=== PATIENT | male | born 1950 | race Caucasian/White ===

== ENCOUNTER 2019-02-28 15:12 | Emergency (ER) | payer MEDICARE ==
[2019-02-28 15:24] VITALS: BP 130/68; PULSE 62; RESP 16; TEMP 97.7
--- NOTE | 2019-02-28 15:36 | ED ---
Upper Extremity HPI - General Chief Complaint: Extremity Injury, Upper Stated Complaint: Fall-Wrist Injury Time Seen by Provider: 02/28/19 15:31 Source: patient Mode of arrival: ambulatory Limitations: no limitations - History of Present Illness Initial Comments: 68-year-old male presenting for evaluation of right wrist pain x 1 day s/p fall. Patient states he fell yesterday catching himself with the right wrist after he tripped trying to put on his pants. Patient states he has not hit his head of injury to any other extremity. Patient states he has had pain in his right wrist with ROM, he states the wrist was bent inward. Patient denies loss of sensation or muscle weakness. Denies pain at elbow or shoulder. Remaining ROS (- ). Upon arrival patient appears well, no acute distress. - Related Data Allergies Allergy/AdvReac Type Severity Reaction Status Date / Time cephalexin [From Keflex] Allergy Rash/Hives Verified 02/28/19 15:22 Review of Systems ROS Statement: Those systems with pertinent positive or pertinent negative responses have been documented in the HPI. ROS Other: All systems not noted in ROS Statement are negative. Past Medical History Past Medical History: CVA/TIA, Hyperlipidemia, Hypertension, Myocardial Infarction ([place]) History of Any Multi-Drug Resistant Organisms: None Reported Past Surgical History: Appendectomy, Back Surgery, Heart Catheterization With Stent, Orthopedic Surgery, Tonsillectomy Additional Past Surgical History / Comment(s): left knee Past Psychological History: No Psychological Hx Reported Smoking Status: Never smoker Past Alcohol Use History: None Reported Past Drug Use History: None Reported General Exam - General Exam Comments Initial Comments: General: The patient is awake and alert, in no distress, and does not appear acutely ill. Eye: Pupils are equal, round and reactive to light, extra-ocular movements are intact. No nystagmus. There is normal conjunctiva bilaterally. No signs of icterus. . No raccoon or Cobb sign. Cardiovascular: There is a regular rate and rhythm. No murmur, rub or gallop is appreciated. Respiratory: Lungs are clear to auscultation, respirations are non-labored, breath sounds are equal. No wheezes, stridor, rales, or rhonchi. Musculoskeletal: No gross deformity of his nose after she saw ecchymosis lacerations or abrasion noted of the wrist or upper extremities bilaterally. Patient is able to fully range at the wrist bilaterally complaint discomfort range of motion at the right wrist. Patient is no anatomical snuffbox tenderness. Strength preserved at the SHOULDERS wrist bilaterally. Patient is able to the okay fingers crossed thumbs up and oppose the small digit and thumb. Patient is +2 equal radial pulses bilaterally. Capillary refill less than 3 seconds. Patient is point localized tenderness over the ulnar aspect of the right wrist. Neurological: A&O x 3. CN II-XII intact, There are no obvious motor or sensory deficits. Coordination appears grossly intact. Speech is normal. Skin: Skin is warm and dry and no rashes or lesions are noted. Psychiatric: Cooperative, appropriate mood & affect, normal judgment. Limitations: no limitations Course Vital Signs 02/28/19 15:19 Temperature 97.7 F Pulse Rate 62 Respiratory 16 Rate Blood Pressure 130/68 O2 Sat by Pulse 98 Oximetry Medical Decision Making - Medical Decision Making 68-year-old male presenting for right wrist pain after fall. Imaging states negative for acute process. Patient neurovascularly intact. Patient placed in Shay bandage. No snuffbox tenderness. Patient advised to follow-up with his primary care provider for the extensive arthritis noted on the imaging studies. As well as to obtain repeat imaging studies if symptoms are persisting greater than 7 days. Rest instruction use of NSAIDs discussed patient discharge appear normal group health care plan given Toradol prior to discharge case discussed mentally provider Dr. Wesley Disposition Clinical Impression: Right wrist pain, Fall Disposition: HOME SELF-CARE Condition: Good Instructions (If sedation given, give patient instructions): R.I.C.E. Treatment (ED), Wrist Sprain (ED) Additional Instructions: Please use medication as discussed. Please follow-up with family doctor in the next 2 days, if pain persists please repeat XR in 1 week. Please return to emergency room if the symptoms increase or worsen or for any other concerns. Is patient prescribed a controlled substance at d/c from ED?: No Referrals: Nonstaff,Physician [Primary Care Provider] - 1-2 days Time of Disposition: 16:23
--- NOTE | 2019-02-28 15:58 | XR ---
EXAMINATION TYPE: XR hand complete RT DATE OF EXAM: 02/28/2019 COMPARISON: NONE HISTORY: Pain TECHNIQUE: Three views are submitted. FINDINGS: There is cystic change involving the scaphoid which appears chronic and there is narrowing of the rad iocarpal joint. Chondrocalcinosis noted. Well-corticated density adjacent to the medial margin of the scaphoid appears chronic. Tiny cyst in the proximal phalanx second digit has a benign appearance. IMPRESSION: 1. No definite acute fracture or dislocation if symptoms persist, follow-up study in 7 to 10 days wo uld be suggested
--- NOTE | 2019-02-28 16:00 | XR ---
EXAMINATION TYPE: XR wrist complete RT DATE OF EXAM: 02/28/2019 CLINICAL HISTORY: Pain from fall on the right wrist TECHNIQUE: Frontal, lateral and oblique images of the right wrist are obtained. Scaphoid view was al so obtained. COMPARISON: None FINDINGS: There is no acute fracture/dislocation evident in the right wrist. Subchondral and subcort ical cysts are present of the radius and multiple carpal bones. Narrowing of the first carpometacarpa l joint and osseous proliferation are seen. The joint spaces in the left wrist appear narrowed. No wi dening. Calcification of the triangular fibrocartilage is seen. The overlying soft tissue appears un remarkable. IMPRESSION: There is no acute fracture or dislocation in the right wrist. Moderate to advanced arthr opathy of the right hand with numerous subcortical cysts, joint space narrowing, and calcification of the triangle fibrocartilage.
[2019-02-28] MEDS ORDERED: KETOROLAC 30 MG/ML 1 ML VIAL IM STA (16:29)
== END 2019-02-28 16:38 | disposition home or self-care (01) ==
LOC: EC 15:12
DX: M25.531 Pain in right wrist (principal); M19.041 Primary osteoarthritis, right hand; Z88.1 Allergy status to other antibiotic agents; W01.0XXA Fall on same level from slipping, tripping and stumbling without subsequent striking against object, initial encounter; Y93.89 Activity, other specified
CPT/HCPCS: 73110; 73130; 99283; 96372; J1885

== ENCOUNTER 2019-05-18 07:03 | Emergency (ER) | payer MEDICARE ==
[2019-05-18 07:14] VITALS: BP 157/68; PULSE 78; RESP 18; TEMP 98.2
--- NOTE | 2019-05-18 07:31 | ED ---
ENT HPI - General Chief complaint: ENT Stated complaint: sore throat Time Seen by Provider: 05/18/19 07:20 Source: patient Mode of arrival: ambulatory Limitations: no limitations - History of Present Illness Initial comments: Patient is a 68-year-old male presenting to emergency Department with complaints of a sore throat. Patient states he's had upper respiratory type symptoms including runny nose, congestion for a few days now. Patient states he put Vicks under his nose and is not shows last night and stated he took in a deep breath and feels like he inhaled or swollowed some Vicks. Patient states he came today because he feels like his throat is irritated or even clothing at times. Patient denies chest pain, difficulty breathing, fever, chills, nausea, vomiting. Patient has no other complaints at this time. Upon arrival to the ER, his vital signs are stable. - Related Data Allergies Allergy/AdvReac Type Severity Reaction Status Date / Time cephalexin [From Keflex] Allergy Rash/Hives Verified 05/18/19 07:14 Review of Systems ROS Statement: Those systems with pertinent positive or pertinent negative responses have been documented in the HPI. ROS Other: All systems not noted in ROS Statement are negative. Past Medical History Past Medical History: CVA/TIA, Hyperlipidemia, Hypertension, Myocardial Infarction ([place]) History of Any Multi-Drug Resistant Organisms: None Reported Past Surgical History: Appendectomy, Back Surgery, Heart Catheterization With Stent, Orthopedic Surgery, Tonsillectomy Additional Past Surgical History / Comment(s): left knee Past Psychological History: No Psychological Hx Reported Smoking Status: Never smoker Past Alcohol Use History: None Reported Past Drug Use History: None Reported General Exam - General Exam Comments Initial Comments: GENERAL: Well-appearing, well-nourished and in no acute distress. HEAD: Atraumatic, normocephalic. EYES: Pupils equal round and reactive to light, extraocular movements intact, sclera anicteric, conjunctiva are normal. ENT: TMs normal, nares patent, oropharynx clear without exudates. Moist mucous membranes. NECK: Normal range of motion, supple without lymphadenopathy or JVD. LUNGS: Breath sounds clear to auscultation bilaterally and equal. No wheezes rales or rhonchi. HEART: Regular rate and rhythm without murmurs, rubs or gallops. ABDOMEN: Soft, nontender, normoactive bowel sounds. No guarding, no rebound. No masses appreciated. : Deferred EXTREMITIES: Normal range of motion, no pitting or edema. No clubbing or cyanosis. NEUROLOGICAL: Cranial nerves II through XII grossly intact. Normal speech, normal gait. PSYCH: Normal mood, normal affect. SKIN: Warm, Dry, normal turgor, no rashes or lesions noted. Limitations: no limitations Course Vital Signs 05/18/19 07:11 Temperature 98.2 F Pulse Rate 78 Respiratory 18 Rate Blood Pressure 157/68 O2 Sat by Pulse 98 Oximetry Medical Decision Making - Medical Decision Making Patient is a 8-year-old male presenting with a sore throat and congestion for 2 days. Patient was concerned he swallowed Vicks. Chest x-ray and soft tissue neck x-ray are both normal, no acute abnormalities. Patient vitals remained sta ble. I discussed these findings with the patient. He'll continue to use [id number] remedies for his cough and clear nasal drainage. Patient is stable for discharge at this time. He is in agreement with this plan of care. Case discussed with Dr. Alexander. Disposition Clinical Impression: Sore throat (viral) Disposition: HOME SELF-CARE Condition: Stable Instructions (If sedation given, give patient instructions): Cold Symptoms (ED) Additional Instructions: Please return to the Emergency Department if symptoms worsen or any other concerns. Follow-up with PCP as symptoms persist. Is patient prescribed a controlled substance at d/c from ED?: No Referrals: Nonstaff,Physician [Primary Care Provider] - 1-2 days
--- NOTE | 2019-05-18 07:58 | XR ---
EXAMINATION TYPE: XR soft tissue neck DATE OF EXAM: 05/18/2019 COMPARISON: None HISTORY: Cough feels like something is stuck in his throat TECHNIQUE: 2 view soft tissue neck FINDINGS: Epiglottis appears normal. Prevertebral space is normal. Multiple anterior vertebral body s purs are noted. No radiopaque foreign bodies are evident. Subglottic airway appears unremarkable. IMPRESSION: 1. Soft tissue neck appears within normal limits. 2. Note is made of degenerative changes within the cervical spine including some anterior vertebral b tk spurring.
--- NOTE | 2019-05-18 07:59 | XR ---
EXAMINATION TYPE: XR chest 2V DATE OF EXAM: 05/18/2019 COMPARISON: None INDICATION: Cough, productive TECHNIQUE: Frontal and lateral views of the chest are obtained. FINDINGS: The heart size is normal. The pulmonary vasculature is normal. The lungs are clear. IMPRESSION: 1. No acute pulmonary process.
== END 2019-05-18 08:15 | disposition home or self-care (01) ==
LOC: EC 07:03
DX: J02.8 Acute pharyngitis due to other specified organisms (principal); I25.2 Old myocardial infarction; I10 Essential (primary) hypertension; Z88.1 Allergy status to other antibiotic agents; Z86.73 Personal history of transient ischemic attack (TIA), and cerebral infarction without residual deficits; Z95.5 Presence of coronary angioplasty implant and graft
CPT/HCPCS: 70360; 71046; 99283

== ENCOUNTER 2020-01-14 12:30 | Emergency (ER) | payer MEDICARE, OTHER ==
[2020-01-14 12:37] VITALS: BP 135/75; PULSE 84; RESP 18; TEMP 98.6
--- NOTE | 2020-01-14 12:37 | ED ---
General Adult HPI - General Stated complaint: Fall Time Seen by Provider: 01/14/20 12:32 Source: patient, EMS, RN notes reviewed - History of Present Illness Initial comments: 61-year-old male presents status post fall with head injury, right shoulder injury, right knee injury. Patient states he was at a restaurant, had went to open a locked door, turned around and fell down one step and then rolled down an additional 3 steps. He did hit his right shoulder, right knee, and the left side of his head. There was no loss of consciousness. Patient is on aspirin and Plavix. He was ambulatory on scene. No chest or abdominal pain. He states that he had tripped and this was a mechanical fall. - Related Data Home Medications Medication Instructions Recorded Confirmed Aspirin [Adult Low Dose Aspirin EC] 81 mg PO HS 01/14/20 01/14/20 Atorvastatin [Lipitor] 80 mg PO HS 01/14/20 01/14/20 Cetirizine HCl [Zyrtec] 10 mg PO DAILY 01/14/20 01/14/20 Clopidogrel [Plavix] 75 mg PO HS 01/14/20 01/14/20 Dulaglutide [Trulicity] 1.5 mg SQ WE 01/14/20 01/14/20 Empagliflozin [Jardiance] 10 mg PO DAILY 01/14/20 01/14/20 Finasteride [Proscar] 5 mg PO DAILY 01/14/20 01/14/20 Fluticasone Nasal Mcleod [Flonase 1 spr EA NOSTRIL DAILY PRN 01/14/20 01/14/20 Nasal Mcleod] Gabapentin 1,600 mg PO DAILY 01/14/20 01/14/20 Gabapentin 800 mg PO HS 01/14/20 01/14/20 Insulin Glargine,Hum.rec.anlog 14 unit SQ HS 01/14/20 01/14/20 [Lantus Solostar] Lidocaine 5% Patch [Lidoderm] 1 patch TOPICAL DAILY PRN 01/14/20 01/14/20 Metoprolol Succinate [Toprol XL] 50 mg PO DAILY 01/14/20 01/14/20 Multivitamins, Thera [Multivitamin 1 tab PO DAILY 01/14/20 01/14/20 (formulary)] Tamsulosin [Flomax] 0.4 mg PO DAILY 01/14/20 01/14/20 glipiZIDE [Glucotrol XL] 10 mg PO DAILY 01/14/20 01/14/20 lisinopriL [Zestril] 2.5 mg PO DAILY 01/14/20 01/14/20 metFORMIN HCL 1,000 mg PO BID 01/14/20 01/14/20 oxyCODONE-APAP 10-325MG [Percocet 1 tab PO TID PRN 01/14/20 01/14/20 10-325 mg] Allergies Allergy/AdvReac Type Severity Reaction Status Date / Time cephalexin [From Keflex] Allergy Rash/Hives Verified 01/14/20 14:11 Review of Systems ROS Statement: Those systems with pertinent positive or pertinent negative responses have been documented in the HPI. ROS Other: All systems not noted in ROS Statement are negative. Past Medical History Past Medical History: CVA/TIA, Hyperlipidemia, Hypertension, Myocardial Infarction ([place]) History of Any Multi-Drug Resistant Organisms: None Reported Past Surgical History: Appendectomy, Back Surgery, Heart Catheterization With Stent, Orthopedic Surgery, Tonsillectomy Additional Past Surgical History / Comment(s): left knee Past Psychological History: No Psychological Hx Reported Past Alcohol Use History: None Reported Past Drug Use History: None Reported General Exam General appearance: alert, in no apparent distress Head exam: Present: normocephalic, other (Small left parietal occipital hematoma, no laceration, no bleeding, no palpable skull deformity) Eye exam: Present: normal appearance, PERRL, EOMI ENT exam: Present: normal exam Neck exam: Present: normal inspection, other (C-collar placed by EMS). Absent: tenderness, meningismus Respiratory exam: Present: normal lung sounds bilaterally. Absent: respiratory distress, wheezes Cardiovascular Exam: Present: regular rate, normal rhythm GI/Abdominal exam: Present: soft. Absent: distended, tenderness, guarding, rebound Extremities exam: Present: other (Pain with range of motion right shoulder, no gross deformity, there is a small abrasion to the right knee, no laceration.) Neurological exam: Present: alert, oriented X3, CN II-XII intact. Absent: motor sensory deficit Psychiatric exam: Present: normal affect, normal mood Skin exam: Present: warm, dry Course Vital Signs 01/14/20 12:30 Temperature 98.6 F Pulse Rate 84 Respiratory 18 Rate Blood Pressure 135/75 O2 Sat by Pulse 96 Oximetry - Reevaluation(s) Reevaluation #1: 01/14/20 12:36 Patient states his tetanus is up-to-date. Medical Decision Making - Medical Decision Making 69-year-old male with fall, minor head injury, no loss consciousness. Patient has minimal external signs of trauma. He has stable vitals. Head CT is performed which is negative for intracranial hemorrhage mass effect. Cervical spine showing arthritis, spondylitic changes, no acute fracture or subluxation. Chest x-ray negative for acute cardiopulmonary disease, x-ray of the right shoulder is negative for fracture dislocation. X-ray of the right knee show some calcium deposition as well as an effusion, no acute fracture. On reevaluation patient is feeling better. Disposition Clinical Impression: Fall, Closed head injury, Knee contusion Disposition: HOME SELF-CARE Condition: Good Instructions (If sedation given, give patient instructions): Fall Prevention for Older Adults (ED), Concussion (ED), Knee Pain (ED), Contusion in Adults (ED) Additional Instructions: Please follow up with her primary care physician, please return with worsening or changing symptoms. Is patient prescribed a controlled substance at d/c from ED?: No Referrals: Nonstaff,Physician [REFERRING] - 1-2 days Time of Disposition: 14:42
--- NOTE | 2020-01-14 13:13 | CT ---
EXAMINATION TYPE: CT brain bridgette soni con DATE OF EXAM: 01/14/2020 COMPARISON: None HISTORY: 69-year-old male with pain after trauma, fall CT DLP: 1771.5 mGycm Automated exposure control for dose reduction was used. Technique: Examination of the head was done in axial plane without intravenous contrast. Coronal and sagittal reconstructions performed. CT of the cervical spine was obtained in axial plane without intravenous injection of contrast mater ial. Coronal and sagittal reformatted images were obtained from the axial views for evaluation of f ractures, spinal alignment and canal. FINDINGS: Head: There is no evidence of acute intracranial hemorrhage, acute ischemic changes, mass, mass-effect, or extra-axial fluid collection. There is no effacement of cerebral sulci or basal subarachnoid cister ns. There is no hydrocephalus. There is no midline shift. Mai-white matter distinction is preserv ed. Paranasal sinuses and mastoid air cells are pneumatized. Orbits and globes are intact. Cervical spine: No craniocervical junction abnormality, predental space widening, or prevertebral soft tissue swellin g. Degenerative changes at the C1 dens articulation. 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 Mild to moderate degenerative disc disease mid to lower cervical spine. No acute fracture of the cervical spine. Scattered facet and uncovertebral joint arthropathy. Alignment is maintained. Moderate left-sided neural foraminal narrowing at C3-C4 and mild on the right. Additional variable mi ld neuroforaminal narrowing throughout. Sagittal and coronal reformatted images confirm above findings. COMBINED IMPRESSION: 1. No acute intracranial abnormality seen. 2. No acute fracture or malalignment of the cervical spine. 3. Mild to moderate multilevel spondylotic change. 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 Moderate left-sided neural foraminal stenosis at C3-C4.
[2020-01-14] MEDS ORDERED: HYDROmorphone 0.5 MG/0.5 ML SYRINGE IM STA (13:27)
--- NOTE | 2020-01-14 13:51 | XR ---
EXAMINATION TYPE: XR chest 1V portable DATE OF EXAM: 01/14/2020 COMPARISON: 05/18/2019 INDICATION: Fall right shoulder pain TECHNIQUE: Frontal and lateral views of the chest are obtained. FINDINGS: The heart size is normal. The pulmonary vasculature is normal. The lungs are clear. No displaced fractures are evident. No pneumothorax is evident. IMPRESSION: 1. No acute pulmonary process.
--- NOTE | 2020-01-14 13:52 | XR ---
EXAMINATION TYPE: XR shoulder complete RT DATE OF EXAM: 01/14/2020 COMPARISON: NONE HISTORY: Pain TECHNIQUE: Shoulder examined in 3 views FINDINGS: The humeral head articulates with the glenoid. Acromioclavicular junction has some hypertrophy. No acute fractures or dislocations are evident. A follow up study can be performed 7-10 days from acute trauma for continued pain. IMPRESSION: 1. No acute osseous abnormality right shoulder
--- NOTE | 2020-01-14 13:53 | XR ---
EXAMINATION TYPE: XR knee complete RT DATE OF EXAM: 01/14/2020 COMPARISON: None HISTORY: Fall down for cement steps TECHNIQUE: Three-view right knee FINDINGS: Meniscal calcification is present in the lateral meniscus. Minimal calcification may be wit hin the medial aspect medial meniscus. Small joint effusion may be present. Anterior superior patella r spurring is present. Anterior tibial spurring is present. No acute fractures are evident. Follow-up exams can be performed 7-10 days from acute trauma for continued pain. IMPRESSION: 1. Correlate for calcium pyrophosphate deposition disease. 2. Mild joint effusion may be present.
== END 2020-01-14 15:07 | disposition home or self-care (01) ==
LOC: EC 12:30
DX: S80.01XA Contusion of right knee, initial encounter (principal); M47.812 Spondylosis without myelopathy or radiculopathy, cervical region; S09.90XA Unspecified injury of head, initial encounter; M25.861 Other specified joint disorders, right knee; M25.461 Effusion, right knee; E78.5 Hyperlipidemia, unspecified; I10 Essential (primary) hypertension; I25.2 Old myocardial infarction; Z86.73 Personal history of transient ischemic attack (TIA), and cerebral infarction without residual deficits; Z95.5 Presence of coronary angioplasty implant and graft; Z79.82 Long term (current) use of aspirin; Z79.899 Other long term (current) drug therapy; Z88.1 Allergy status to other antibiotic agents; W10.9XXA Fall (on) (from) unspecified stairs and steps, initial encounter; Y93.89 Activity, other specified; Y92.009 Unspecified place in unspecified non-institutional (private) residence as the place of occurrence of the external cause
CPT/HCPCS: 96372; 99284; 73030; 73562; 71045; 72125; 70450; J1170

== ENCOUNTER 2020-04-14 23:06 | Emergency (ER) | payer MEDICARE, OTHER ==
[2020-04-14 23:13] VITALS: PULSE 75; RESP 18; TEMP 98
[2020-04-14 23:51] LABS: Glucose,Whole Blood 283 mg/dL (75-99)
[2020-04-15 00:21] LABS: Appearance,Urine Clear (Clear); Bilirubin,Urine Negative (Negative); Blood,Urine Negative (Negative); Color,Urine Light Yellow; Glucose,Urine (UA) 4+ (Negative); Ketones,Urine Negative (Negative); Leukocyte Esterase,Urine Negative (Negative); Nitrite,Urine Negative (Negative); PH, Urine 5.5 (5.0-8.0); Protein,Urine Negative (Negative); Urobilinogen,Urine <2.0 mg/dL (<2.0)
[2020-04-15] MEDS ORDERED: diphenhydrAMINE 50 MG CAP PO STA (00:23)
[2020-04-15] MEDS ORDERED: SULFAMETHOX-TMP 800-160MG 1 EACH TAB PO STA (00:23)
--- NOTE | 2020-04-15 00:23 | ED ---
ENT HPI - General Chief complaint: Dental/Oral Stated complaint: Facial swelling Time Seen by Provider: 04/14/20 23:22 Source: patient Mode of arrival: ambulatory Limitations: no limitations - History of Present Illness Initial comments: This patient is 69-year-old man who presents to be evaluated for number of complaints. He states that his largest concern is that he is having some right facial swelling in the lip and cheek. He also noticed that he had hives on the extremities and then he noticed some swelling to his foreskin tonight. The patient does note that he has had previous episodes of hives, but cannot relate this to any one known exposure. In relation to the facial swelling he states that he does have a cracked tooth though he is not having much in the way of dental pain. No difficulty with speech, swallowing, or breathing. No eye pain or headache. No neck swelling or pain. No fever or chills MD complaint: other -: hour(s) - Related Data Home Medications Medication Instructions Recorded Confirmed Aspirin [Adult Low Dose Aspirin EC] 81 mg PO HS 01/14/20 01/14/20 Atorvastatin [Lipitor] 80 mg PO HS 01/14/20 01/14/20 Cetirizine HCl [Zyrtec] 10 mg PO DAILY 01/14/20 01/14/20 Clopidogrel [Plavix] 75 mg PO HS 01/14/20 01/14/20 Dulaglutide [Trulicity] 1.5 mg SQ WE 01/14/20 01/14/20 Empagliflozin [Jardiance] 10 mg PO DAILY 01/14/20 01/14/20 Finasteride [Proscar] 5 mg PO DAILY 01/14/20 01/14/20 Fluticasone Nasal [place] [Flonase 1 spr EA NOSTRIL DAILY PRN 01/14/20 01/14/20 Nasal [place]] Gabapentin 1,600 mg PO DAILY 01/14/20 01/14/20 Gabapentin 800 mg PO HS 01/14/20 01/14/20 Insulin Glargine,Hum.rec.anlog 14 unit SQ HS 01/14/20 01/14/20 [Lantus Solostar] Lidocaine 5% Patch [Lidoderm] 1 patch TOPICAL DAILY PRN 01/14/20 01/14/20 Metoprolol Succinate [Toprol XL] 50 mg PO DAILY 01/14/20 01/14/20 Multivitamins, Thera [Multivitamin 1 tab PO DAILY 01/14/20 01/14/20 (formulary)] Tamsulosin [Flomax] 0.4 mg PO DAILY 01/14/20 01/14/20 glipiZIDE [Glucotrol XL] 10 mg PO DAILY 01/14/20 01/14/20 lisinopriL [Zestril] 2.5 mg PO DAILY 01/14/20 01/14/20 metFORMIN HCL 1,000 mg PO BID 01/14/20 01/14/20 oxyCODONE-APAP 10-325MG [Percocet 1 tab PO TID PRN 01/14/20 01/14/20 10-325 mg] Previous Rx's Medication Instructions Recorded Sulfamethox-Tmp 800-160Mg [Bactrim 1 each PO Q12HR #10 tab 04/15/20 Ds] diphenhydrAMINE [Benadryl] 50 mg PO QID PRN #20 capsule 04/15/20 Allergies Allergy/AdvReac Type Severity Reaction Status Date / Time acetaminophen [From Percocet] Allergy Itching Verified 04/14/20 23:08 cephalexin [From Keflex] Allergy Rash/Hives Verified 04/14/20 23:08 oxycodone [From Percocet] Allergy Itching Verified 04/14/20 23:08 Review of Systems ROS Statement: Those systems with pertinent positive or pertinent negative responses have been documented in the HPI. ROS Other: All systems not noted in ROS Statement are negative. Constitutional: Denies: fever, chills ENT: Denies: congestion Respiratory: Denies: cough, dyspnea, wheezes Cardiovascular: Denies: chest pain, palpitations, edema Gastrointestinal: Denies: abdominal pain, vomiting, diarrhea Skin: Reports: as per HPI, rash Neurological: Denies: headache, weakness, numbness Past Medical History Past Medical History: CVA/TIA, Hyperlipidemia, Hypertension, Myocardial Infarction ([place]) History of Any Multi-Drug Resistant Organisms: None Reported Past Surgical History: Appendectomy, Back Surgery, Heart Catheterization With Stent, Orthopedic Surgery, Tonsillectomy Additional Past Surgical History / Comment(s): left knee Past Psychological History: No Psychological Hx Reported Smoking Status: Former smoker Past Alcohol Use History: None Reported Past Drug Use History: None Reported General Exam Limitations: no limitations General appearance: alert, in no apparent distress Head exam: Present: atraumatic, normocephalic Eye exam: Present: PERRL, EOMI. Absent: scleral icterus, conjunctival injection ENT exam: Present: normal oropharynx, TM's normal bilaterally, other (There is some mild swelling to the right cheek and the right side of the lower lip. No discrete abscess palpable. There is a dental fracture but there is no obvious dental infection) Neck exam: Present: normal inspection, full ROM. Absent: tenderness, meningismus, lymphadenopathy Respiratory exam: Present: normal lung sounds bilaterally. Absent: respiratory distress, wheezes, rales, rhonchi, stridor Cardiovascular Exam: Present: regular rate, normal rhythm, normal heart sounds. Absent: systolic murmur, diastolic murmur, rubs, gallop GI/Abdominal exam: Present: soft. Absent: distended, tenderness, guarding, rebound, rigid, mass exam: Present: normal inspection, other (Foreskin normal with no evidence of inflammation). Absent: testicular tenderness, urethral discharge, scrotal swelling, circumcision Extremities exam: Present: normal inspection, normal capillary refill. Absent: pedal edema, calf tenderness Neurological exam: Present: alert Skin exam: Present: warm, dry, intact, normal color, urticaria (Posterior thighs bilaterally) Course Vital Signs 04/14/20 04/15/20 23:08 00:51 Temperature 98 F Pulse Rate 75 75 Respiratory 18 18 Rate Blood Pressure 172/77 138/79 O2 Sat by Pulse 97 98 Oximetry Medical Decision Making - Medical Decision Making The patient has had resolution of the urticaria that he had noted earlier other than small linear band across the back of both thighs. In addition the foreskin edema has resolved. I suspect that the patient is having a form of dermatographia some, but as a precaution will be given course of antibiotic in case of early dental infection. Patient to follow with dermatology or immunology for skin testing related to the urticaria. - Lab Data Lab Results 04/14/20 04/15/20 Range/Units 23:49 00:01 POC Glucose (mg/dL) 283 H (75-99) mg/dL POC Glu Thermal Molder ID Stella Santoro Urine Color Light Yellow Urine Appearance Clear (Clear) Urine pH 5.5 (5.0-8.0) Ur Specific [place] 1.030 (1.001-1.035) Urine Protein Negative (Negative) Urine Glucose (UA) 4+ H (Negative) Urine Ketones Negative (Negative) Urine Blood Negative (Negative) Urine Nitrite Negative (Negative) Urine Bilirubin Negative (Negative) Urine Urobilinogen <2.0 (<2.0) mg/dL Ur Leukocyte Esterase Negative (Negative) Disposition Clinical Impression: Urticaria Disposition: HOME SELF-CARE Condition: Good Instructions (If sedation given, give patient instructions): Urticaria (ED), Cellulitis (ED) Prescriptions: Sulfamethox-Tmp 800-160Mg [Bactrim Ds] 1 each PO Q12HR #10 tab diphenhydrAMINE [Benadryl] 50 mg PO QID PRN #20 capsule PRN Reason: rash Is patient prescribed a controlled substance at d/c from ED?: No Referrals: Rip Granados MD [Primary Care Provider] - 1-2 days Ezra Persaud MD [STAFF PHYSICIAN] - 1-2 days
[2020-04-15 00:54] VITALS: BP 138/79
== END 2020-04-15 00:57 | disposition home or self-care (01) ==
LOC: EC 23:06
DX: L50.9 Urticaria, unspecified (principal); K03.81 Cracked tooth; R22.0 Localized swelling, mass and lump, head; E78.5 Hyperlipidemia, unspecified; I10 Essential (primary) hypertension; I25.2 Old myocardial infarction; Z79.82 Long term (current) use of aspirin; Z79.899 Other long term (current) drug therapy; Z79.02 Long term (current) use of antithrombotics/antiplatelets; Z88.1 Allergy status to other antibiotic agents; Z88.5 Allergy status to narcotic agent; Z87.891 Personal history of nicotine dependence; Z86.73 Personal history of transient ischemic attack (TIA), and cerebral infarction without residual deficits; Z95.5 Presence of coronary angioplasty implant and graft
CPT/HCPCS: 36415; 81003; 99283

== ENCOUNTER → 2020-04-17 | Outpatient (CLI) | payer MEDICARE, OTHER | END | disposition home or self-care (01) | LOC: LABWHC1 10:41 | PROVIDERS: ATTEND Psychiatry & Neurology Neurology | DX: Z01.812 Encounter for preprocedural laboratory examination (principal); Z20.828 Contact with and (suspected) exposure to other viral communicable diseases | CPT/HCPCS: U0003; C9803 ==

== ENCOUNTER 2020-04-19 11:08 | Emergency (ER) | payer MEDICARE, OTHER ==
[2020-04-19 11:18] VITALS: BP 137/58; PULSE 83; RESP 19; TEMP 97.9
--- NOTE | 2020-04-19 11:26 | ED ---
General Adult HPI - General Chief complaint: Skin/Abscess/Foreign Body Stated complaint: revisit - rt eye swelling Time Seen by Provider: 04/19/20 11:19 Source: patient Mode of arrival: ambulatory Limitations: no limitations - History of Present Illness Initial comments: 69-year-old male presenting to the emergency department with a chief complaint of right eye swelling. Patient states he was in the emergency department 5 days ago and was discharged with Benadryl and Bactrim. States the initial time he had developed swelling on the tip of the penis, right side of the face and his right hand. He states that ever since he was discharged and began taking medication, swelling has resolved. Although, he woke up this morning and noticed swelling around his right thigh, particularly his upper eyelid. Denies any pain, itching or erythema. Denies any pain with extraocular movements. Denies any trauma or injury to the right eye. He denies any previous ALLERGIC reactions that made his eyes swelled. Does not wear eye contacts. - Related Data Home Medications Medication Instructions Recorded Confirmed Aspirin [Adult Low Dose Aspirin EC] 81 mg PO HS 01/14/20 01/14/20 Atorvastatin [Lipitor] 80 mg PO HS 01/14/20 01/14/20 Cetirizine HCl [Zyrtec] 10 mg PO DAILY 01/14/20 01/14/20 Clopidogrel [Plavix] 75 mg PO HS 01/14/20 01/14/20 Dulaglutide [Trulicity] 1.5 mg SQ WE 01/14/20 01/14/20 Empagliflozin [Jardiance] 10 mg PO DAILY 01/14/20 01/14/20 Finasteride [Proscar] 5 mg PO DAILY 01/14/20 01/14/20 Fluticasone Nasal [place] [Flonase 1 spr EA NOSTRIL DAILY PRN 01/14/20 01/14/20 Nasal [place]] Gabapentin 1,600 mg PO DAILY 01/14/20 01/14/20 Gabapentin 800 mg PO HS 01/14/20 01/14/20 Insulin Glargine,Hum.rec.anlog 14 unit SQ HS 01/14/20 01/14/20 [Lantus Solostar] Lidocaine 5% Patch [Lidoderm] 1 patch TOPICAL DAILY PRN 01/14/20 01/14/20 Metoprolol Succinate [Toprol XL] 50 mg PO DAILY 01/14/20 01/14/20 Multivitamins, Thera [Multivitamin 1 tab PO DAILY 01/14/20 01/14/20 (formulary)] Tamsulosin [Flomax] 0.4 mg PO DAILY 01/14/20 01/14/20 glipiZIDE [Glucotrol XL] 10 mg PO DAILY 01/14/20 01/14/20 lisinopriL [Zestril] 2.5 mg PO DAILY 01/14/20 01/14/20 metFORMIN HCL 1,000 mg PO BID 01/14/20 01/14/20 oxyCODONE-APAP 10-325MG [Percocet 1 tab PO TID PRN 01/14/20 01/14/20 10-325 mg] Previous Rx's Medication Instructions Recorded Sulfamethox-Tmp 800-160Mg [Bactrim 1 each PO Q12HR #10 tab 04/15/20 Ds] diphenhydrAMINE [Benadryl] 50 mg PO QID PRN #20 capsule 04/15/20 Allergies Allergy/AdvReac Type Severity Reaction Status Date / Time acetaminophen [From Percocet] Allergy Itching Verified 04/19/20 11:18 cephalexin [From Keflex] Allergy Rash/Hives Verified 04/19/20 11:18 oxycodone [From Percocet] Allergy Itching Verified 04/19/20 11:18 Review of Systems ROS Statement: Those systems with pertinent positive or pertinent negative responses have been documented in the HPI. ROS Other: All systems not noted in ROS Statement are negative. Past Medical History Past Medical History: CVA/TIA, Hyperlipidemia, Hypertension, Myocardial Infarction ([place]) History of Any Multi-Drug Resistant Organisms: None Reported Past Surgical History: Appendectomy, Back Surgery, Heart Catheterization With Stent, Orthopedic Surgery, Tonsillectomy Additional Past Surgical History / Comment(s): left knee Past Psychological History: No Psychological Hx Reported Smoking Status: Former smoker Past Alcohol Use History: None Reported Past Drug Use History: None Reported General Exam Limitations: no limitations General appearance: alert, in no apparent distress Head exam: Present: atraumatic, normocephalic, normal inspection Eye exam: Present: normal appearance, PERRL, EOMI, periorbital swelling (Mild swelling on the right eye, not erythematous. Mostly in the upper eyelid.). Absent: other (The pain with extraocular movements. No signs of any lesions.) Pupils: Present: normal accommodation ENT exam: Present: normal exam, normal oropharynx, mucous membranes moist, TM's normal bilaterally, normal external ear exam Neck exam: Present: normal inspection, full ROM. Absent: tenderness Respiratory exam: Present: normal lung sounds bilaterally. Absent: respiratory distress, wheezes, rales Cardiovascular Exam: Present: regular rate, normal rhythm, normal heart sounds. Absent: systolic murmur, diastolic murmur Extremities exam: Present: normal inspection, full ROM, normal capillary refill. Absent: tenderness, pedal edema, joint swelling, calf tenderness Back exam: Present: normal inspection, full ROM. Absent: tenderness, CVA tenderness (R), CVA tenderness (L) Neurological exam: Present: alert, oriented X3 Psychiatric exam: Present: normal affect, normal mood. Absent: depressed, agitated Skin exam: Present: warm, dry, intact, normal color, abrasion (Patient has multiple abrasions on his bilateral upper extremities which she says are secondary to repetitive scratching) Course Vital Signs 04/19/20 11:16 Temperature 97.9 F Pulse Rate 83 Respiratory 19 Rate Blood Pressure 137/58 O2 Sat by Pulse 98 Oximetry Medical Decision Making - Medical Decision Making 61-year-old male presenting to the emergency Department with chief complaint of right eye swelling. On physical examination, this appears to be more ALLERGIC versus infectious. There was no trauma to the eye or pain with extraocular movements. The swelling from 5 days ago had resolved and this is a new swelling that is particularly noted to the upper eyelid. There was no stye or other lesions noted. Patient was advised to continue using the Benadryl and applying ice compress. Strict return parameters were thoroughly discussed with patient was understanding and agreeable. Case discussed with physician. Disposition Clinical Impression: Swelling of right eyelid Disposition: HOME SELF-CARE Condition: Stable Instructions (If sedation given, give patient instructions): Urticaria (ED) Additional Instructions: Follow-up with a labor relations consultant. Take Benadryl and apply ice compress to the right eye. Return to emergency department if symptoms worsen. Is patient prescribed a controlled substance at d/c from ED?: No Referrals: Rip Granados MD [Primary Care Provider] - 1-2 days Time of Disposition: 11:53
== END 2020-04-19 12:04 | disposition home or self-care (01) ==
LOC: EC 11:08
DX: H57.89 Other specified disorders of eye and adnexa (principal); M79.89 Other specified soft tissue disorders; E78.5 Hyperlipidemia, unspecified; I10 Essential (primary) hypertension; I25.2 Old myocardial infarction; Z79.82 Long term (current) use of aspirin; Z79.899 Other long term (current) drug therapy; Z79.02 Long term (current) use of antithrombotics/antiplatelets; Z88.5 Allergy status to narcotic agent; Z88.1 Allergy status to other antibiotic agents; Z86.73 Personal history of transient ischemic attack (TIA), and cerebral infarction without residual deficits; Z95.5 Presence of coronary angioplasty implant and graft; Z87.891 Personal history of nicotine dependence
CPT/HCPCS: 99283

== ENCOUNTER 2020-04-24 13:16 | Emergency (ER) | payer MEDICARE, OTHER ==
[2020-04-24] MEDS ORDERED: diphenhydrAMINE 50 MG/ML 1 ML VIAL IVP STA (13:55)
[2020-04-24] MEDS ORDERED: FAMOTIDINE 20 MG/2 ML VIAL IV STA (13:55)
[2020-04-24] MEDS ORDERED: methylPREDNISolone SOD SUCCI 125 MG/2 ML VIAL IV STA (13:55)
--- NOTE | 2020-04-24 14:20 | ED ---
Skin/Abscess/FB HPI - General Chief complaint: Skin/Abscess/Foreign Body Stated complaint: facial swelling & numbness/skin problem on legs Time Seen by Provider: 04/24/20 13:36 Source: patient, RN notes reviewed Mode of arrival: wheelchair Limitations: no limitations - History of Present Illness Initial comments: This a 69-year-old male presents emergency Department with chief complaint of ALLERGIC symptoms. Patient states she's been seen twice in emergency from for the symptoms. Patient states that he's had some facial swelling, rash on his legs and torso. Patient states that when he takes Benadryl it does improve. Patient states that he has not taken any recent Benadryl he states is very itchy today no difficulties, difficulty breathing. Patient also states he had surgery on his back which she had pain similar placed. Patient states he was also placed on Bactrim which seems to maybe worsen the symptoms. Patient offers no other complaints. - Related Data Home Medications Medication Instructions Recorded Confirmed Aspirin [Adult Low Dose Aspirin EC] 81 mg PO HS 01/14/20 04/24/20 Atorvastatin [Lipitor] 80 mg PO HS 01/14/20 04/24/20 Cetirizine HCl [Zyrtec] 10 mg PO DAILY 01/14/20 04/24/20 Clopidogrel [Plavix] 75 mg PO HS 01/14/20 04/24/20 Dulaglutide [Trulicity] 1.5 mg SQ WE 01/14/20 04/24/20 Empagliflozin [Jardiance] 10 mg PO DAILY 01/14/20 04/24/20 Finasteride [Proscar] 5 mg PO DAILY 01/14/20 04/24/20 Fluticasone Nasal [place] [Flonase 1 spr EA NOSTRIL DAILY PRN 01/14/20 04/24/20 Nasal [place]] Gabapentin 800 mg PO TID 01/14/20 04/24/20 Insulin Glargine,Hum.rec.anlog 18 unit SQ HS 01/14/20 04/24/20 [Lantus Solostar] Lidocaine 5% Patch [Lidoderm] 1 patch TOPICAL DAILY PRN 01/14/20 04/24/20 Metoprolol Succinate [Toprol XL] 50 mg PO DAILY 01/14/20 04/24/20 Tamsulosin [Flomax] 0.4 mg PO HS 01/14/20 04/24/20 glipiZIDE [Glucotrol XL] 10 mg PO BID 01/14/20 04/24/20 lisinopriL [Zestril] 2.5 mg PO DAILY 01/14/20 04/24/20 metFORMIN HCL 1,000 mg PO BID 01/14/20 04/24/20 oxyCODONE-APAP 10-325MG [Percocet 1 tab PO TID PRN 01/14/20 04/24/20 10-325 mg] Sulfamethox-Tmp 800-160Mg [Bactrim 1 tab PO Q12HR 04/24/20 04/24/20 Ds] Previous Rx's Medication Instructions Recorded diphenhydrAMINE [Benadryl] 50 mg PO QID PRN #20 capsule 04/15/20 Famotidine [Pepcid] 20 mg PO BID #28 tablet 04/24/20 diphenhydrAMINE [Benadryl] 50 mg PO QID PRN #30 capsule 04/24/20 predniSONE 50 mg PO DAILY #2 tab 04/24/20 Allergies Allergy/AdvReac Type Severity Reaction Status Date / Time acetaminophen [From Percocet] Allergy Itching Verified 04/24/20 14:13 bacitracin Allergy Rash/Hives Verified 04/24/20 14:13 [From Neosporin ([id number])] cephalexin [From Keflex] Allergy Rash/Hives Verified 04/24/20 14:13 neomycin Allergy Rash/Hives Verified 04/24/20 14:13 [From Neosporin ([id number])] oxycodone [From Percocet] Allergy Itching Verified 04/24/20 14:13 polymyxin B Allergy Rash/Hives Verified 04/24/20 14:13 [From Neosporin ([id number])] Review of Systems ROS Statement: Those systems with pertinent positive or pertinent negative responses have been documented in the HPI. ROS Other: All systems not noted in ROS Statement are negative. Past Medical History Past Medical History: CVA/TIA, Hyperlipidemia, Hypertension, Myocardial Infarction ([place]) History of Any Multi-Drug Resistant Organisms: None Reported Past Surgical History: Appendectomy, Back Surgery, Heart Catheterization With Stent, Orthopedic Surgery, Tonsillectomy Additional Past Surgical History / Comment(s): left knee Past Psychological History: No Psychological Hx Reported Smoking Status: Former smoker Past Alcohol Use History: None Reported Past Drug Use History: None Reported General Exam Limitations: no limitations General appearance: alert, in no apparent distress Head exam: Present: atraumatic, normocephalic, normal inspection Eye exam: Present: normal appearance, PERRL, EOMI. Absent: scleral icterus, conjunctival injection, periorbital swelling ENT exam: Present: mucous membranes moist. Absent: normal exam, normal oropharynx (Mild swelling left upper lip, left cheek, lower dentition edentulous, upper denture noted) Neck exam: Present: normal inspection, full ROM. Absent: tenderness, meningismus, lymphadenopathy Respiratory exam: Present: normal lung sounds bilaterally. Absent: respiratory distress, wheezes, rales, rhonchi, stridor Cardiovascular Exam: Present: regular rate, normal rhythm, normal heart sounds. Absent: systolic murmur, diastolic murmur, rubs, gallop, clicks GI/Abdominal exam: Present: soft, normal bowel sounds. Absent: distended, tenderness, guarding, rebound, rigid Neurological exam: Present: alert, oriented X3, CN II-XII intact, reflexes normal, other (No facialasymmetry, no extremity weakness). Absent: motor sensory deficit Skin exam: Present: warm, dry, intact, normal color, urticaria (Torso, lower extremity). Absent: rash Course Vital Signs 04/24/20 13:21 Temperature 97.9 F Pulse Rate 92 Respiratory 20 Rate Blood Pressure 122/71 O2 Sat by Pulse 98 Oximetry Medical Decision Making - Medical Decision Making 7-year-old male presented for rash facial swelling. Symptoms are greatly improved after site Medrol Pepcid and Benadryl. Patient has no focal source of infection. Patient facial swelling has been ongoing and location is related to ALLERGIC symptoms. 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 Return parameters discussed. Disposition Clinical Impression: Urticaria Disposition: HOME SELF-CARE Condition: Stable Instructions (If sedation given, give patient instructions): Urticaria (ED) Additional Instructions: Please return to the Emergency Department if symptoms worsen or any other concerns. Prescriptions: diphenhydrAMINE [Benadryl] 50 mg PO QID PRN #30 capsule PRN Reason: ALLERGIC symptoms Famotidine [Pepcid] 20 mg PO BID #28 tablet predniSONE 50 mg PO DAILY #2 tab Is patient prescribed a controlled substance at d/c from ED?: No Referrals: Rip Granados MD [Primary Care Provider] - 1-2 days Lisa Ortega MD [STAFF PHYSICIAN] - 1-2 days Ezra Persaud MD [STAFF PHYSICIAN] - 1-2 days Time of Disposition: 14:52
[2020-04-24 14:57] VITALS: BP 137/62; PULSE 77; RESP 18; TEMP 98.1
== END 2020-04-24 14:56 | disposition home or self-care (01) ==
LOC: EC 13:16
DX: L50.9 Urticaria, unspecified (principal); I10 Essential (primary) hypertension; E78.5 Hyperlipidemia, unspecified; I25.2 Old myocardial infarction; Z79.82 Long term (current) use of aspirin; Z79.899 Other long term (current) drug therapy; Z79.4 Long term (current) use of insulin; Z79.02 Long term (current) use of antithrombotics/antiplatelets; Z88.5 Allergy status to narcotic agent; Z88.1 Allergy status to other antibiotic agents; Z88.6 Allergy status to analgesic agent; Z86.73 Personal history of transient ischemic attack (TIA), and cerebral infarction without residual deficits; Z87.891 Personal history of nicotine dependence
CPT/HCPCS: 99283; 96374; 96375 ×2; J1200; J2930

== ENCOUNTER 2020-07-14 15:04 | Emergency (ER) | payer MEDICARE, OTHER ==
[2020-07-14 15:13] VITALS: RESP 16
[2020-07-14] MEDS ORDERED: dexAMETHasone 4 MG TAB PO STA (15:29)
[2020-07-14] MEDS ORDERED: diphenhydrAMINE 50 MG/ML 1 ML VIAL IM STA (15:29)
[2020-07-14] MEDS ORDERED: FAMOTIDINE 20 MG TAB PO STA (15:30)
--- NOTE | 2020-07-14 15:34 | ED ---
General Adult HPI - General Chief complaint: Allergic Reaction Stated complaint: Mouth and throat pain Time Seen by Provider: 07/14/20 15:15 Source: patient Mode of arrival: ambulatory Limitations: no limitations - History of Present Illness Initial comments: Dictation was produced using [employer] dictation software. please excuse any grammatical, word or spelling errors. This patient was cared for during a federal and state declared state of emergency secondary to Covid 19 Chief Complaint: 69-year-old male presents with acute body rash and sensation of facial swelling History of Present Illness: 69-year-old male who presents today with symptoms of acute body rash. He states that since last night he's been having pruritic rash to his right upper extremity and in his suprapubic area. States that his rash symptoms are slowly letting up. Patient also noticed today that he was having sensation of his face swelling. Denies any trouble breathing. Denies any trouble swallowing. He is allegedly had symptoms like this in the past. He has not been evaluated by a acid remover for this. Recently he had his vaccine. Denies any abdominal pain. No shortness of breath. No lightheadedness. The ROS documented in this emergency department record has been reviewed and confirmed by me. Those systems with pertinent positive or negative responses have been documented in the HPI. All other systems are other negative and/or noncontributory. PHYSICAL EXAM: General Impression: Alert and oriented x3, not in acute distress HEENT: Normocephalic atraumatic, extra-ocular movements intact, pupils equal and reactive to light bilaterally, mucous membranes moist, no appreciable facial swelling, no appreciable oral swelling, normal phonation Cardiovascular: Heart regular rate and rhythm Chest: Able to complete full sentences, no retractions, no tachypnea, lungs clear to auscultation bilaterally Abdomen: abdomen soft, non-tender, non-distended, no organomegaly Musculoskeletal: Pulses present and equal in all extremities, no peripheral edema Motor: no focal deficits noted Neurological: CN II-XII grossly intact, no focal motor or sensory deficits noted Skin: Faint Erythematous macular rash E right antecubital area and suprapubic area Psych: Normal affect and mood ED course: 69-year-old male presents with skin reaction signs upon arrival are within acceptable limits. No concern for anaphylaxis. Patient does not have any physical exam findings to suggest angioedema. Physical examination is benign. It is unclear what is causing patient's symptoms. Chart use performed. Patient was seen on multiple occasions for the same complaint. He is advised to follow-up with acid remover and primary care physician. Patient observed in the emergency department for approximately an hour and 30 minutes. He is reevaluated at 4:30 PM stable medical condition. Tolerated orals and not showing any signs of distress. Patient given ALLERGIC cocktail. Patient's clinical stable. Strongly advised to follow-up with dermatology. Patient given referral to acid remover in the area. Return parameters discussed. - Related Data Home Medications Medication Instructions Recorded Confirmed Aspirin [Adult Low Dose Aspirin EC] 81 mg PO HS 01/14/20 04/24/20 Atorvastatin [Lipitor] 80 mg PO HS 01/14/20 04/24/20 Cetirizine HCl [Zyrtec] 10 mg PO DAILY 01/14/20 04/24/20 Clopidogrel [Plavix] 75 mg PO HS 01/14/20 04/24/20 Dulaglutide [Trulicity] 1.5 mg SQ WE 01/14/20 04/24/20 Empagliflozin [Jardiance] 10 mg PO DAILY 01/14/20 04/24/20 Finasteride [Proscar] 5 mg PO DAILY 01/14/20 04/24/20 Fluticasone Nasal [place] [Flonase 1 spr EA NOSTRIL DAILY PRN 01/14/20 04/24/20 Nasal [place]] Gabapentin 800 mg PO TID 01/14/20 04/24/20 Insulin Glargine,Hum.rec.anlog 18 unit SQ HS 01/14/20 04/24/20 [Lantus Solostar] Lidocaine 5% Patch [Lidoderm] 1 patch TOPICAL DAILY PRN 01/14/20 04/24/20 Metoprolol Succinate [Toprol XL] 50 mg PO DAILY 01/14/20 04/24/20 Tamsulosin [Flomax] 0.4 mg PO HS 01/14/20 04/24/20 glipiZIDE [Glucotrol XL] 10 mg PO BID 01/14/20 04/24/20 lisinopriL [Zestril] 2.5 mg PO DAILY 01/14/20 04/24/20 metFORMIN HCL 1,000 mg PO BID 01/14/20 04/24/20 oxyCODONE-APAP 10-325MG [Percocet 1 tab PO TID PRN 01/14/20 04/24/20 10-325 mg] Sulfamethox-Tmp 800-160Mg [Bactrim 1 tab PO Q12HR 04/24/20 04/24/20 Ds] Previous Rx's Medication Instructions Recorded diphenhydrAMINE [Benadryl] 50 mg PO QID PRN #20 capsule 04/15/20 Famotidine [Pepcid] 20 mg PO BID #28 tablet 04/24/20 diphenhydrAMINE [Benadryl] 50 mg PO QID PRN #30 capsule 04/24/20 predniSONE 50 mg PO DAILY #2 tab 04/24/20 Allergies Allergy/AdvReac Type Severity Reaction Status Date / Time acetaminophen [From Percocet] Allergy Itching Verified 07/14/20 15:13 bacitracin Allergy Rash/Hives Verified 07/14/20 15:13 [From Neosporin ([id number])] cephalexin [From Keflex] Allergy Rash/Hives Verified 07/14/20 15:13 neomycin Allergy Rash/Hives Verified 07/14/20 15:13 [From Neosporin ([id number])] oxycodone [From Percocet] Allergy Itching Verified 07/14/20 15:13 polymyxin B Allergy Rash/Hives Verified 07/14/20 15:13 [From Neosporin ([id number])] Review of Systems ROS Statement: Those systems with pertinent positive or pertinent negative responses have been documented in the HPI. ROS Other: All systems not noted in ROS Statement are negative. Past Medical History Past Medical History: CVA/TIA, Hyperlipidemia, Hypertension, Myocardial Infarction ([place]) History of Any Multi-Drug Resistant Organisms: None Reported Past Surgical History: Appendectomy, Back Surgery, Heart Catheterization With Stent, Orthopedic Surgery, Tonsillectomy Additional Past Surgical History / Comment(s): left knee Past Psychological History: No Psychological Hx Reported Smoking Status: Former smoker Past Alcohol Use History: None Reported Past Drug Use History: None Reported General Exam Limitations: no limitations Course Vital Signs 07/14/20 07/14/20 15:08 15:51 Temperature 98.7 F Pulse Rate 85 Respiratory 16 16 Rate Blood Pressure 155/73 O2 Sat by Pulse 99 Oximetry Disposition Clinical Impression: Rash Disposition: HOME SELF-CARE Condition: Good Instructions (If sedation given, give patient instructions): Urticaria (ED) Is patient prescribed a controlled substance at d/c from ED?: No Referrals: Tc Persaud MD [STAFF PHYSICIAN] - 1-2 days Time of Disposition: 16:28
[2020-07-14 16:36] VITALS: BP 131/69; PULSE 83; TEMP 97.5
== END 2020-07-14 16:35 | disposition home or self-care (01) ==
LOC: EC 15:04
DX: R21 Rash and other nonspecific skin eruption (principal); E78.5 Hyperlipidemia, unspecified; I10 Essential (primary) hypertension; I25.2 Old myocardial infarction; Z79.82 Long term (current) use of aspirin; Z79.899 Other long term (current) drug therapy; Z88.1 Allergy status to other antibiotic agents; Z88.5 Allergy status to narcotic agent; Z90.49 Acquired absence of other specified parts of digestive tract; Z95.5 Presence of coronary angioplasty implant and graft; Z87.891 Personal history of nicotine dependence; Z86.73 Personal history of transient ischemic attack (TIA), and cerebral infarction without residual deficits
CPT/HCPCS: 99282; J8540; J1200

== ENCOUNTER 2022-04-01 14:38 | Emergency (ER) | payer MEDICARE, OTHER ==
--- NOTE | 2022-04-01 15:58 | XR ---
EXAMINATION TYPE: XR tibia fibula RT DATE OF EXAM: 04/01/2022 CLINICAL HISTORY: Pain and redness. TECHNIQUE: Two views of the right leg are obtained. COMPARISON: Right knee x-ray January 14, 2020. FINDINGS: There is no acute fracture or dislocation seen in the right tibia or fibula. Spurring from anterosuperior patellar distal quadriceps tendon insertion is redemonstrated. Meniscal calcification consistent with chondrocalcinosis is redemonstrated. Large inferior calcaneal spur. Smaller spurring posterior superior calcaneus at the distal Achilles tendon insertion. The overlying soft tissue appe ars unremarkable. No suspicious bony destruction identified. IMPRESSION: As above.
--- NOTE | 2022-04-01 16:34 | US ---
EXAMINATION TYPE: US venous doppler duplex LE RT DATE OF EXAM: 04/01/2022 4:28 PM COMPARISON: NONE CLINICAL HISTORY: pain. Pain right leg x 1 week SIDE PERFORMED: Right TECHNIQUE: The lower extremity deep venous system is examined utilizing real time linear array sonog jarvis with graded compression, doppler sonography and color-flow sonography. VESSELS IMAGED: Common Femoral Vein Deep Femoral Vein Greater Saphenous Vein * Femoral Vein Popliteal Vein Small Saphenous Vein * Proximal Calf Veins (* superficial vessels) Right Leg: Negative for DVT, Grayscale, color doppler, spectral doppler imaging performed of the rainer p veins of the lower extremities. There is normal flow, compressibility, vascular waveforms. IMPRESSION: No evidence for deep vein thrombosis of the right lower extremity.
[2022-04-01 16:40] VITALS: BP 170/74; PULSE 72; RESP 16; TEMP 98.1
--- NOTE | 2022-04-01 16:44 | ED ---
Extremity Problem HPI - General Chief complaint: Extremity Problem,Nontraumatic Stated complaint: R leg pain Time Seen by Provider: 04/01/22 15:03 Source: patient Mode of arrival: ambulatory Limitations: no limitations - History of Present Illness Initial comments: Patient states that he has pain in the right leg. He has no weakness. He has no paresthesias. He doesn't recall any specific injuries. He has no loss of bowel or bladder continence. He has no urinary retention. He has no fevers or chills. - Related Data Home Medications Medication Instructions Recorded Confirmed Aspirin [Adult Low Dose Aspirin EC] 81 mg PO HS 01/14/20 04/24/20 Atorvastatin [Lipitor] 80 mg PO HS 01/14/20 04/24/20 Cetirizine HCl [Zyrtec] 10 mg PO DAILY 01/14/20 04/24/20 Clopidogrel [Plavix] 75 mg PO HS 01/14/20 04/24/20 Dulaglutide [Trulicity] 1.5 mg SQ WE 01/14/20 04/24/20 Empagliflozin [Jardiance] 10 mg PO DAILY 01/14/20 04/24/20 Finasteride [Proscar] 5 mg PO DAILY 01/14/20 04/24/20 Fluticasone Nasal [place] [Flonase 1 spr EA NOSTRIL DAILY PRN 01/14/20 04/24/20 Nasal [place]] Gabapentin 800 mg PO TID 01/14/20 04/24/20 Insulin Glargine,Hum.rec.anlog 18 unit SQ HS 01/14/20 04/24/20 [Lantus Solostar] Lidocaine 5% Patch [Lidoderm] 1 patch TOPICAL DAILY PRN 01/14/20 04/24/20 Metoprolol Succinate [Toprol XL] 50 mg PO DAILY 01/14/20 04/24/20 Tamsulosin [Flomax] 0.4 mg PO HS 01/14/20 04/24/20 glipiZIDE [Glucotrol XL] 10 mg PO BID 01/14/20 04/24/20 lisinopriL [Zestril] 2.5 mg PO DAILY 01/14/20 04/24/20 metFORMIN HCL [Glucophage] 1,000 mg PO BID 01/14/20 04/24/20 oxyCODONE-APAP 10-325MG [Percocet 1 tab PO TID PRN 01/14/20 04/24/20 10-325 mg] Sulfamethox-Tmp 800-160Mg [Bactrim 1 tab PO Q12HR 04/24/20 04/24/20 Ds] Previous Rx's Medication Instructions Recorded diphenhydrAMINE [Benadryl] 50 mg PO QID PRN #20 capsule 04/15/20 Famotidine [Pepcid] 20 mg PO BID #28 tablet 04/24/20 diphenhydrAMINE [Benadryl] 50 mg PO QID PRN #30 capsule 04/24/20 predniSONE 50 mg PO DAILY #2 tab 04/24/20 Doxycycline Hyclate 100 mg PO BID #20 capsule 04/01/22 Allergies Allergy/AdvReac Type Severity Reaction Status Date / Time SAMINA Inhibitors Allergy Unknown Verified 04/01/22 14:42 acetaminophen [From Percocet] Allergy Itching Verified 04/01/22 14:42 ARB-Angiotensin Receptor Allergy Unknown Verified 04/01/22 14:42 Antagonist bacitracin Allergy Rash/Hives Verified 04/01/22 14:42 [From Neosporin ([id number])] cephalexin [From Keflex] Allergy Rash/Hives Verified 04/01/22 14:42 neomycin Allergy Rash/Hives Verified 04/01/22 14:42 [From Neosporin ([id number])] oxycodone [From Percocet] Allergy Itching Verified 04/01/22 14:42 polymyxin B Allergy Rash/Hives Verified 04/01/22 14:42 [From Neosporin ([id number])] Review of Systems ROS Statement: Those systems with pertinent positive or pertinent negative responses have been documented in the HPI. ROS Other: All systems not noted in ROS Statement are negative. Past Medical History Past Medical History: CVA/TIA, Hyperlipidemia, Hypertension, Myocardial Infarction ([place]) History of Any Multi-Drug Resistant Organisms: None Reported Past Surgical History: Appendectomy, Back Surgery, Heart Catheterization With Stent, Orthopedic Surgery, Tonsillectomy Additional Past Surgical History / Comment(s): left knee Past Psychological History: No Psychological Hx Reported Smoking Status: Former smoker Past Alcohol Use History: None Reported Past Drug Use History: None Reported General Exam Limitations: no limitations General appearance: alert, in no apparent distress Head exam: Present: atraumatic, normocephalic, normal inspection Eye exam: Present: normal appearance, PERRL, EOMI. Absent: scleral icterus, conjunctival injection, periorbital swelling ENT exam: Present: normal exam, mucous membranes moist Neck exam: Present: normal inspection. Absent: tenderness, meningismus, lymphadenopathy Respiratory exam: Present: normal lung sounds bilaterally. Absent: respiratory distress, wheezes, rales, rhonchi, stridor Cardiovascular Exam: Present: regular rate, normal rhythm, normal heart sounds. Absent: systolic murmur, diastolic murmur, rubs, gallop, clicks GI/Abdominal exam: Present: soft, normal bowel sounds. Absent: distended, tenderness, guarding, rebound, rigid Extremities exam: Present: normal inspection, full ROM, normal capillary refill. Absent: tenderness, pedal edema, joint swelling, calf tenderness Back exam: Present: normal inspection Neurological exam: Present: alert, oriented X3, CN II-XII intact Psychiatric exam: Present: normal affect, normal mood Skin exam: Present: warm, dry, intact, normal color. Absent: rash Course Vital Signs 04/01/22 04/01/22 14:40 16:40 Temperature 98.7 F 98.1 F Pulse Rate 79 72 Respiratory 20 16 Rate Blood Pressure 170/74 O2 Sat by Pulse 99 97 Oximetry Medical Decision Making - Medical Decision Making Patient complains of right leg pain. My examination the patient has intact distal pulses, full strength. Ultrasound of the vascular structures is normal. X-ray showed no acute emergency. Patient is stable for discharge. Disposition Clinical Impression: Leg pain Disposition: HOME SELF-CARE Condition: Good Instructions (If sedation given, give patient instructions): Leg Pain (ED) Prescriptions: Doxycycline Hyclate 100 mg PO BID #20 capsule Is patient prescribed a controlled substance at d/c from ED?: No Referrals: Rip Granados MD [Primary Care Provider] - 1-2 days
== END 2022-04-01 16:56 | disposition home or self-care (01) ==
LOC: EC 14:38
DX: M79.604 Pain in right leg (principal); G45.9 Transient cerebral ischemic attack, unspecified; E78.5 Hyperlipidemia, unspecified; I10 Essential (primary) hypertension; I25.2 Old myocardial infarction; Z87.891 Personal history of nicotine dependence; Z79.82 Long term (current) use of aspirin; Z79.02 Long term (current) use of antithrombotics/antiplatelets; Z79.891 Long term (current) use of opiate analgesic; Z79.01 Long term (current) use of anticoagulants; Z88.8 Allergy status to other drugs, medicaments and biological substances; Z88.6 Allergy status to analgesic agent; Z88.1 Allergy status to other antibiotic agents; Z88.5 Allergy status to narcotic agent; Z79.899 Other long term (current) drug therapy
CPT/HCPCS: 99284

== ENCOUNTER → 2023-07-23 | Outpatient (CLI) | payer MEDICARE, OTHER ==
[2023-07-24 02:05] LABS: Basophils # (A) 0.05 X 10*3/uL (0.00-0.10); Basophils % (A) 0.6 %; Eosinophils # (A) 0.63 X 10*3/uL (0.04-0.35); Eosinophils % (A) 7.2 %; HCT 40.5 % (39.6-50.0); HGB 12.7 g/dL (13.0-17.0); Lymphocytes # (A) 2.65 X 10*3/uL (0.90-5.00); Lymphocytes % (A) 30.3 %; MCH 27.7 pg (27.0-32.0); MCHC 31.4 g/dL (32.0-37.0); MCV 88.2 FL (80.0-97.0); Mean Platelet Volume 11.3 FL (9.5-12.2); Monocytes # (A) 0.96 X 10*3/uL (0.20-1.00); NRBC Per 100 WBC 0 X 10*3/uL (0.00-0.01); Neutrophils # (A) 4.42 X 10*3/uL (1.80-7.70); Neutrophils % (A) 50.4 %; Platelet Count 202 X 10*3/uL (140-440); RBC 4.59 X 10*6/uL (4.40-5.60); RDW 13.4 % (11.5-14.5); WBC 8.75 X 10*3/uL (4.50-10.00)
[2023-07-24 02:51] LABS: Anion Gap 11.2 mmol/L (4.00-12.00); Carbon Dioxide 24.8 mmol/L (21.6-31.8); Potassium 4.8 mmol/L (3.5-5.5)
== END | disposition home or self-care (01) ==
LOC: LABPAT 15:33
PROVIDERS: ATTEND Orthopaedic Surgery
DX: Z01.812 Encounter for preprocedural laboratory examination (principal); M23.92 Unspecified internal derangement of left knee
CPT/HCPCS: 36415; 80051; 85025; 93005

== ENCOUNTER 2023-07-29 08:07 | Day surgery (SDC) | payer MEDICARE, OTHER ==
--- NOTE | 2023-07-28 12:01 | HP ---
HISTORY AND PHYSICAL DATE OF SURGERY: 07/29/2023. HISTORY OF PRESENT ILLNESS: Beto Poole is a 72-year-old gentleman, seen with progressive left knee pain. We discussed options regarding treatment. He elected to proceed with left knee arthroscopy. Consent was obtained. Cardiac clearance was provided by Dr. Pedersen. PAST MEDICAL HISTORY: Hypertension, hyperlipidemia, jxz-nlttzzx-lfcvofmlo diabetes, and cardiovascular disease. PAST SURGICAL HISTORY: Abdominoplasty, left knee arthroscopy, left shoulder arthroscopy, cardiac catheterization with stents, and laminectomy. DAILY MEDICATIONS: 1. Aspirin. 2. Atorvastatin. 3. Jardiance. 4. Losartan. 5. Metformin. 6. Metoprolol. 7. Plavix. 8. Trulicity. ALLERGIES: 1. SAMINA inhibitors. 2. Lisinopril. 3. Neosporin. SOCIAL HISTORY: Denies current tobacco use. PHYSICAL EVALUATION OF THE LEFT KNEE: His range of motion is 0 to 125 degrees. Moderate effusion. Tenderness along the medial and lateral joint lines with positive medial Javi's. Ligaments stable. Hip rotation without pain. Distal neurovascular exam is intact. IMAGING STUDIES: Radiographs of the left knee revealed mild osteoarthritis. IMPRESSION: 1. Internal derangement of left knee with meniscal tear. 2. Hypertension. 3. Hyperlipidemia. 4. Goo-qtmkuvv-cqtkdfknu diabetes. 5. Cardiovascular disease. PLAN: Left knee arthroscopy with partial meniscectomy and debridement. MMODL / IJN: [id number] /
[~2023-07-29 08:07] MED LIST: HYDROmorphone 0.5 MG/0.5 ML SYRINGE IVP PRN; LIDOCAINE 1% (10MG/ML) FOR IV START INTRADERMA PRN
[2023-07-29] MEDS: LACTATED RINGERS 1,000 ML IV SCH (08:50)
[2023-07-29] MEDS: ONDANSETRON 4 MG/2 ML VIAL IVP ONE (09:08)
[2023-07-29 09:12] LABS: Glucose,Whole Blood 201 mg/dL (70-110)
[2023-07-29] MEDS ORDERED: PROPOFOL 10 MG/ML 20 ML VIAL IV ONE (09:40)
[2023-07-29] MEDS ORDERED: KETOROLAC 15 MG/ML 1 ML VIAL ONE (09:40)
[2023-07-29] MEDS ORDERED: MIDAZOLAM 2 MG/2 ML VIAL ONE (09:40)
[2023-07-29] MEDS ORDERED: HYDROmorphone (PF) 1 MG/ML ONE (09:40)
[2023-07-29] MEDS ORDERED: LIDOCAINE 1% INJ 10MG/ML (20 ML MDV) ONE (09:40)
[2023-07-29] MEDS ORDERED: fentaNYL (PF) 50 MCG/ML 2 ML AMP ONE (09:40)
[2023-07-29] MEDS: BUPIVACAINE (PF) 0.25% 30 ML VIAL SQ ONE ×3 (09:41→10:18)
--- NOTE | 2023-07-29 10:35 | P.OP ---
Date of Procedure: 07/29/23 Preoperative Diagnosis: Internal derangement left knee Postoperative Diagnosis: 1. Tear medial and lateral meniscus left knee 2. Grade IV chondromalacia medial femoral condyle left knee 3. Reactive synovitis medial, lateral and suprapatellar compartments left knee 4. 1 cm loose body left knee Procedure(s) Performed: 1. Arthroscopic partial medial and lateral meniscectomy left knee 2. Arthroscopic microfracture medial femoral condyle left knee 3. Arthroscopic partial synovectomy medial, lateral and suprapatellar compartments left knee 4. Arthroscopic removal 1 cm loose body left knee Anesthesia: PKA, local Surgeon: Brandon Rendon Estimated Blood Loss (ml): 6 Pathology: none sent Condition: stable Disposition: PACU Indications for Procedure: 72-year-old gentleman seen with progressive left knee pain. After having treatment options discussed, he elected to proceed with arthroscopy. Operative Findings: See description of procedure Description of Procedure: Patient was taken to the operative suite. Patient underwent a general anesthetic by the department of anesthesia. Patient was given preoperative antibiotics. The left lower extremity was placed in a well-padded arthroscopic leg guzmán. The left leg was prepped and draped in the normal sterile orthopedic fashion. A lateral parapatellar and suprapatellar incision was made. Trochars were inserted. Arthroscopy was initiated. Suprapatellar pouch revealed diffuse thick reactive synovitis. The patellofemoral joint appeared to articular congruently. There was grade I chondromalacia of the patella. The scope was guided into the medial gutter. No loose bodies or plica were identified the scope was then guided into the medial compartment. A medial parapatellar incision was made. Trocar inserted followed by probe. There was a complex tear involving the posterior horn and mid body of the medial meniscus. There were grade III/IV chondromalacia changes of the medial femoral condyle with osteochondral flap tears present. There was thick reactive synovitis anteriorly. I performed a partial medial meniscectomy getting down to stable meniscal tissue. I performed a chondroplasty of the medial femoral condyle getting down to stable osteochondral tissue. I performed a partial synovectomy decompressing the thick reactive synovitis. I noted an area of grade IV chondromalacia weightbearing surface medial femoral condyle measuring around 1 cm. I introduced a microfracture awl and I performed a microfracture to that area penetrating the bone with resultant bleeding at the microfracture site. The residual meniscus was probed and was found to be stable. The residual osteochondral surface appeared stable. There was good decompression of the synovitis. Scope and probe were then guided into the intercondylar notch. I noted a complete ACL tear. The PCL appeared stable.. The scope and probe were then guided into lateral compartment. There was a complex tear involving the anterior horn, mid body and posterior horn the lateral meniscus. I did encounter a loose body. I introduced a loose body forceps and removed that without difficulty. Measured around 1 cm. I noted grade II chondromalacia lateral compartment without tears. There was some thick reactive synovitis anteriorly. I performed a partial lateral meniscectomy getting down to stable meniscal tissue. I performed a partial synovectomy decompressing the reactive synovitis. The residual meniscus was stable. There was good decompression of the synovitis. The scope was in guided back into the suprapatellar compartment. I introduced a motorized shaver and debrided some piecemeal fragments of meniscus I encountered. I performed a partial synovectomy decompressing the thick reactive synovitis. The shaver was now removed. There was good decomp ression of the synovitis. I now took 1 more look around the entire knee, no residual debris. Instruments were now removed from the joint. The joint was infiltrated with .25% Marcaine. Steri-Strips were applied to the portal sites. Sterile dressings were applied. The patient was placed into a LIBERTAD hose. No tourniquet was utilized. The patient was awakened, transferred to a bed and taken to recovery stable satisfactory condition.
[2023-07-29 10:36] VITALS: TEMP 97
[2023-07-29 10:37] LABS: Glucose,Whole Blood 201 mg/dL (70-110)
[2023-07-29 11:09] VITALS: RESP 16
[2023-07-29 12:13] LABS: Glucose,Whole Blood 174 mg/dL (70-110)
[2023-07-29 12:18] VITALS: BP 135/69; PULSE 58
== END 2023-07-29 12:39 | disposition home or self-care (01) ==
LOC: OR 08:07
PROVIDERS: ATTEND Orthopaedic Surgery
DX: S83.232A Complex tear of medial meniscus, current injury, left knee, initial encounter (principal); S83.272A Complex tear of lateral meniscus, current injury, left knee, initial encounter; M65.162 Other infective (teno)synovitis, left knee; M22.42 Chondromalacia patellae, left knee; M23.42 Loose body in knee, left knee; I25.10 Atherosclerotic heart disease of native coronary artery without angina pectoris; I10 Essential (primary) hypertension; E78.5 Hyperlipidemia, unspecified; E11.9 Type 2 diabetes mellitus without complications; Z79.84 Long term (current) use of oral hypoglycemic drugs; Z88.8 Allergy status to other drugs, medicaments and biological substances; Z79.899 Other long term (current) drug therapy; Z79.82 Long term (current) use of aspirin; Z79.02 Long term (current) use of antithrombotics/antiplatelets; Z79.85 Long-term (current) use of injectable non-insulin antidiabetic drugs; X58.XXXA Exposure to other specified factors, initial encounter
CPT/HCPCS: 29880; 29879; J2250; J0690; J2405; J2001; J3010; J1170; J1885; J2704; J0665

== ENCOUNTER → 2023-11-26 | Outpatient (CLI) | payer MEDICARE, OTHER ==
[2023-11-26 16:08] LABS: African American GFR (CKD) >90 (>60 ml/min/1.73 sqM); Blood Urea Nitrogen 28 mg/dL (9-20); Non-African American GFR(CKD) 80 (>60 ml/min/1.73 sqM)
--- NOTE | 2023-12-07 09:11 | CT ---
EXAMINATION TYPE: CT cervical spine wo/w con DATE OF EXAM: 11/26/2023 COMPARISON: 01/14/2020 HISTORY: Chronic leg, lower and neck pain x [address] DLP: 4726.4 mGycm CONTRAST: Performed with IV Contrast, patient injected with 100 ml mL of Isovue 300. CT of the cervical spine is performed in the axial plane at 2 mm thick sections. Reconstructed image s in the coronal, and sagittal plane are reviewed on the computer. No acute fractures are evident. Vertebral body alignment is normal. There is disc space narrowing C3-4 C6-7. Vertebral body heights are preserved. Posterior spinal ligament calcification is present extending from C3 to posterior C2. No significant spinal canal stenosis is present. Some endplate spurring is present C3-4 with mild anterior thecal sa c compression. Uncovertebral joint hypertrophy is moderate right and severe left foraminal stenosis C3-4. Mild uncov ertebral joint hypertrophy is present C5-6. Anterior vertebral body spurring is noted throughout the cervical spine greatest at C5-6. No suspicious enhancement is evident. Note is made of dense calcifications at the carotid artery bifu rcations. Consider additional evaluation with carotid ultrasound. Some stenosis is suspected claria bibiana. IMPRESSION: 1. Multilevel degenerative changes. Uncovertebral joint hypertrophy is some foraminal narrowing C3- 4 and C5-6 bilaterally. Degenerative disc changes are greatest at C3-4 and C6-7. 2. Carotid artery calcifications at the bifurcations. Ultrasound to evaluate for stenosis is recommen ded.
--- NOTE | 2023-12-07 09:17 | CT ---
EXAMINATION TYPE: CT lumbar spine wo/w con DATE OF EXAM: 11/26/2023 COMPARISON: None HISTORY: Chronic leg, lower and neck pain x [address] DLP: 4726.4 mGycm CONTRAST: CT scan of the lumbar is performed with IV Contrast, patient injected with mL of Isovue 300. TECHNIQUE: CT of the lumbar spine is performed on a spiral scan at 3 mm thick sections. Reconstructed images are performed in the coronal and sagittal planes. FINDINGS: T12-L1: No focal disc herniation or significant disc bulge is evident. No spinal canal stenosis or neural foraminal stenosis is present. L1-L2: Mild endplate calcification is present with mild anterior thecal sac flattening. No AP spinal canal stenosis present. Neural foramen are patent. L2-L3: Disc bulge is present with anterior thecal sac flattening. Facet hypertrophy is present greate r on the left. No spinal canal stenosis present. There is severe left and moderate right foraminal na rrowing. L3-L4: Facet hypertrophy with ligamentum flavum laxity is present. Posterior ligament calcification i s present. Endplate spurring is present with mild disc bulge. These are contributing to spinal canal stenosis. Severe bilateral foraminal narrowing is present L4-L5: Mild posterior longitudinal ligament calcification is present with mild anterior thecal sac co mpression. Facet hypertrophy is present. Severe bilateral foraminal stenosis present greater on the r ight. L5-S1: No focal disc herniation or significant disc bulge is evident. No spinal canal stenosis or n eural foraminal stenosis is present Vertebral alignment appears normal. IMPRESSION: 1. Severe foraminal stenosis present bilaterally L4-5 and L3-4 and left L2-3. 2. Facet hypertrophy and ligamentum flavum laxity and residual disc bulge L3-4 with spinal canal sten osis.
== END | disposition home or self-care (01) ==
LOC: RADCTMAIN 14:33
PROVIDERS: ATTEND Physical Medicine & Rehabilitation Pain Medicine
DX: M47.817 Spondylosis without myelopathy or radiculopathy, lumbosacral region (principal); M51.17 Intervertebral disc disorders with radiculopathy, lumbosacral region; M96.1 Postlaminectomy syndrome, not elsewhere classified; M50.20 Other cervical disc displacement, unspecified cervical region; M48.061 Spinal stenosis, lumbar region without neurogenic claudication; T85.122A Displacement of implanted electronic neurostimulator of spinal cord electrode (lead), initial encounter; R42 Dizziness and giddiness; R20.2 Paresthesia of skin; I70.90 Unspecified atherosclerosis
CPT/HCPCS: 82565; 84520; 72127; 72133; 36415; Q9967

== ENCOUNTER 2024-01-05 08:42 | Emergency (ER) | payer MEDICARE ==
[2024-01-05] MEDS ORDERED: PANTOPRAZOLE 40 MG/10 ML VIAL ONE (10:04)
[2024-01-05] MEDS ORDERED: ONDANSETRON 4 MG/2 ML VIAL ONE (10:04)
[2024-01-05] MEDS ORDERED: HYDROmorphone 0.5 MG/0.5 ML SYRINGE ONE (10:04)
[2024-01-05] MEDS ORDERED: SODIUM CHLORIDE 0.9% 1,000 ML BAG ONE (10:23)
[2024-01-05] MEDS ORDERED: MAGNESIUM SULFATE-D5W PMX 100 ML IVPB ONE (12:34)
--- NOTE | 2024-01-26 13:45 | CT ---
Patient: Beto Montes Ordering Physician: Unknown, Unknown ID: [id number] Phone, Pager: Ani ne: N/A Pager: N/A : 1950 Age/Gender: 73Y, M Primary Location: N/A Procedure: ABD/PEL W/ Stud y Date: 01/05/2024 11:18:18 AM EXAMINATION TYPE: CT abdomen pelvis wo/w con DATE OF EXAM: 01/05/2024 COMPARISON: No comparison available on downtime PACS. INDICATION: Abdominal pain diarrhea DLP: 1219.7 mGycm, Automated exposure control for dose reduction was used. CONTRAST: 100 mL of Isovue 300. Study performed without Oral Contrast TECHNIQUE: Axial images were obtained from above the diaphragm to the pubic rami in the axial plane a t 5 mm thick sections. Reconstructed images are reviewed on the computer in the coronal plane. FINDINGS: Limited CT sections are obtained the lung bases. The lung bases are clear. CT ABDOMEN: Liver: Normal Spleen: Normal Pancreas: Normal Adrenal glands: The adrenal glands are normal. Gallbladder: Normal Kidneys: No masses are evident. No hydronephrosis is present. No cysts are present. Delayed images were obtained through the kidneys, which remain unremarkable. Aorta: Vascular calcification is within the aorta. Mild fusiform prominence may be present with the distal abdominal aorta measuring 2.6 cm. Inferior vena cava: Normal. CT PELVIS: There are bilateral inguinal hernias. This contains mesenteric fat on the left. On the rig ht this contains nondilated nonobstructed loops of colon. Loops of bowel within the abdomen and pelvis are normal. There are loops of bowel which are incom pletely distended or lack oral contrast limiting their evaluation. No suspicious acute bowel changes radiographically apparent. No dilated small bowel loops evident. No significant cortical retention. Appendix: Not identified. No dilated tubular structure or inflammatory changes evident. Urinary bladder: Normal. Genitourinary structures: Prostate is prominent. Correlate with PSA. Osseous structures: No suspicious lytic or sclerotic lesions. Electronic device overlies the left but tocks region stimulator leads extend towards the thoracic region. IMPRESSION: 1. No suspicious acute bowel abnormality. 2. Right inguinal hernia with nonobstructed loop of colon
== END 2024-01-05 14:26 | disposition home or self-care (01) ==
LOC: EC 08:42
DX: E83.42 Hypomagnesemia (principal)
CPT/HCPCS: 74177; 93005; 96361; 96374; 96375; 99284

== ENCOUNTER 2024-09-14 12:57 | Inpatient (IN) | payer MEDICARE, OTHER ==
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
[2024-09-14 15:13] LABS: Basophils # (A) 0.06 10*3/uL (0.00-0.10); Basophils % (A) 0.4 %; Eosinophils # (A) 0.19 10*3/uL (0.04-0.35); Eosinophils % (A) 1.2 %; HCT 38.2 % (39.6-50.0); HGB 12.7 g/dL (13.0-17.0); Lymphocytes # (A) 2.45 10*3/uL (0.90-5.00); Lymphocytes % (A) 15.9 %; MCH 28.5 pg (27.0-32.0); MCHC 33.2 g/dL (32.0-37.0); MCV 85.8 fL (80.0-97.0); Mean Platelet Volume 10.4 fL (9.5-12.2); Monocytes # (A) 2.08 10*3/uL (0.20-1.00); Monocytes % (A) 13.5 %; Neutrophils # (A) 10.56 10*3/uL (1.80-7.70); Neutrophils % (A) 68.6 %; Platelet Count 221 10*3/uL (140-440); RBC 4.45 10*6/uL (4.40-5.60); RDW 12.8 % (11.5-14.5)
--- NOTE | 2024-09-14 15:26 | XR ---
EXAMINATION TYPE: XR wrist complete LT DATE OF EXAM: 09/14/2024 2:49 PM COMPARISON: None CLINICAL INDICATION: Male, 74 years old with history of pain; PHH, pain, lifting strain a few days ag o. TECHNIQUE: 4 views FINDINGS: There is large cystic change at the ulnar proximal aspect of the lunate bone with possible fragmentat ion. The changes are localized to this region with the remainder of the lunate bone appearing fairly normal. There is some synovial and TFC calcification noted. Neutral ulnar variance. Moderate degenera tive change triscaphe joint. No acute fracture, subluxation, dislocation otherwise seen. IMPRESSION: 1. Prominent bony changes along the ulnar aspect of the lunate bone. Query any chronic symptoms that would suggest ulnar impaction syndrome. 2. The possibility of erosion such as in the setting of CPPD arthropathy is also considered given the TFC and synovial calcification. 3. Moderate OA at the triscaphe joint. 4. Otherwise, no acute osseous abnormality seen. [facility], , 09/14/2024 3:23 PM
[2024-09-14 15:33] LABS: ALT 24 U/L (4-49); AST 28 U/L (17-59); African American GFR (CKD) >90 (>60 ml/min/1.73 sqM); Albumin 4.5 g/dL (3.5-5.0); Alkaline Phosphatase 93 U/L (38-126); Anion Gap 12 mmol/L; Blood Urea Nitrogen 14 mg/dL (9-20); C Reactive Protein 3.7 mg/dL (<1.0); Calcium 10.5 mg/dL (8.4-10.2); Carbon Dioxide 26 mmol/L (22-30); Chloride 100 mmol/L (98-107); Glucose 138 mg/dL (74-99); Non-African American GFR(CKD) 86 (>60 ml/min/1.73 sqM); Potassium 4.6 mmol/L (3.5-5.1); Sodium 138 mmol/L (137-145); Total Bilirubin 0.8 mg/dL (0.2-1.3); Total Protein 7.7 g/dL (6.3-8.2)
[2024-09-14] MEDS: DEXAMETHASONE SOD PHOSPHATE 10 MG/ML 1 ML VIAL IVP STA (16:36)
[2024-09-14] MEDS ORDERED: VANCOMYCIN IV PER PHARMACY 1 EACH MISC MISCELLANE PRN (17:54)
[2024-09-14] MEDS ORDERED: NALOXONE 0.4 MG/ML 1 ML VIAL IV PRN (17:59)
[2024-09-14] MEDS: SODIUM CHLORIDE 0.9% 1,000 ML IV SCH (18:13)
[2024-09-14] MEDS: LEVOFLOXACIN 500MG-D5W PMX 500 MG in DEXTROSE/WATER 1 100ML.BAG IVPB STA (18:13)
[2024-09-14 19:46] LABS: Erythrocyte Sedimentation Rate 38 mm/Hr (0-20)
[2024-09-14] MEDS: VANCOMYCIN 1,750 MG in SODIUM CHLORIDE 0.9% 500 ML 500 ML IVPB ONE (20:49)
[2024-09-14] MEDS: KETOROLAC 15 MG/ML 1 ML VIAL IVP PRN (22:02)
[2024-09-15] MEDS: CLOPIDOGREL 75 MG TAB PO SCH (02:37)
[2024-09-15] MEDS: HYDROmorphone 2 MG TAB PO SCH (02:37)
[2024-09-15] MEDS ORDERED: ALBUTEROL NEBULIZED 2.5 MG/3 ML INHALATION PRN (06:37)
[2024-09-15] MEDS ORDERED: Linaclotide [Linzess] 145 MCG Capsule PO PRN (06:37)
[2024-09-15 07:00] LABS: Glucose,Whole Blood 189 mg/dL (70-110)
[2024-09-15 07:04] LABS: African American GFR (CKD) >90 (>60 ml/min/1.73 sqM); Non-African American GFR(CKD) 84 (>60 ml/min/1.73 sqM)
[2024-09-15] MEDS: metFORMIN 500 MG TAB PO SCH (09:10)
[2024-09-15] MEDS: GABAPENTIN 300 MG CAP PO SCH (09:10)
[2024-09-15] MEDS: LOSARTAN 50 MG TAB PO SCH (09:11)
[2024-09-15] MEDS: METOPROLOL SUCCINATE (ER) 50 MG TAB.ER.24H PO SCH (09:11)
[2024-09-15] MEDS: LIDOCAINE 4% PATCH TOPICAL SCH (09:11)
[2024-09-15] MEDS: VANCOMYCIN 1,750 MG in SODIUM CHLORIDE 0.9% 500 ML 500 ML IVPB SCH (09:15)
[2024-09-15 11:57] LABS: Glucose,Whole Blood 203 mg/dL (70-110)
[2024-09-15] MEDS ORDERED: DEXTROSE 50% SYRINGE 50 ML IVP PRN ×2 (15:28)
--- NOTE | 2024-09-15 16:47 | P.HPIM ---
History of Present Illness This is a pleasant 74 years old male with past medical history of multiple medical problems as below Presents because of pain in his left wrist which started 2 days ago. Patient does not recall trauma or injury but he was doing heavy duty and carrying lingo cleaner for his car. About 2 days ago. The pain is felt like sharp severe enough to bring him to the hospital with no precipitating factors but relieved by ice. No fever no falling. He denies any other chest pain or dyspnea. No GI/ symptoms no neurological complaint He denies smoke alcohol or illicit drugs. He is hemodynamically stable He had low-grade fever on admission 104 Blood pressure elevated 183/78 Labs showing leukocytosis of 15.4 and hemoglobin 12.7. Rest of labs including CBC, BMP LFT were unremarkable ESR is elevated mildly at 38 Wrist x-ray showing prominent bony features with moderate erosions but no fracture Review of Systems Review of systems CONSTITUTIONAL: No fever, no malaise, no fatigue. HEENT: No recent visual problems or hearing problems. Denied any sore throat. CARDIOVASCULAR: No orthopnea, PND, no palpitations, no syncope. PULMONARY: No shortness of breath, no cough, no hemoptysis. GASTROINTESTINAL: No diarrhea, no nausea, no vomiting, no abdominal pain. Normoactive bowel sounds. NEUROLOGICAL: No headaches, no weakness, no numbness. HEMATOLOGICAL: Denies any bleeding or petechiae. GENITOURINARY: Denies any burning micturition, frequency, or urgency. MUSCULOSKELETAL/RHEUMATOLOGICAL: As above ENDOCRINE: Denies any polyuria or polydipsia. Past Medical History Past Medical History: Cancer, CVA/TIA, Diabetes Mellitus, Hyperlipidemia, Hypertension, Myocardial Infarction ([place]), Osteoarthritis (OA), Skin Disorder Additional Past Medical History / Comment(s): sinus infections; Pt has itchiness from medications, recent cardiac testing for procedure. hx skin cancer on eyebrow, treated. TIA x2 no residuals. hx of vertigo 05/2021. [place] x 7 Last Myocardial Infarction Date:: 2017 History of Any Multi-Drug Resistant Organisms: None Reported Past Surgical History: Appendectomy, Back Surgery, Heart Catheterization With Stent, Orthopedic Surgery, Tonsillectomy Additional Past Surgical History / Comment(s): Pain stimulator in lower back, electrodes in upper back. Left knee repair ACL and meniscus tear, L rotator cuff x2, trigger point injections in shoulders Past Anesthesia/Blood Transfusion Reactions: No Reported Reaction Date of Last Stent Placement:: 2017 Past Psychological History: No Psychological Hx Reported Smoking Status: Former smoker Past Alcohol Use History: None Reported Additional Past Alcohol Use History / Comment(s): Quit when he was 55 yrs old. 2ppd Past Drug Use History: None Reported - Past Family History Mother Family Medical History: Cancer, Congestive Heart Failure (CHF), Diabetes Mellitus, Hyperlipidemia, Hypertension Additional Family Medical History / Comment(s): breast cancer Father Family Medical History: Coronary Artery Disease (CAD), Hyperlipidemia, Hypertension Additional Family Medical History / Comment(s): pacemaker and AICD, ALS Medications and Allergies Home Medications Medication Instructions Recorded Confirmed Type Aspirin [Adult Low Dose Aspirin EC] 81 mg PO HS 01/14/20 09/14/24 History Atorvastatin [Lipitor] 80 mg PO HS 01/14/20 09/14/24 History Cetirizine HCl [Zyrtec] 10 mg PO HS 01/14/20 09/14/24 History Clopidogrel [Plavix] 75 mg PO HS 01/14/20 09/14/24 History Lidocaine 5% Patch [Lidoderm] 1 patch TOPICAL DAILY 01/14/20 09/14/24 History Metoprolol Succinate [Toprol XL] 50 mg PO DAILY 01/14/20 09/14/24 History Tamsulosin [Flomax] 0.4 mg PO HS 01/14/20 09/14/24 History metFORMIN HCL [Glucophage] 1,000 mg PO BID-W/MEALS 01/14/20 09/14/24 History Losartan Potassium 100 mg PO DAILY 07/22/23 09/14/24 History Albuterol Inhaler [Ventolin Hfa 2 puff INHALATION RT-Q4H PRN 09/14/24 09/14/24 History Inhaler] Ergocalciferol (Vitamin D2) 1,250 mcg PO Q14D 09/14/24 09/14/24 History [Drisdol (50,000 Iu)] Gabapentin [Neurontin] 900 mg PO TID 09/14/24 09/14/24 History HYDROmorphone [Dilaudid] 4 mg PO BID 09/14/24 09/14/24 History Insulin Degludec [Tresiba 80 units SQ HS 09/14/24 09/14/24 History Flextouch U-200 Pen] Linaclotide [Linzess] 145 mcg PO DAILY PRN 09/14/24 09/14/24 History fentaNYL 50MCG/HR PATCH [Duragesic 1 patch TRANSDERM Q72H 09/14/24 09/14/24 History 50MCG/HR] predniSONE [Deltasone] 40 mg PO DAILY #10 tab 09/14/24 Rx sitaGLIPtin [Januvia] 100 mg PO DIRECTED 09/14/24 09/14/24 History Tirzepatide [Mounjaro] 2.5 mg SQ WE 09/15/24 09/15/24 History Allergies Allergy/AdvReac Type Severity Reaction Status Date / Time SAMINA Inhibitors Allergy Rash/Hives Verified 09/14/24 19:07 acetaminophen [From Percocet] Allergy Itching Verified 09/14/24 19:07 ARB-Angiotensin Receptor Allergy Rash/Hives Verified 09/14/24 19:07 Antagonist bacitracin Allergy Rash/Hives Verified 09/14/24 19:07 [From Neosporin ([id number])] cephalexin [From Keflex] Allergy Rash/Hives Verified 09/14/24 19:07 insulin glargine Allergy Swelling Verified 09/14/24 19:07 [From Lantus U-100 Insulin] neomycin Allergy Rash/Hives Verified 09/14/24 19:07 [From Neosporin ([id number])] oxycodone [From Percocet] Allergy Itching Verified 09/14/24 19:07 Penicillins Allergy Rash/Hives Verified 09/14/24 19:07 polymyxin B Allergy Rash/Hives Verified 09/14/24 19:07 [From Neosporin ([id number])] Physical Exam Vitals: Vital Signs Temp Pulse Pulse Resp BP BP Pulse Ox 09/15/24 13:02 97.9 F 71 18 167/80 97 09/15/24 12:11 98.0 F 69 16 169/74 96 09/15/24 07:52 79 18 09/15/24 07:39 97.9 F 79 18 183/78 97 09/15/24 07:00 97.5 F L 78 16 185/75 96 09/15/24 01:16 98 F 85 16 183/81 94 L 09/14/24 21:35 98 F 94 16 189/71 95 09/14/24 20:00 16 09/14/24 19:30 99.2 F 89 17 178/75 95 09/14/24 18:08 100 F H 98 18 166/62 98 09/14/24 16:38 100.4 F H 93 18 189/82 96 Intake and Output 09/14/24 09/15/24 09/15/24 22:59 06:59 14:59 Intake Total 480 Output Total 600 Balance -600 480 Intake: Oral 480 Output: Urine 600 Other: Voiding Method Toilet Toilet Urinal Weight 108.862 kg GENERAL: The patient is alert and oriented x3, not in any acute distress. Well developed, well nourished. HEENT: Pupils are round and equally reacting to light. EOMI. No scleral icterus. No conjunctival pallor. Normocephalic, atraumatic. No pharyngeal erythema. No thyromegaly. CARDIOVASCULAR: S1 and S2 present. No murmurs, rubs, or gallops. PULMONARY: Chest is clear to auscultation, no wheezing , no crackles. ABDOMEN: Soft, nontender, nondistended, normoactive bowel sounds. No palpable organomegaly. MUSCULOSKELETAL: No joint swelling or deformity. -EXTREMITIES: No cyanosis, clubbing, or pedal edema. Left wrist swelling with dressing in place NEUROLOGICAL: Gross neurological examination did not reveal any focal deficits. SKIN: No rashes. no petechiae. Results CBC & Chem 7: 09/14/24 15:00 09/15/24 05:59 Labs: Abnormal Lab Results - Last 24 Hours (Table) 09/14/24 09/14/24 09/15/24 Range/Units 15:00 15:00 06:59 WBC 15.40 H (4.50-10.00) 10*3/uL Hgb 12.7 L (13.0-17.0) g/dL Hct 38.2 L (39.6-50.0) % Immature Gran # 0.06 H (0.00-0.04) 10*3/uL Neutrophils # 10.56 H (1.80-7.70) 10*3/uL Monocytes # 2.08 H (0.20-1.00) 10*3/uL ESR 38 H (0-20) mm/Hr Glucose 138 H (74-99) mg/dL POC Glucose (mg/dL) 189 H (70-110) mg/dL Calcium 10.5 H (8.4-10.2) mg/dL C-Reactive Protein 3.7 H (<1.0) mg/dL 09/15/24 Range/Units 11:56 WBC (4.50-10.00) 10*3/uL Hgb (13.0-17.0) g/dL Hct (39.6-50.0) % Immature Gran # (0.00-0.04) 10*3/uL Neutrophils # (1.80-7.70) 10*3/uL Monocytes # (0.20-1.00) 10*3/uL ESR (0-20) mm/Hr Glucose (74-99) mg/dL POC Glucose (mg/dL) 203 H (70-110) mg/dL Calcium (8.4-10.2) mg/dL C-Reactive Protein (<1.0) mg/dL Thrombosis Risk Factor Assmnt - Choose All That Apply Any of the Below Risk Factors Present?: Yes Each Factor Represents 1 point: Obesity (BMI >25) Other Risk Factors: Yes Each Risk Factor Represents 2 Points: Age 61-74 years Other congenital or acquired thrombophilia - If yes, enter type in comment: No Thrombosis Risk Factor Assessment Total Risk Factor Score: 3 Thrombosis Risk Factor Assessment Level: Moderate Risk Assessment and Plan Assessment: Acute arthritis of the left wrist, rule out septic arthritis Sepsis with fever and leukocytosis Hypertension urgency Diabetes mellitus Hypertension Hyperlipidemia History of osteoarthritis CVA/TIA Coronary artery disease status post stent Plan: Continue with the current antibiotics IV vancomycin started by orthopedic team orthopedic team consult Consult infectious disease team Continue with IV fluid Pain management Labs and medication were reviewed.. Continue same treatment. Continue with symptomatic treatment. Resume home medication. Monitor lytes and vitals. DVT and GI prophylaxis. Further recommendations depends on the clinical course of the patient DVT prophylaxis: Subcutaneous heparin GI Prophylaxis: Pepcid PT/OT: Pending Prognosis is guarded
[2024-09-15 16:55] LABS: Glucose,Whole Blood 190 mg/dL (70-110)
[2024-09-15] MEDS: INSULIN LISPRO (HumaLOG) 100 UNIT/ML 10 mL VL SQ SCH (17:51)
[2024-09-15 20:19] LABS: Glucose,Whole Blood 181 mg/dL (70-110)
[2024-09-15] MEDS: TAMSULOSIN 0.4 MG CAP.ER.24H PO SCH (21:10)
[2024-09-15] MEDS: ATORVASTATIN 80 MG TAB PO SCH (21:10)
[2024-09-15] MEDS: LORATADINE 10 MG TAB PO SCH (21:10)
[2024-09-15] MEDS: MELATONIN 5 MG TABLET PO SCH (21:10)
[2024-09-15] MEDS: ASPIRIN 81 MG PO SCH (21:12)
[2024-09-15] MEDS: IBUPROFEN 400 MG TAB PO PRN (21:20)
--- NOTE | 2024-09-15 22:49 | P.CONS ---
History of Present Illness - Reason for Consult Consult date: 09/15/24 Possible septic arthritis Requesting physician: Jb E Sheet - Chief Complaint Left wrist pain and swelling x days - History of Present Illness Patient is a 74-year-old male with a past medical history significant for CVA/TIA, Diabetes Mellitus, Hyperlipidemia, Hypertension, Myocardial Infarction ([place]), Osteoarthritis ([place]), Skin Disorder patient presenting to the hospital for evaluation of left wrist pain and swelling in this patient symptom. Was going on for about 5 days before presentation to the hospital patient denies any history of any trauma was complaining of pain to be sharp severe in intensity without any radiation did have associated swelling but no significant redness and did not have any skin breakdown on presentation to the hospital patient did have a fever of 100.4 F patient did have a heart rate of 94 patient was not hypotensive or hypoxic no need for supplemental oxygen patient did have a white count of 15.40 with a left shift creatinine 0.87 electrolytes has been normal CRP is 3.7 patient did have a x-ray of the wrist prominent bony changes along the ulnar aspect of the lunate wound possibility of erosion such as CPPD arthropathy also considered patient was started on vancomycin concerning for septic arthritis prompting this consultation Review of Systems Positive point and negatives has been mentioned in the HPI, complete review of systems was performed and all other systems are negative Past Medical History Past Medical History: Cancer, CVA/TIA, Diabetes Mellitus, Hyperlipidemia, Hypertension, Myocardial Infarction ([place]), Osteoarthritis ([place]), Skin Disorder Additional Past Medical History / Comment(s): sinus infections; Pt has itchiness from medications, recent cardiac testing for procedure. hx skin cancer on eyebrow, treated. TIA x2 no residuals. hx of vertigo 05/2021. [place] x 7 Last Myocardial Infarction Date:: 2017 History of Any Multi-Drug Resistant Organisms: None Reported Past Surgical History: Appendectomy, Back Surgery, Heart Catheterization With Stent, Orthopedic Surgery, Tonsillectomy Additional Past Surgical History / Comment(s): Pain stimulator in lower back, electrodes in upper back. Left knee repair ACL and meniscus tear, L rotator cuff x2, trigger point injections in shoulders Past Anesthesia/Blood Transfusion Reactions: No Reported Reaction Date of Last Stent Placement:: 2017 Past Psychological History: No Psychological Hx Reported Smoking Status: Former smoker Past Alcohol Use History: None Reported Additional Past Alcohol Use History / Comment(s): Quit when he was 55 yrs old. 2ppd Past Drug Use History: None Reported - Past Family History Mother Family Medical History: Cancer, Congestive Heart Failure (CHF), Diabetes Mellitus, Hyperlipidemia, Hypertension Additional Family Medical History / Comment(s): breast cancer Father Family Medical History: Coronary Artery Disease (CAD), Hyperlipidemia, H ypertension Additional Family Medical History / Comment(s): pacemaker and AICD, ALS Medications and Allergies Home Medications Medication Instructions Recorded Confirmed Type Aspirin [Adult Low Dose Aspirin EC] 81 mg PO HS 01/14/20 09/14/24 History Atorvastatin [Lipitor] 80 mg PO HS 01/14/20 09/14/24 History Cetirizine HCl [Zyrtec] 10 mg PO HS 01/14/20 09/14/24 History Clopidogrel [Plavix] 75 mg PO HS 01/14/20 09/14/24 History Lidocaine 5% Patch [Lidoderm] 1 patch TOPICAL DAILY 01/14/20 09/14/24 History Metoprolol Succinate [Toprol XL] 50 mg PO DAILY 01/14/20 09/14/24 History Tamsulosin [Flomax] 0.4 mg PO HS 01/14/20 09/14/24 History metFORMIN HCL [Glucophage] 1,000 mg PO BID-W/MEALS 01/14/20 09/14/24 History Losartan Potassium 100 mg PO DAILY 07/22/23 09/14/24 History Albuterol Inhaler [Ventolin Hfa 2 puff INHALATION RT-Q4H PRN 09/14/24 09/14/24 History Inhaler] Ergocalciferol (Vitamin D2) 1,250 mcg PO Q14D 09/14/24 09/14/24 History [Drisdol (50,000 Iu)] Gabapentin [Neurontin] 900 mg PO TID 09/14/24 09/14/24 History HYDROmorphone [Dilaudid] 4 mg PO BID 09/14/24 09/14/24 History Insulin Degludec [Tresiba 80 units SQ HS 09/14/24 09/14/24 History Flextouch U-200 Pen] Linaclotide [Linzess] 145 mcg PO DAILY PRN 09/14/24 09/14/24 History fentaNYL 50MCG/HR PATCH [Duragesic 1 patch TRANSDERM Q72H 09/14/24 09/14/24 History 50MCG/HR] predniSONE [Deltasone] 40 mg PO DAILY #10 tab 09/14/24 Rx sitaGLIPtin [Januvia] 100 mg PO DIRECTED 09/14/24 09/14/24 History Tirzepatide [Mounjaro] 2.5 mg SQ WE 09/15/24 09/15/24 History Allergies Allergy/AdvReac Type Severity Reaction Status Date / Time SAMINA Inhibitors Allergy Rash/Hives Verified 09/14/24 19:07 acetaminophen [From Percocet] Allergy Itching Verified 09/14/24 19:07 ARB-Angiotensin Receptor Allergy Rash/Hives Verified 09/14/24 19:07 Antagonist bacitracin Allergy Rash/Hives Verified 09/14/24 19:07 [From Neosporin ([id number])] cephalexin [From Keflex] Allergy Rash/Hives Verified 09/14/24 19:07 insulin glargine Allergy Swelling Verified 09/14/24 19:07 [From Lantus U-100 Insulin] neomycin Allergy Rash/Hives Verified 09/14/24 19:07 [From Neosporin ([id number])] oxycodone [From Percocet] Allergy Itching Verified 09/14/24 19:07 Penicillins Allergy Rash/Hives Verified 09/14/24 19:07 polymyxin B Allergy Rash/Hives Verified 09/14/24 19:07 [From Neosporin ([id number])] Physical Exam Vitals: Vital Signs Temp Pulse Pulse Resp BP BP Pulse Ox 09/15/24 13:02 97.9 F 71 18 167/80 97 09/15/24 12:11 98.0 F 69 16 169/74 96 09/15/24 07:52 79 18 09/15/24 07:39 97.9 F 79 18 183/78 97 09/15/24 07:00 97.5 F L 78 16 185/75 96 09/15/24 01:16 98 F 85 16 183/81 94 L 09/14/24 21:35 98 F 94 16 189/71 95 09/14/24 20:00 16 09/14/24 19:30 99.2 F 89 17 178/75 95 09/14/24 18:08 100 F H 98 18 166/62 98 09/14/24 16:38 100.4 F H 93 18 189/82 96 Intake and Output 09/15/24 09/15/24 09/15/24 06:59 14:59 22:59 Intake Total 480 1080 Output Total 600 Balance -828 160 7080 Intake: Oral 480 1080 Output: Urine 600 Other: Voiding Method Toilet # Voids 5 GENERAL DESCRIPTION: Elderly male up in bed, no distress. No tachypnea or accessory muscle of respiration use. HEENT: Shows Pallor , no scleral icterus. Oral mucous membrane is dry. NECK: Trachea central, no thyromegaly. LUNGS: Unlabored breathing. Clear to auscultation anteriorly. No wheeze or crackle. HEART: S1, S2, regular rate and rhythm. No loud murmur ABDOMEN: Soft, no tenderness , guarding or rigidity, no organomegaly EXTREMITIES: Left wrist did have some swelling and tenderness no significant r edness skin breakdown SKIN: No rash, no masses palpable. NEUROLOGICAL: The patient is awake, alert, oriented x3, mood and affect normal. Results CBC & Chem 7: 09/14/24 15:00 09/15/24 05:59 Labs: Abnormal Lab Results - Last 24 Hours (Table) 09/14/24 09/15/24 09/15/24 Range/Units 15:00 06:59 11:56 ESR 38 H (0-20) mm/Hr POC Glucose (mg/dL) 189 H 203 H (70-110) mg/dL Assessment and Plan (1) SIRS (systemic inflammatory response syndrome) Current Visit: Yes Status: Acute Code(s): R65.10 - SIRS OF NON-INFECTIOUS ORIGIN W/O ACUTE ORGAN DYSFUNCTION SNOMED Code(s): 816771061 (2) Septic arthritis Current Visit: Yes Status: Acute Code(s): M00.9 - PYOGENIC ARTHRITIS, UNSPECIFIED SNOMED Code(s): 253404560 (3) Allergy to multiple antibiotics Current Visit: Yes Status: Acute Code(s): Z88.1 - ALLERGY STATUS TO OTHER ANTIBIOTIC AGENTS SNOMED Code(s): 467005070 Plan: 1patient presented to hospital with left wrist pain and swelling in this patient who did have fever and elevated white count meeting criteria for SIRS with a question of septic versus inflammatory arthritis patient mention signi ficant improvement over the last 24 hours that we will go against septic arthritis but not entirely excluded 2-patient with multiple antibiotic ALLERGIES that would limit the number of antibiotic safe to use 3-await Ortho evaluation for possible aspiration and fluid should be sent for culture as well as crystals 4-we will check a sed rate uric acid level 5-we will empirically treat the patient with vancomycin while waiting for the workup to be completed We will follow on clinical condition and cultures to further adjust medication if needed Thank you for this consultation we will follow the patient along with you Dictation was produced using [employer] dictation software. please excuse any gramm atical, word or spelling errors. Time with Patient: Greater than 30
[2024-09-16] MEDS: INSULIN DEGLUDEC 200 UNIT/ML SQ SCH ×4 (04:52→08:30)
[2024-09-16] MEDS: HYDROmorphone 0.5 MG/0.5 ML SYRINGE IVP STA (06:58)
--- NOTE | 2024-09-16 07:12 | P.CNOR ---
History of Present Illness - HPI History of present illness: The patient is a very pleasant 74-year-old male with multiple medical problems who is presently admitted to internal medicine with left wrist pain and swellin g. 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 It progressively worsened over the last couple days. The patient presented to the emergency department and was admitted under the care of internal medicine. The patient has a previous relationship with Dr. Rendon who has seen the patient in the office and performed surgery on him 1 year ago. Initially advanced orthopedics was consulted but refused the consultation as they were not on-call. I evaluated the patient this morning. The patient has swelling and pain in the left wrist. He does report a history of gout in the big toe many years ago. He also reports a previous episode of pain and swelling in the elbow. An attempt was made at aspiration but was not tolerated well and was unable to remove fluid. Past Medical History Past Medical History: Cancer, CVA/TIA, Diabetes Mellitus, Hyperlipidemia, Hypertension, Myocardial Infarction (PR), Osteoarthritis (OA), Skin Disorder Additional Past Medical History / Comment(s): sinus infections; Pt has itchiness from medications, recent cardiac testing for procedure. hx skin cancer on eyebrow, treated. TIA x2 no residuals. hx of vertigo 05/2021. PR x 7 Last Myocardial Infarction Date:: 2017 History of Any Multi-Drug Resistant Organisms: None Reported Past Surgical History: Appendectomy, Back Surgery, Heart Catheterization With Stent, Orthopedic Surgery, Tonsillectomy Additional Past Surgical History / Comment(s): Pain stimulator in lower back, electrodes in upper back. Left knee repair ACL and meniscus tear, L rotator cuff x2, trigger point injections in shoulders Past Anesthesia/Blood Transfusion Reactions: No Reported Reaction Date of Last Stent Placement:: 2017 Past Psychological History: No Psychological Hx Reported Smoking Status: Former smoker Past Alcohol Use History: None Reported Additional Past Alcohol Use History / Comment(s): Quit when he was 55 yrs old. 2ppd Past Drug Use History: None Reported - Past Family History Mother Family Medical History: Cancer, Congestive Heart Failure (CHF), Diabetes Mellitus, Hyperlipidemia, Hypertension Additional Family Medical History / Comment(s): breast cancer Father Family Medical History: Coronary Artery Disease (CAD), Hyperlipidemia, Hypertension Additional Family Medical History / Comment(s): pacemaker and AICD, ALS Medications and Allergies Home Medications Medication Instructions Recorded Confirmed Type Aspirin [Adult Low Dose Aspirin EC] 81 mg PO HS 01/14/20 09/14/24 History Atorvastatin [Lipitor] 80 mg PO HS 01/14/20 09/14/24 History Cetirizine HCl [Zyrtec] 10 mg PO HS 01/14/20 09/14/24 History Clopidogrel [Plavix] 75 mg PO HS 01/14/20 09/14/24 History Lidocaine 5% Patch [Lidoderm] 1 patch TOPICAL DAILY 01/14/20 09/14/24 History Metoprolol Succinate [Toprol XL] 50 mg PO DAILY 01/14/20 09/14/24 History RX: metFORMIN HCL [Glucophage] 1,000 mg PO BID-W/MEALS 01/14/20 09/14/24 History Tamsulosin [Flomax] 0.4 mg PO HS 01/14/20 09/14/24 History RX: Losartan Potassium 100 mg PO DAILY 07/22/23 09/14/24 History Albuterol Inhaler [Ventolin Hfa 2 puff INHALATION RT-Q4H PRN 09/14/24 09/14/24 History Inhaler] Ergocalciferol (Vitamin D2) 1,250 mcg PO Q14D 09/14/24 09/14/24 History [Drisdol (50,000 Iu)] Gabapentin [Neurontin] 900 mg PO TID 09/14/24 09/14/24 History HYDROmorphone [Dilaudid] 4 mg PO BID 09/14/24 09/14/24 History Insulin Degludec [Tresiba 80 units SQ HS 09/14/24 09/14/24 History Flextouch U-200 Pen] Linaclotide [Linzess] 145 mcg PO DAILY PRN 09/14/24 09/14/24 History RX: predniSONE [Deltasone] 40 mg PO DAILY #10 tab 09/14/24 Rx fentaNYL 50MCG/HR PATCH [Duragesic 1 patch TRANSDERM Q72H 09/14/24 09/14/24 History 50MCG/HR] sitaGLIPtin [Januvia] 100 mg PO DIRECTED 09/14/24 09/14/24 History Tirzepatide [Mounjaro] 2.5 mg SQ WE 09/15/24 09/15/24 History Allergies Allergy/AdvReac Type Severity Reaction Status Date / Time SAMINA Inhibitors Allergy Rash/Hives Verified 09/14/24 19:07 acetaminophen [From Percocet] Allergy Itching Verified 09/14/24 19:07 ARB-Angiotensin Receptor Allergy Rash/Hives Verified 09/14/24 19:07 Antagonist bacitracin Allergy Rash/Hives Verified 09/14/24 19:07 [From Neosporin ([id number])] cephalexin [From Keflex] Allergy Rash/Hives Verified 09/14/24 19:07 insulin glargine Allergy Swelling Verified 09/14/24 19:07 [From Lantus U-100 Insulin] neomycin Allergy Rash/Hives Verified 09/14/24 19:07 [From Neosporin ([id number])] oxycodone [From Percocet] Allergy Itching Verified 09/14/24 19:07 Penicillins Allergy Rash/Hives Verified 09/14/24 19:07 polymyxin B Allergy Rash/Hives Verified 09/14/24 19:07 [From Neosporin ([id number])] Physical Examination The patient is resting comfortably in bed. A focused exam of the left hand and wrist was conducted. On inspection there is mild swelling and slight erythema. There is some warmth to touch. There is no obvious fluctuance. There is tenderness diffusely throughout the wrist and hand. There are no overlying skin lesions. He has pain with passive range of motion of the wrist and fingers. The hand is warm and well-perfused. Results X-rays of the left wrist and hand show no obvious fractures. There are diffuse degenerative changes but no sign of deep infection. There is chondrocalcinosis visualized. - Labs Labs: Abnormal Lab Results - Last 24 Hours (Table) 09/15/24 09/15/24 09/15/24 Range/Units 11:56 16:54 20:17 POC Glucose (mg/dL) 203 H 190 H 181 H (70-110) mg/dL Microbiology - Last 24 Hours (Table) 09/14/24 18:14 Blood Culture - Preliminary Blood H & H 09/14/24 Range/Units 15:00 Hgb 12.7 L (13.0-17.0) g/dL Hct 38.2 L (39.6-50.0) % Result Diagrams: 04/30/25 15:00 09/15/24 05:59 Assessment and Plan Assessment: Left wrist pain and swelling, etiology possible crystalline arthropathy versus acute exacerbation of arthritis versus deep space infection Plan: The patient has acute onset left wrist pain and swelling. We discussed potential causes including exacerbation of arthritis, crystalline arthropathy, or deep space infection. An attempt was made at aspiration of the left wrist this morning but no fluid was aspirated and the patient did not tolerate this well. I will order an MRI of the left wrist to rule out deep space infection. We will continue to follow. Procedure: Verbal consent for a left wrist aspiration was obtained. The skin over the dorsal wrist just distal to Ben's tubercle was prepped with alcohol and chlorhexidine. Using sterile technique an 18-gauge needle was inserted into this soft spot distal to Ben's tubercle. No fluid was aspirated. Of note the patient did not tolerate this very well. The needle withdrawn and a Band- Aid was applied.
[2024-09-16 07:17] LABS: Glucose,Whole Blood 194 mg/dL (70-110)
[2024-09-16] MEDS ORDERED: INSULIN DEGLUDEC 200 UNIT/ML SQ SCH (09:00)
[2024-09-16 10:14] LABS: Basophils # (A) 0.06 X 10*3/uL (0.00-0.10); Basophils % (A) 0.6 %; Eosinophils % (A) 2.8 %; HCT 32.8 % (39.6-50.0); Lymphocytes # (A) 2.23 X 10*3/uL (0.90-5.00); Lymphocytes % (A) 20.9 %; MCHC 30.5 g/dL (32.0-37.0); MCV 88.6 FL (80.0-97.0); Mean Platelet Volume 11.6 FL (9.5-12.2); Monocytes % (A) 11.2 %; NRBC Per 100 WBC 0 X 10*3/uL (0.00-0.01); Neutrophils # (A) 6.83 X 10*3/uL (1.80-7.70); Platelet Count 173 X 10*3/uL (140-440); RDW 12.5 % (11.5-14.5); WBC 10.67 X 10*3/uL (4.50-10.00)
[2024-09-16 10:28] LABS: BUN/Creat Ratio 31.11 Ratio (12.00-20.00); Calcium 9.2 mg/dL (8.7-10.3); Carbon Dioxide 20.8 mmol/L (21.6-31.8); Chloride 109 mmol/L (96-109); Glucose 162 mg/dL (70-110); Potassium 4.4 mmol/L (3.5-5.5); Sodium 140 mmol/L (135-145)
--- NOTE | 2024-09-16 10:54 | P.PN ---
Subjective Progress Note Date: 09/16/24 Principal diagnosis: Reason for follow-up is possible left wrist septic arthritis/cellulitis Patient is a 74-year-old male with a past medical history significant for CVA/TIA, Diabetes Mellitus, Hyperlipidemia, Hypertension, Myocardial Infarction ([place]), Osteoarthritis (OA), Skin Disorder patient presenting to the hospital for evaluation of left wrist pain and swelling patient did have a fever concern for possible septic arthritis. On today's evaluation that is 09/16/2024, Patient did have resolution of his fever and is afebrile this morning, patient is currently on room air and denies having any shortness of breath, the patient denies any chest pain or cough, the patient denies any nausea vomiting did not have any abdominal pain and no diarrhea, pain to the left wrist after attempted aspiration by orthopedics. Patient white count is down to 10.67 creatinine 0.9 blood cultures are pending Objective - Vital Signs Vital signs: Vital Signs Temp 97.4 F L 09/16/24 07:52 Pulse 63 09/16/24 08:40 Resp 18 09/16/24 08:00 BP 168/77 09/16/24 08:40 Pulse Ox 95 09/16/24 07:52 FiO2 Intake & Output 09/15/24 09/16/24 09/16/24 18:59 06:59 18:59 Intake Total 1560 Output Total 400 Balance 1560 -400 Intake: Oral 1560 Output: Urine 400 Other: Voiding Method Toilet Toilet # Voids 5 - Exam GENERAL DESCRIPTION: An elderly male up in bed in no distress RESPIRATORY SYSTEM: Unlabored breathing , decreased breath sounds at bases HEART: S1 S2 regular rate and rhythm , ABDOMEN: Soft , no tenderness EXTREMITIES: Left wrist did have some swelling no significant redness or drainage - Labs CBC & Chem 7: 09/16/24 06:17 09/16/24 06:17 Labs: Abnormal Lab Results - Last 24 Hours (Table) 09/15/24 09/15/24 09/15/24 Range/Units 11:56 16:54 20:17 WBC (4.50-10.00) X 10*3/uL RBC (4.40-5.60) X 10*6/uL Hgb (13.0-17.0) g/dL Hct (39.6-50.0) % MCHC (32.0-37.0) g/dL Immature Gran # (0.00-0.04) X 10*3/uL Monocytes # (0.20-1.00) X 10*3/uL Carbon Dioxide (21.6-31.8) mmol/L BUN (9.0-27.0) mg/dL BUN/Creatinine Ratio (12.00-20.00) Ratio Glucose (70-110) mg/dL POC Glucose (mg/dL) 203 H 190 H 181 H (70-110) mg/dL Hemoglobin A1c (<=6.0) % 09/16/24 09/16/24 09/16/24 Range/Units 06:17 06:17 06:17 WBC 10.67 H (4.50-10.00) X 10*3/uL RBC 3.70 L (4.40-5.60) X 10*6/uL Hgb 10.0 L (13.0-17.0) g/dL Hct 32.8 L (39.6-50.0) % MCHC 30.5 L (32.0-37.0) g/dL Immature Gran # 0.05 H (0.00-0.04) X 10*3/uL Monocytes # 1.20 H (0.20-1.00) X 10*3/uL Carbon Dioxide 20.8 L (21.6-31.8) mmol/L BUN 28.0 H (9.0-27.0) mg/dL BUN/Creatinine Ratio 31.11 H (12.00-20.00) Ratio Glucose 162 H (70-110) mg/dL POC Glucose (mg/dL) (70-110) mg/dL Hemoglobin A1c 9.3 H (<=6.0) % 09/16/24 Range/Units 07:16 WBC (4.50-10.00) X 10*3/uL RBC (4.40-5.60) X 10*6/uL Hgb (13.0-17.0) g/dL Hct (39.6-50.0) % MCHC (32.0-37.0) g/dL Immature Gran # (0.00-0.04) X 10*3/uL Monocytes # (0.20-1.00) X 10*3/uL Carbon Dioxide (21.6-31.8) mmol/L BUN (9.0-27.0) mg/dL BUN/Creatinine Ratio (12.00-20.00) Ratio Glucose (70-110) mg/dL POC Glucose (mg/dL) 194 H (70-110) mg/dL Hemoglobin A1c (<=6.0) % Microbiology - Last 24 Hours (Table) 09/14/24 18:14 Blood Culture - Preliminary Blood Assessment and Plan (1) SIRS (systemic inflammatory response syndrome) Current Visit: Yes Status: Acute Code(s): R65.10 - SIRS OF NON-INFECTIOUS ORIGIN W/O ACUTE ORGAN DYSFUNCTION SNOMED Code(s): 794991763 (2) Septic arthritis Current Visit: Yes Status: Acute Code(s): M00.9 - PYOGENIC ARTHRITIS, UNSPECIFIED SNOMED Code(s): 393819444 (3) Allergy to multiple antibiotics Current Visit: Yes Status: Acute Code(s): Z88.1 - ALLERGY STATUS TO OTHER ANTIBIOTIC AGENTS SNOMED Code(s): 881140673 Plan: 1patient presented to hospital with left wrist pain and swelling in this patie nt who did have fever and elevated white count meeting criteria for SIRS with a question of septic versus inflammatory arthritis patient mention significant improvement over the last 24 hours that we will go against septic arthritis but not entirely excluded 2-patient with multiple antibiotic ALLERGIES that would limit the number of antibiotic safe to use 3-patient has been evaluated by orthopedics fluid could not be aspirated CT has been ordered results will be followed 4 patient did have resolution of his fever white count normalized we will continue vancomycin while waiting for the workup to be completed Multiple questions and concerns were answered Dictation was produced using [employer] dictation software. please excuse any grammatical, word or spelling errors. Time with Patient: Less than 30
[2024-09-16 12:17] LABS: Glucose,Whole Blood 139 mg/dL (70-110)
--- NOTE | 2024-09-16 13:16 | CT ---
EXAMINATION TYPE: CT wrist LT wo/w con DATE OF EXAM: 09/16/2024 12:28 PM COMPARISON: Radiograph 09/14/2024. CLINICAL INDICATION: Male, 74 years old with history of rule out deep space infection; PHH, rule out deep space infection, swelling and pain TECHNIQUE: CT scanning of the left wrist before and after administration of IV contrast. Coronal and sagittal reconstructions performed. 3-D reconstructions generated on a dedicated workstation. Contrast used:100 ml mL of Isovue 300 with IV Contrast, CT DLP: 494.4 mGycm, Automated exposure control for dose reduction was used. FINDINGS: No significant tenosynovial fluid or soft tissue air is identified. Subchondral cystic change, subchondral bony irregularity is again noted. Prominently along the ulnar aspect of the lunate bone. Corresponding cystic change at the head of the ulna. Additional scattered cystic change within the midcarpal compartment including the hamate, triquetrum, distal pole of the s caphoid, and the radial styloid process. Moderate degenerative change triscaphe joint and mild at the first CMC joint. Faint scattered TFC and synovial calcifications noted. There is suggestion of a small wrist joint eff usion. No acute fracture, subluxation, dislocation is seen. No peripherally enhancing fluid collection is identified. IMPRESSION: 1. No tenosynovial fluid or soft tissue air to clearly indicate any aggressive deep soft tissue infec tion. 2. Prominent bony irregularity along the ulnar aspect of the lunate bone with additional scattered crowe bchondral cysts at the wrists and scattered within the mid carpal compartment. 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 3. Moderate triscaphe joint OA and mild at the first CMC joint. [facility], Workstation: [id number], 09/16/2024 1:14 PM
[2024-09-16 17:29] LABS: Glucose,Whole Blood 123 mg/dL (70-110)
[2024-09-16 20:13] LABS: Glucose,Whole Blood 140 mg/dL (70-110)
[2024-09-16 22:33] LABS: Glucose,Whole Blood 106 mg/dL (70-110)
[2024-09-17 00:54] LABS: Glucose,Whole Blood 114 mg/dL (70-110)
--- NOTE | 2024-09-17 03:01 | P.PN ---
Subjective This is a pleasant 74 years old male with past medical history of multiple medical problems as below Presents because of pain in his left wrist which started 2 days ago. 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 About 2 days ago. The pain is felt like sharp severe enough to bring him to the hospital with no precipitating factors but relieved by ice. No fever no falling. He denies any other chest pain or dyspnea. No GI/ symptoms no neurological complaint He denies smoke alcohol or illicit drugs. He is hemodynamically stable He had low-grade fever on admission 104 Blood pressure elevated 183/78 Labs showing leukocytosis of 15.4 and hemoglobin 12.7. Rest of labs including CBC, BMP LFT were unremarkable ESR is elevated mildly at 38 Wrist x-ray showing prominent bony features with moderate erosions but no fracture / Patient underwent unsuccessful tapping of his left wrist He still has some pain at the area He remains on antibiotics differential diagnosis is gout MRI is recommended by orthopedic team however patient cannot have MRI done because of his back pain stimulator Objective - Vital Signs Vital signs: Vital Signs Temp 97.9 F 09/16/24 13:33 Pulse 68 09/16/24 13:33 Resp 18 09/16/24 13:33 BP 171/79 09/16/24 13:33 Pulse Ox 98 09/16/24 13:33 FiO2 Intake & Output 09/15/24 09/16/24 09/16/24 18:59 06:59 18:59 Intake Total 1560 Output Total 400 Balance 1560 -400 Intake: Oral 1560 Output: Urine 400 Other: Voiding Method Toilet Toilet # Voids 5 - Exam GENERAL: The patient is alert and oriented x3, not in any acute distress. Well developed, well nourished. HEENT: Pupils are round and equally reacting to light. EOMI. No scleral icterus. No conjunctival pallor. Normocephalic, atraumatic. No pharyngeal erythema. No thyromegaly. CARDIOVASCULAR: S1 and S2 present. No murmurs, rubs, or gallops. PULMONARY: Chest is clear to auscultation, no wheezing , no crackles. ABDOMEN: Soft, nontender, nondistended, normoactive bowel sounds. No palpable organomegaly. MUSCULOSKELETAL: No joint swelling or deformity. -EXTREMITIES: No cyanosis, clubbing, or pedal edema. Left wrist there is mildly swollen tender and warm with no significant erythema NEUROLOGICAL: Gross neurological examination did not reveal any focal deficits. SKIN: No rashes. no petechiae. - Labs CBC & Chem 7: 09/16/24 06:17 09/16/24 06:17 Labs: Abnormal Lab Results - Last 24 Hours (Table) 09/15/24 09/15/24 09/16/24 Range/Units 16:54 20:17 06:17 WBC (4.50-10.00) X 10*3/uL RBC (4.40-5.60) X 10*6/uL Hgb (13.0-17.0) g/dL Hct (39.6-50.0) % MCHC (32.0-37.0) g/dL Immature Gran # (0.00-0.04) X 10*3/uL Monocytes # (0.20-1.00) X 10*3/uL Carbon Dioxide (21.6-31.8) mmol/L BUN (9.0-27.0) mg/dL BUN/Creatinine Ratio (12.00-20.00) Ratio Glucose (70-110) mg/dL POC Glucose (mg/dL) 190 H 181 H (70-110) mg/dL Hemoglobin A1c 9.3 H (<=6.0) % 09/16/24 09/16/24 09/16/24 Range/Units 06:17 06:17 07:16 WBC 10.67 H (4.50-10.00) X 10*3/uL RBC 3.70 L (4.40-5.60) X 10*6/uL Hgb 10.0 L (13.0-17.0) g/dL Hct 32.8 L (39.6-50.0) % MCHC 30.5 L (32.0-37.0) g/dL Immature Gran # 0.05 H (0.00-0.04) X 10*3/uL Monocytes # 1.20 H (0.20-1.00) X 10*3/uL Carbon Dioxide 20.8 L (21.6-31.8) mmol/L BUN 28.0 H (9.0-27.0) mg/dL BUN/Creatinine Ratio 31.11 H (12.00-20.00) Ratio Glucose 162 H (70-110) mg/dL POC Glucose (mg/dL) 194 H (70-110) mg/dL Hemoglobin A1c (<=6.0) % 09/16/24 Range/Units 12:15 WBC (4.50-10.00) X 10*3/uL RBC (4.40-5.60) X 10*6/uL Hgb (13.0-17.0) g/dL Hct (39.6-50.0) % MCHC (32.0-37.0) g/dL Immature Gran # (0.00-0.04) X 10*3/uL Monocytes # (0.20-1.00) X 10*3/uL Carbon Dioxide (21.6-31.8) mmol/L BUN (9.0-27.0) mg/dL BUN/Creatinine Ratio (12.00-20.00) Ratio Glucose (70-110) mg/dL POC Glucose (mg/dL) 139 H (70-110) mg/dL Hemoglobin A1c (<=6.0) % Microbiology - Last 24 Hours (Table) 09/14/24 18:14 Blood Culture - Preliminary Blood Assessment and Plan Assessment: Acute arthritis of the left wrist, rule out septic arthritis Sepsis with fever and leukocytosis Hypertension urgency Diabetes mellitus Hypertension Hyperlipidemia History of osteoarthritis CVA/TIA Coronary artery disease status post stent Plan: Continue with the current antibiotics IV vancomycin started by orthopedic team orthopedic team consult Consult infectious disease team Continue with IV fluid Pain management Labs and medication were reviewed.. Continue same treatment. Continue with symptomatic treatment. Resume home medication. Monitor lytes and vitals. DVT and GI prophylaxis. Further recommendations depends on the clinical course of the patient DVT prophylaxis: Subcutaneous heparin GI Prophylaxis: Pepcid PT/OT: Pending Prognosis is guarded
[2024-09-17 07:54] LABS: Glucose,Whole Blood 112 mg/dL (70-110)
[2024-09-17 08:13] LABS: African American GFR (CKD) >90 (>60 ml/min/1.73 sqM); Anion Gap 7 mmol/L; Blood Urea Nitrogen 25 mg/dL (9-20); Calcium 9.3 mg/dL (8.4-10.2); Carbon Dioxide 23 mmol/L (22-30); Chloride 110 mmol/L (98-107); Glucose 113 mg/dL (74-99); Non-African American GFR(CKD) 87 (>60 ml/min/1.73 sqM); Potassium 4.3 mmol/L (3.5-5.1); Sodium 140 mmol/L (137-145)
--- NOTE | 2024-09-17 08:19 | P.PN ---
Subjective Patient was seen at bedside this morning. He is accompanied by his . The patient states that the pain in his left wrist is improved. He is starting to get some pain in his left elbow. Objective - Vital Signs Vital signs: Vital Signs Temp 98.1 F 09/17/24 00:57 Pulse 69 09/17/24 00:57 Resp 16 09/17/24 00:57 BP 175/86 09/17/24 00:57 Pulse Ox 95 09/17/24 00:57 FiO2 Intake & Output 09/16/24 09/17/24 09/17/24 18:59 06:59 18:59 Intake Total 1096 Balance 1096 Intake: Oral 1096 Other: Voiding Method Toilet # Voids 3 - Exam The patient is sitting in bed eating his breakfast. He is alert and able to answer questions. Left upper extremity: A focused exam of the left wrist and elbow was conducted. On inspection of the left wrist there is mild swelling and minimal erythema. There is no warmth to touch. There is no fluctuance. He is able to move his fingers without pain. There is minimal pain with passive range of motion of the wrist. On inspection of the elbow there is slight swelling and warmth to touch but no liza erythema. He has some pain with passive range of motion of the elbow. His forearm and arm are soft. Motor and sensory function are intact throughout the left upper extremity. - Labs CBC & Chem 7: 09/16/24 06:17 09/17/24 07:42 Labs: Abnormal Lab Results - Last 24 Hours (Table) 09/16/24 09/16/24 09/16/24 Range/Units 06:17 06:17 06:17 WBC 10.67 H (4.50-10.00) X 10*3/uL RBC 3.70 L (4.40-5.60) X 10*6/uL Hgb 10.0 L (13.0-17.0) g/dL Hct 32.8 L (39.6-50.0) % MCHC 30.5 L (32.0-37.0) g/dL Immature Gran # 0.05 H (0.00-0.04) X 10*3/uL Monocytes # 1.20 H (0.20-1.00) X 10*3/uL Chloride (98-107) mmol/L Carbon Dioxide 20.8 L (21.6-31.8) mmol/L BUN 28.0 H (9.0-27.0) mg/dL BUN/Creatinine Ratio 31.11 H (12.00-20.00) Ratio Glucose 162 H (70-110) mg/dL POC Glucose (mg/dL) (70-110) mg/dL Hemoglobin A1c 9.3 H (<=6.0) % 09/16/24 09/16/24 09/16/24 Range/Units 12:15 17:05 20:12 WBC (4.50-10.00) X 10*3/uL RBC (4.40-5.60) X 10*6/uL Hgb (13.0-17.0) g/dL Hct (39.6-50.0) % MCHC (32.0-37.0) g/dL Immature Gran # (0.00-0.04) X 10*3/uL Monocytes # (0.20-1.00) X 10*3/uL Chloride (98-107) mmol/L Carbon Dioxide (21.6-31.8) mmol/L BUN (9.0-27.0) mg/dL BUN/Creatinine Ratio (12.00-20.00) Ratio Glucose (70-110) mg/dL POC Glucose (mg/dL) 139 H 123 H 140 H (70-110) mg/dL Hemoglobin A1c (<=6.0) % 09/17/24 09/17/24 09/17/24 Range/Units 00:52 07:42 07:53 WBC (4.50-10.00) X 10*3/uL RBC (4.40-5.60) X 10*6/uL Hgb (13.0-17.0) g/dL Hct (39.6-50.0) % MCHC (32.0-37.0) g/dL Immature Gran # (0.00-0.04) X 10*3/uL Monocytes # (0.20-1.00) X 10*3/uL Chloride 110 H (98-107) mmol/L Carbon Dioxide (21.6-31.8) mmol/L BUN 25 H (9.0-27.0) mg/dL BUN/Creatinine Ratio (12.00-20.00) Ratio Glucose 113 H (70-110) mg/dL POC Glucose (mg/dL) 114 H 112 H (70-110) mg/dL Hemoglobin A1c (<=6.0) % Microbiology - Last 24 Hours (Table) 09/14/24 18:14 Blood Culture - Preliminary Blood Assessment and Plan Assessment: Left elbow and wrist pain/swelling, 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 Low clinical suspicion for septic arthritis Plan: The patient is improved in his left wrist today. An attempted aspiration was made yesterday but no fluid was withdrawn. A CT scan was obtained which showed no sign of deep space infection. The patient is complaining today of left elbow pain, but his exam is relatively benign. I think that his clinical picture is most consistent with crystalline arthropathy. We also discussed the possibility of an arthritic flare. I have a low suspicion of septic arthritis. The primary service could consider an NSAID or steroid. If the patient's elbow pain worsens I can attempt an aspiration, but given my low suspicion for infection and the patient's intolerance of having aspirations at bedside we will hold off. We will follow peripherally. Please call with questions or concerns.
[2024-09-17] MEDS: methylPREDNISolone SOD SUCCI 125 MG/2 ML VIAL IV STA (09:11)
[2024-09-17] MEDS: VANCOMYCIN TROUGH DUE 1 EACH MISC MISCELLANE ONE (09:13)
[2024-09-17 12:26] LABS: Glucose,Whole Blood 171 mg/dL (70-110)
[2024-09-17 16:58] LABS: Glucose,Whole Blood 229 mg/dL (70-110)
[2024-09-17 20:30] LABS: Glucose,Whole Blood 232 mg/dL (70-110)
[2024-09-17] MEDS: hydrALAZINE HCL 20 MG/ML 1 ML VIAL IVP STA (20:50)
--- NOTE | 2024-09-18 00:09 | P.PN ---
Subjective This is a pleasant 74 years old male with past medical history of multiple medical problems as below Presents because of pain in his left wrist which started 2 days ago. Patient does not recall trauma or injury but he was doing heavy duty and carrying pan cleaner for his car. About 2 days ago. The pain is felt like sharp severe enough to bring him to the hospital with no precipitating factors but relieved by ice. No fever no falling. He denies any other chest pain or dyspnea. No GI/ symptoms no neurological complaint He denies smoke alcohol or illicit drugs. He is hemodynamically stable He had low-grade fever on admission 104 Blood pressure elevated 183/78 Labs showing leukocytosis of 15.4 and hemoglobin 12.7. Rest of labs including CBC, BMP LFT were unremarkable ESR is elevated mildly at 38 Wrist x-ray showing prominent bony features with moderate erosions but no fracture 09/16 Patient underwent unsuccessful tapping of his left wrist He still has some pain at the area He remains on antibiotics differential diagnosis is gout MRI is recommended by orthopedic team however patient cannot have MRI done because of his back pain stimulator 09/17 Patient states that his left wrist is better but he developed some pain in the elbow although there is no evidence of left elbow swelling or signs of inflammation There is no deep infection per CT per orthopedic team. They recommended NSAIDs versus steroids, 1 times of IV Solu-Medrol provided for the patient with close follow-up as an tomorrow. Patient blood pressure is elevated therefore recommend to lower rate of IV fluid normal saline 75 down to 40 mL/h. Also patient on losartan 100 mg and metoprolol 50 mg increased to 200 mg. Remains on IV vancomycin for possible septic element Objective - Vital Signs Vital signs: Vital Signs Temp 97.9 F 09/17/24 13:04 Pulse 75 09/17/24 13:04 Resp 17 09/17/24 13:04 BP 182/90 09/17/24 13:04 Pulse Ox 95 09/17/24 13:04 FiO2 Intake & Output 09/17/24 09/17/24 09/18/24 06:59 18:59 06:59 Intake Total 1320 Balance 1320 Intake: Intake, IV Titration 900 Amount Sodium Chloride 0.9% 1, 900 000 ml @ 75 mls/hr IV . [id number] NEEL Rx#:[id number] Oral 420 Other: # Voids 3 - Exam GENERAL: The patient is alert and oriented x3, not in any acute distress. Well developed, well nourished. HEENT: Pupils are round and equally reacting to light. EOMI. No scleral icterus. No conjunctival pallor. Normocephalic, atraumatic. No pharyngeal erythema. No thyromegaly. CARDIOVASCULAR: S1 and S2 present. No murmurs, rubs, or gallops. PULMONARY: Chest is clear to auscultation, no wheezing , no crackles. ABDOMEN: Soft, nontender, nondistended, normoactive bowel sounds. No palpable organomegaly. MUSCULOSKELETAL: No joint swelling or deformity. -EXTREMITIES: No cyanosis, clubbing, or pedal edema. Left wrist there is mildly swollen tender and warm with no significant erythema NEUROLOGICAL: Gross neurological examination did not reveal any focal deficits. SKIN: No rashes. no petechiae. - Labs CBC & Chem 7: 09/16/24 06:17 09/17/24 07:42 Labs: Abnormal Lab Results - Last 24 Hours (Table) 09/16/24 09/17/24 09/17/24 Range/Units 20:12 00:52 07:42 Chloride 110 H (98-107) mmol/L BUN 25 H (9-20) mg/dL Glucose 113 H (74-99) mg/dL POC Glucose (mg/dL) 140 H 114 H (70-110) mg/dL 09/17/24 09/17/24 09/17/24 Range/Units 07:53 12:24 16:56 Chloride (98-107) mmol/L BUN (9-20) mg/dL Glucose (74-99) mg/dL POC Glucose (mg/dL) 112 H 171 H 229 H (70-110) mg/dL Microbiology - Last 24 Hours (Table) 09/14/24 18:14 Blood Culture - Preliminary Blood Assessment and Plan Assessment: Acute arthritis of the left wrist, rule out septic arthritis Sepsis with fever and leukocytosis Hypertension urgency Diabetes mellitus Hypertension Hyperlipidemia History of osteoarthritis CVA/TIA Coronary artery disease status post stent Plan: Continue with the current antibiotics IV vancomycin orthopedic team consult Consult infectious disease team Continue with IV fluid at a lower rate Pain management S/p steroid Labs and medication were reviewed.. Continue same treatment. Continue with symptomatic treatment. Resume home medication. Monitor lytes and vitals. DVT and GI prophylaxis. Further recommendations depends on the clinical course of the patient DVT prophylaxis: Subcutaneous heparin GI Prophylaxis: Pepcid PT/OT: Pending Prognosis is guarded
[2024-09-18] MEDS: SODIUM CHLORIDE 0.9% 1,000 ML IV SCH (00:20)
[2024-09-18 07:10] LABS: Glucose,Whole Blood 219 mg/dL (70-110)
[2024-09-18] MEDS: hydrALAZINE HCL 20 MG/ML 1 ML VIAL IM STA (07:47)
[2024-09-18] MEDS: METOPROLOL SUCCINATE (ER) 100 MG TAB.ER.24H PO SCH (08:33)
[2024-09-18 12:05] LABS: Glucose,Whole Blood 120 mg/dL (70-110)
[2024-09-18] MEDS: COLCHICINE 0.6 MG EACH PO SCH (13:31)
[2024-09-18 17:08] LABS: Glucose,Whole Blood 91 mg/dL (70-110)
--- NOTE | 2024-09-18 17:17 | P.PN ---
Subjective Progress Note Date: 09/18/24 Principal diagnosis: Reason for follow-up is possible left wrist septic arthritis/cellulitis Patient is a 74-year-old male with a past medical history significant for CVA/TIA, Diabetes Mellitus, Hyperlipidemia, Hypertension, Myocardial Infarction ([place]), Osteoarthritis ([place]), Skin Disorder patient presenting to the hospital for evaluation of left wrist pain and swelling patient did have a fever concern for possible septic arthritis. On today's evaluation that is 09/18/2024, Patient is afebrile this morning patient denies having any chest pain shortness of breath or cough, the patient is currently on room air, patient denies any abdominal pain no diarrhea no nausea no vomiting, the patient pain to the left wrist has decreased in intensity. No new lab has been obtained today Objective - Vital Signs Vital signs: Vital Signs Temp 97.9 F 09/18/24 12:27 Pulse 70 09/18/24 12:27 Resp 20 09/18/24 12:27 BP 168/75 09/18/24 12:27 Pulse Ox 97 09/18/24 12:27 FiO2 Intake & Output 09/17/24 09/18/24 09/18/24 18:59 06:59 18:59 Intake Total 1320 Balance 1320 Intake: Intake, IV Titration 900 Amount Sodium Chloride 0.9% 1, 900 000 ml @ 75 mls/hr IV . [id number] NEEL Rx#:[id number] Oral 420 Other: Voiding Method Toilet # Voids 3 - Exam GENERAL DESCRIPTION: An elderly male up in bed in no distress RESPIRATORY SYSTEM: Unlabored breathing , decreased breath sounds at bases HEART: S1 S2 regular rate and rhythm , ABDOMEN: Soft , no tenderness EXTREMITIES: Left wrist did have some swelling no significant redness or drainage - Labs CBC & Chem 7: 09/16/24 06:17 09/17/24 07:42 Labs: Abnormal Lab Results - Last 24 Hours (Table) 09/17/24 09/18/24 09/18/24 Range/Units 20:28 07:08 12:03 POC Glucose (mg/dL) 232 H 219 H 120 H (70-110) mg/dL Microbiology - Last 24 Hours (Table) 09/14/24 18:14 Blood Culture - Preliminary Blood Assessment and Plan (1) SIRS (systemic inflammatory response syndrome) Current Visit: Yes Status: Acute Code(s): R65.10 - SIRS OF NON-INFECTIOUS ORIGIN W/O ACUTE ORGAN DYSFUNCTION SNOMED Code(s): 598257791 (2) Septic arthritis Current Visit: Yes Status: Acute Code(s): M00.9 - PYOGENIC ARTHRITIS, UNSPECIFIED SNOMED Code(s): 129016820 (3) Allergy to multiple antibiotics Current Visit: Yes Status: Acute Code(s): Z88.1 - ALLERGY STATUS TO OTHER ANTIBIOTIC AGENTS SNOMED Code(s): 863657092 Plan: 1patient presented to hospital with left wrist pain and swelling in this patient who did have fever and elevated white count meeting criteria for SIRS with a question of septic versus inflammatory arthritis patient mention significant improvement over the last 24 hours that we will go against septic arthritis but not entirely excluded 2-patient with multiple antibiotic ALLERGIES that would limit the number of antibiotic safe to use 3-patient has been evaluated by orthopedics fluid could not be aspirated CT of the wrist has been suggestive of possible CPPD arthropathy and no fluid 4 patient seem to have responded to the dose of Solu-Medrol and has been started on colchicine vancomycin has been discontinued will monitor closely off antibiotic Dictation was produced using [employer] dictation software. please excuse any grammatical, word or spelling errors. Time with Patient: Less than 30
--- NOTE | 2024-09-18 17:17 | P.PN ---
Subjective Progress Note Date: 09/17/24 Principal diagnosis: Reason for follow-up is possible left wrist septic arthritis/cellulitis Patient is a 74-year-old male with a past medical history significant for CVA/TIA, Diabetes Mellitus, Hyperlipidemia, Hypertension, Myocardial Infarction ([place]), Osteoarthritis (OA), Skin Disorder patient presenting to the hospital for evaluation of left wrist pain and swelling patient did have a fever concern for possible septic arthritis. On today's evaluation that is 09/17/2024, patient has been afebrile, patient is breathing comfortably and is currently on room air, patient denies having any chest pain and cough, patient denies nausea vomiting or diarrhea and no abdom inal pain so complaining of pain to the left wrist area but no worsening. Patient did have a creatinine 0.83 vancomycin trough is 19.1 blood culture has been negative,CT has been suggestive of possible CPPD arthropathy and no fluid. Objective - Vital Signs Vital signs: Vital Signs Temp 98.1 F 09/17/24 00:57 Pulse 69 09/17/24 00:57 Resp 16 09/17/24 00:57 BP 175/86 09/17/24 00:57 Pulse Ox 95 09/17/24 00:57 FiO2 Intake & Output 09/16/24 09/16/24 09/17/24 06:59 18:59 06:59 Intake Total 1096 Output Total 400 Balance -400 1096 Intake: Oral 1096 Output: Urine 400 Other: Voiding Method Toilet # Voids 3 - Exam GENERAL DESCRIPTION: An elderly male up in bed in no distress RESPIRATORY SYSTEM: Unlabored breathing , decreased breath sounds at bases HEART: S1 S2 regular rate and rhythm , ABDOMEN: Soft , no tenderness EXTREMITIES: Left wrist did have some swelling no significant redness or drainage - Labs CBC & Chem 7: 09/16/24 06:17 09/17/24 07:42 Labs: Abnormal Lab Results - Last 24 Hours (Table) 09/16/24 09/16/24 09/16/24 Range/Units 06:17 06:17 06:17 WBC 10.67 H (4.50-10.00) X 10*3/uL RBC 3.70 L (4.40-5.60) X 10*6/uL Hgb 10.0 L (13.0-17.0) g/dL Hct 32.8 L (39.6-50.0) % MCHC 30.5 L (32.0-37.0) g/dL Immature Gran # 0.05 H (0.00-0.04) X 10*3/uL Monocytes # 1.20 H (0.20-1.00) X 10*3/uL Carbon Dioxide 20.8 L (21.6-31.8) mmol/L BUN 28.0 H (9.0-27.0) mg/dL BUN/Creatinine Ratio 31.11 H (12.00-20.00) Ratio Glucose 162 H (70-110) mg/dL POC Glucose (mg/dL) (70-110) mg/dL Hemoglobin A1c 9.3 H (<=6.0) % 09/16/24 09/16/24 09/16/24 Range/Units 07:16 12:15 17:05 WBC (4.50-10.00) X 10*3/uL RBC (4.40-5.60) X 10*6/uL Hgb (13.0-17.0) g/dL Hct (39.6-50.0) % MCHC (32.0-37.0) g/dL Immature Gran # (0.00-0.04) X 10*3/uL Monocytes # (0.20-1.00) X 10*3/uL Carbon Dioxide (21.6-31.8) mmol/L BUN (9.0-27.0) mg/dL BUN/Creatinine Ratio (12.00-20.00) Ratio Glucose (70-110) mg/dL POC Glucose (mg/dL) 194 H 139 H 123 H (70-110) mg/dL Hemoglobin A1c (<=6.0) % 09/16/24 09/17/24 Range/Units 20:12 00:52 WBC (4.50-10.00) X 10*3/uL RBC (4.40-5.60) X 10*6/uL Hgb (13.0-17.0) g/dL Hct (39.6-50.0) % MCHC (32.0-37.0) g/dL Immature Gran # (0.00-0.04) X 10*3/uL Monocytes # (0.20-1.00) X 10*3/uL Carbon Dioxide (21.6-31.8) mmol/L BUN (9.0-27.0) mg/dL BUN/Creatinine Ratio (12.00-20.00) Ratio Glucose (70-110) mg/dL POC Glucose (mg/dL) 140 H 114 H (70-110) mg/dL Hemoglobin A1c (<=6.0) % Microbiology - Last 24 Hours (Table) 09/14/24 18:14 Blood Culture - Preliminary Blood Assessment and Plan (1) SIRS (systemic inflammatory response syndrome) Current Visit: Yes Status: Acute Code(s): R65.10 - SIRS OF NON-INFECTIOUS O RIGIN W/O ACUTE ORGAN DYSFUNCTION SNOMED Code(s): 731198539 (2) Septic arthritis Current Visit: Yes Status: Acute Code(s): M00.9 - PYOGENIC ARTHRITIS, UNSPECIFIED SNOMED Code(s): 005085449 (3) Allergy to multiple antibiotics Current Visit: Yes Status: Acute Code(s): Z88.1 - ALLERGY STATUS TO OTHER ANTIBIOTIC AGENTS SNOMED Code(s): 631870557 Plan: 1patient presented to hospital with left wrist pain and swelling in this patient who did have fever and elevated white count meeting criteria for SIRS with a question of septic versus inflammatory arthritis patient mention significant improvement over the last 24 hours that we will go against septic arthritis but not entirely excluded 2-patient with multiple antibiotic ALLERGIES that would limit the number of antibiotic safe to use 3-patient has been evaluated by orthopedics fluid could not be aspirated CT of the wrist has been suggestive of possible CPPD arthropathy and no fluid 4 patient will be given a dose of Solu-Medrol and recommend to discontinue vancomycin as not behaving as septic arthritis Dictation was produced using [employer] dictation software. please excuse any grammatical, word or spelling errors. Time with Patient: Less than 30
[2024-09-18 20:23] LABS: Glucose,Whole Blood 88 mg/dL (70-110)
[2024-09-18] MEDS: hydrALAZINE HCL 50 MG TAB PO SCH (22:20)
--- NOTE | 2024-09-18 23:27 | P.PN ---
Subjective This is a pleasant 74 years old male with past medical history of multiple medical problems as below Presents because of pain in his left wrist which started 2 days ago. Patient does not recall trauma or injury but he was doing heavy duty and carrying glass cleaner for his car. About 2 days ago. The pain is felt like sharp severe enough to bring him to the hospital with no precipitating factors but relieved by ice. No fever no falling. He denies any other chest pain or dyspnea. No GI/ symptoms no neurological complaint He denies smoke alcohol or illicit drugs. He is hemodynamically stable He had low-grade fever on admission 104 Blood pressure elevated 183/78 Labs showing leukocytosis of 15.4 and hemoglobin 12.7. Rest of labs including CBC, BMP LFT were unremarkable ESR is elevated mildly at 38 Wrist x-ray showing prominent bony features with moderate erosions but no fracture 09/16 Patient underwent unsuccessful tapping of his left wrist He still has some pain at the area He remains on antibiotics differential diagnosis is gout MRI is recommended by orthopedic team however patient cannot have MRI done because of his back pain stimulator 09/17 Patient states that his left wrist is better but he developed some pain in the elbow although there is no evidence of left elbow swelling or signs of inflammation There is no deep infection per CT per orthopedic team. They recommended NSAIDs versus steroids, 1 times of IV Solu-Medrol provided for the patient with close follow-up as an tomorrow. Patient blood pressure is elevated therefore recommend to lower rate of IV fluid normal saline 75 down to 40 mL/h. Also patient on losartan 100 mg and metoprolol 50 mg increased to 200 mg. Remains on IV vancomycin for possible septic element 09/18 Patient left wrist arthritis significantly improving slowly and gradually Patient has less pain and swelling in his left wrist and yesterday had some pain in the left elbow also improved. Patient received IV Solu-Medrol doses yesterday for his possible gouty arthritis. We will continue with colchicine x 3 days Vancomycin was held with close monitoring while off antibiotics Objective - Vital Signs Vital signs: Vital Signs Temp 97.9 F 09/18/24 12:27 Pulse 70 09/18/24 12:27 Resp 20 09/18/24 12:27 BP 168/75 09/18/24 12:27 Pulse Ox 97 09/18/24 12:27 FiO2 Intake & Output 09/17/24 09/18/24 09/18/24 18:59 06:59 18:59 Intake Total 1320 Balance 1320 Intake: Intake, IV Titration 900 Amount Sodium Chloride 0.9% 1, 900 000 ml @ 75 mls/hr IV . [id number] NEEL Rx#:[id number] Oral 420 Other: Voiding Method Toilet # Voids 3 - Exam GENERAL: The patient is alert and oriented x3, not in any acute distress. Well developed, well nourished. HEENT: Pupils are round and equally reacting to light. EOMI. No scleral icterus. No conjunctival pallor. Normocephalic, atraumatic. No pharyngeal erythema. No thyromegaly. CARDIOVASCULAR: S1 and S2 present. No murmurs, rubs, or gallops. PULMONARY: Chest is clear to auscultation, no wheezing , no crackles. ABDOMEN: Soft, nontender, nondistended, normoactive bowel sounds. No palpable organomegaly. MUSCULOSKELETAL: No joint swelling or deformity. -EXTREMITIES: No cyanosis, clubbing, or pedal edema. Left wrist there is mildly swollen tender and warm with no significant erythema NEUROLOGICAL: Gross neurological examination did not reveal any focal deficits. SKIN: No rashes. no petechiae. - Labs CBC & Chem 7: 09/16/24 06:17 09/17/24 07:42 Labs: Abnormal Lab Results - Last 24 Hours (Table) 09/17/24 09/17/24 09/18/24 Range/Units 16:56 20:28 07:08 POC Glucose (mg/dL) 229 H 232 H 219 H (70-110) mg/dL 09/18/24 Range/Units 12:03 POC Glucose (mg/dL) 120 H (70-110) mg/dL Microbiology - Last 24 Hours (Table) 09/14/24 18:14 Blood Culture - Preliminary Blood Assessment and Plan Assessment: Acute arthritis of the left wrist, rule out septic arthritis Sepsis with fever and leukocytosis Hypertension urgency Diabetes mellitus Hypertension Hyperlipidemia History of osteoarthritis CVA/TIA Coronary artery disease status post stent Plan: After vancomycin was held Start colchicine orthopedic team consult Consult infectious disease team Continue with IV fluid at a lower rate Pain management S/p steroid Labs and medication were reviewed.. Continue same treatment. Continue with symptomatic treatment. Resume home medication. Monitor lytes and vitals. DVT and GI prophylaxis. Further recommendations depends on the clinical course of the patient DVT prophylaxis: Subcutaneous heparin GI Prophylaxis: Pepcid PT/OT: Pending Prognosis is guarded
[2024-09-19 01:35] LABS: Glucose,Whole Blood 79 mg/dL (70-110)
[2024-09-19 07:18] LABS: Glucose,Whole Blood 103 mg/dL (70-110)
[2024-09-19] MEDS: COLCHICINE 0.6 MG EACH PO SCH (09:24)
[2024-09-19 12:15] LABS: Glucose,Whole Blood 96 mg/dL (70-110)
[2024-09-19 12:59] VITALS: BMI 28.4
[2024-09-19 13:16] LABS: Glucose,Whole Blood 79 mg/dL (70-110)
[2024-09-19 16:20] LABS: Glucose,Whole Blood 68 mg/dL (70-110)
[2024-09-19 17:09] LABS: Glucose,Whole Blood 94 mg/dL (70-110)
[2024-09-19] MEDS ORDERED: IBUPROFEN 400 MG TAB PO PRN (17:18)
[2024-09-19] MEDS: KETOROLAC 15 MG/ML 1 ML VIAL IVP PRN (18:51)
--- NOTE | 2024-09-19 19:54 | XR ---
EXAMINATION TYPE: XR elbow limited LT DATE OF EXAM: 09/19/2024 7:47 PM COMPARISON: None. CLINICAL INDICATION: Male, 74 years old with history of pain, swelling, pain TECHNIQUE: 2 view(s) obtained. FINDINGS: There is elevation of both anterior and posterior fat pads. Findings suggest an underlying occult fra cture. Displaced fracture is not identified. Olecranon spur is present. Subtle lucency may be within the posterior portion of the olecranon which could be an occult nondisplaced fracture on the lateral projection. IMPRESSION: 1. Suspicion of occult fracture left elbow at the olecranon. [facility], Workstation: [facility], 09/19/2024 7:51 PM
[2024-09-19 20:18] LABS: Glucose,Whole Blood 109 mg/dL (70-110)
[2024-09-19] MEDS: hydrALAZINE HCL 50 MG TAB PO SCH (21:55)
[2024-09-20 01:14] LABS: Glucose,Whole Blood 108 mg/dL (70-110)
[2024-09-20 07:15] LABS: Glucose,Whole Blood 152 mg/dL (70-110)
[2024-09-20 08:05] VITALS: RESP 16
[2024-09-20 08:39] LABS: Basophils # (A) 0.06 X 10*3/uL (0.00-0.10); Basophils % (A) 0.5 %; Eosinophils # (A) 0.56 X 10*3/uL (0.04-0.35); Eosinophils % (A) 4.8 %; HCT 35.7 % (39.6-50.0); HGB 11.2 g/dL (13.0-17.0); Lymphocytes # (A) 2.43 X 10*3/uL (0.90-5.00); Lymphocytes % (A) 20.8 %; MCH 27.1 pg (27.0-32.0); MCHC 31.4 g/dL (32.0-37.0); MCV 86.4 FL (80.0-97.0); Mean Platelet Volume 11.2 FL (9.5-12.2); Monocytes % (A) 11.1 %; NRBC Per 100 WBC 0 X 10*3/uL (0.00-0.01); Neutrophils # (A) 7.28 X 10*3/uL (1.80-7.70); Neutrophils % (A) 62.3 %; Platelet Count 239 X 10*3/uL (140-440); RBC 4.13 X 10*6/uL (4.40-5.60); RDW 12.7 % (11.5-14.5); WBC 11.69 X 10*3/uL (4.50-10.00)
[2024-09-20 09:07] LABS: BUN/Creat Ratio 30.43 Ratio (12.00-20.00); Blood Urea Nitrogen 21.3 mg/dL (9.0-27.0); Calcium 8.9 mg/dL (8.7-10.3); Carbon Dioxide 18.3 mmol/L (21.6-31.8); Chloride 107 mmol/L (96-109); Glucose 115 mg/dL (70-110); Magnesium 1.7 mg/dL (1.5-2.4); Potassium 4.2 mmol/L (3.5-5.5); Sodium 138 mmol/L (135-145)
[2024-09-20 09:17] LABS: Glucose,Whole Blood 205 mg/dL (70-110)
--- NOTE | 2024-09-20 10:30 | P.PN ---
Subjective Progress Note Date: 09/19/24 This is a pleasant 74 years old male with past medical history of multiple medical problems as below Presents because of pain in his left wrist which started 2 days ago. Patient does not recall trauma or injury but he was doing heavy duty and carrying shrimp cleaner for his car. About 2 days ago. The pain is felt like sharp severe enough to bring him to the hospital with no precipitating factors but relieved by ice. No fever no falling. He denies any other chest pain or dyspnea. No GI/ symptoms no neurological complaint He denies smoke alcohol or illicit drugs. He is hemodynamically stable He had low-grade fever on admission 104 Blood pressure elevated 183/78 Labs showing leukocytosis of 15.4 and hemoglobin 12.7. Rest of labs including CBC, BMP LFT were unremarkable ESR is elevated mildly at 38 Wrist x-ray showing prominent bony features with moderate erosions but no fracture 09/16 Patient underwent unsuccessful tapping of his left wrist He still has some pain at the area He remains on antibiotics differential diagnosis is gout MRI is recommended by orthopedic team however patient cannot have MRI done because of his back pain stimulator 09/17 Patient states that his left wrist is better but he developed some pain in the elbow although there is no evidence of left elbow swelling or signs of inflammation There is no deep infection per CT per orthopedic team. They recommended NSAIDs versus steroids, 1 times of IV Solu-Medrol provided for the patient with close follow-up as an tomorrow. Patient blood pressure is elevated therefore recommend to lower rate of IV fluid normal saline 75 down to 40 mL/h. Also patient on losartan 100 mg and metoprolol 50 mg increased to 200 mg. Remains on IV vancomycin for possible septic element 09/18 Patient left wrist arthritis significantly improving slowly and gradually Patient has less pain and swelling in his left wrist and yesterday had some pain in the left elbow also improved. Patient received IV Solu-Medrol doses yesterday for his possible gouty arthritis. We will continue with colchicine x 3 days Vancomycin was held with close monitoring while off antibiotics 09/19/2024 Patient is seen in follow-up with orthopedics following was maintained on steroids doing better although is having increasing pain and reporting left elbow pain. Will obtain an x-ray and also ask orthopedics to reeval for the increasing swelling and pain. 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 Will hold Toradol for now and increase the Motrin. Patient is afebrile with no reports of chest pain or shortness of breath. Patient has been tolerating diet with no reported nausea or vomiting. Review of systems: Constitutional: No reports of fatigue, fever, or chills Cardiovascular: No reports of chest pain or palpitations Respiratory: No reports of shortness of breath or cough GI: No reports of nausea, vomiting, or diarrhea : No reports of dysuria or retention Neurovascular: No reports of weakness or numbness, reports continued left elbow pain with swelling in left wrist is improving slowly All medications have been reviewed Physical exam: GENERAL: The patient is alert and oriented x3, not in any acute distress. Well developed, well nourished. Elderly appearing HEENT: Pupils are round and equally reacting to light. EOMI. No scleral icterus. No conjunctival pallor. Normocephalic, atraumatic. No pharyngeal erythema. No thyromegaly. CARDIOVASCULAR: S1 and S2 muffled PULMONARY: Chest is clear to auscultation, no wheezing , no crackles. ABDOMEN: Soft, nontender, nondistended, normoactive bowel sounds. No palpable organomegaly. MUSCULOSKELETAL: No joint swelling or deformity. EXTREMITIES: No cyanosis, clubbing, or pedal edema. Left wrist there is tender and warm with no significant erythema, left elbow was tender to touch with swelling noted, skin is intact NEUROLOGICAL: Gross neurological examination did not reveal any focal deficits. SKIN: No rashes. no petechiae. Assessment: Acute arthritis of the left wrist, ruled out septic arthritis concerns for pseudogout Sepsis with fever and leukocytosis Hypertension urgency Diabetes mellitus Hypertension Hyperlipidemia History of osteoarthritis Chronic pain follows with pain management outpatient CVA/TIA Coronary artery disease status post stent GI prophylaxis DVT prophylaxis Full code Plan: Infectious disease following and was maintained on antibiotics which have been discontinued being closely monitored Patient is on colchicine twice daily and steroids have been discontinued. Patient is reporting increasing pain after the steroids were discontinued and having increasing left elbow pain Orthopedics reconsulted for evaluation and possible steroid injection of that left elbow. X-ray was obtained showing suspicion of occult fracture of the left elbow at the olecranon and a displaced fracture is not identified there is an olecranon spur present with subtle lucency on the lateral projection. Patient is asking for increase in pain medications and home medications have been resumed as patient is chronically on Dilaudid oral, will add increased ibuprofen Encouraged increase activity as tolerated Awaiting reevaluation with orthopedics to discuss possible discharge planning Possible discharge in the next 24 to 48 hours The impression and plan of care has been dictated by Sirisha Hastings, Nurse Practitioner as directed. Dr. Michelle MD I have performed a history and examination and MDM of this patient, discussed the same with the dictator, and agree with the dictator's assessment and plan as written ,documented as a scribe. Based on total visit time, I have performed more than 50% of the visit. Objective - Vital Signs Vital signs: Vital Signs Temp 98.1 F 09/19/24 07:14 Pulse 69 09/19/24 07:14 Resp 20 09/19/24 07:14 BP 176/77 09/19/24 07:14 Pulse Ox 94 L 09/19/24 07:14 FiO2 Intake & Output 09/18/24 09/19/24 09/19/24 18:59 06:59 18:59 Intake Total 480 Balance 480 Intake: Intake, IV Titration 480 Amount Sodium Chloride 0.9% 1, 480 000 ml @ 40 mls/hr IV . Q24H NEEL Rx#:[id number] Other: Voiding Method Toilet Toilet # Voids 2 3 - Labs CBC & Chem 7: 09/20/24 05:09 09/20/24 05:09 Labs: Abnormal Lab Results - Last 24 Hours (Table) 09/18/24 Range/Units 12:03 POC Glucose (mg/dL) 120 H (70-110) mg/dL
[2024-09-20 12:37] LABS: Glucose,Whole Blood 128 mg/dL (70-110)
[2024-09-20 12:47] VITALS: BP 155/72; PULSE 67; TEMP 98.2
[2024-09-20] MEDS: INSULIN DEGLUDEC 200 UNIT/ML SQ SCH (12:52)
--- NOTE | 2024-09-20 13:27 | P.PN ---
Subjective Progress Note Date: 09/19/24 Principal diagnosis: Reason for follow-up is possible left wrist septic arthritis/cellulitis Patient is a 74-year-old male with a past medical history significant for CVA/TIA, Diabetes Mellitus, Hyperlipidemia, Hypertension, Myocardial Infarction ([place]), Osteoarthritis (OA), Skin Disorder patient presenting to the hospital for evaluation of left wrist pain and swelling patient did have a fever concern for possible septic arthritis. On today's evaluation that is 09/19/2024,the patient denies any fever or any chills, patient is breathing comfortably on room air, the patient denies chest pain shortness of breath and no significant cough, patient denies abdominal pa in, no nausea vomiting or diarrhea. Patient pain to the left wrist has decreased complaining of more pain and swelling to the left elbow area. Patient did have white count of 11.69, creatinine 0.7 Objective - Vital Signs Vital signs: Vital Signs Temp 98.1 F 09/19/24 07:14 Pulse 69 09/19/24 07:14 Resp 20 09/19/24 07:14 BP 176/77 09/19/24 07:14 Pulse Ox 94 L 09/19/24 07:14 FiO2 Intake & Output 09/18/24 09/19/24 09/19/24 18:59 06:59 18:59 Intake Total 480 Balance 480 Intake: Intake, IV Titration 480 Amount Sodium Chloride 0.9% 1, 480 000 ml @ 40 mls/hr IV . Q24H [facility] Rx#:[id number] Other: Voiding Method Toilet Toilet # Voids 2 3 - Exam GENERAL DESCRIPTION: An elderly male up in bed in no distress RESPIRATORY SYSTEM: Unlabored breathing , decreased breath sounds at bases HEART: S1 S2 regular rate and rhythm , ABDOMEN: Soft , no tenderness EXTREMITIES: Left wrist did have some swelling no significant redness or drainage - Labs CBC & Chem 7: 09/20/24 05:09 09/20/24 05:09 Labs: Abnormal Lab Results - Last 24 Hours (Table) 09/18/24 Range/Units 12:03 POC Glucose (mg/dL) 120 H (70-110) mg/dL Assessment and Plan (1) SIRS (systemic inflammatory response syndrome) Current Visit: Yes Status: Acute Code(s): R65.10 - SIRS OF NON-INFECTIOUS ORIGIN W/O ACUTE ORGAN DYSFUNCTION SNOMED Code(s): 457874822 (2) Septic arthritis Current Visit: Yes Status: Acute Code(s): M00.9 - PYOGENIC ARTHRITIS, UNSPECIFIED SNOMED Code(s): 438218013 (3) Allergy to multiple antibiotics Current Visit: Yes Status: Acute Code(s): Z88.1 - ALLERGY STATUS TO OTHER ANTIBIOTIC AGENTS SNOMED Code(s): 645605457 Plan: 1patient presented to hospital with left wrist pain and swelling in this patient who did have fever and elevated white count meeting criteria for SIRS with a question of septic versus inflammatory arthritis patient mention significant improvement over the last 24 hours that we will go against septic arthritis but not entirely excluded 2-patient with multiple antibiotic ALLERGIES that would limit the number of antibiotic safe to use 3-patient has been evaluated by orthopedics fluid could not be aspirated CT of the wrist has been suggestive of possible CPPD arthropathy and no fluid 4 patient mention improvement to the left wrist however more swelling to the left elbow may benefit from Ortho evaluation possible aspiration/injection to the left elbow working on bursa continue with colchicine multiple question answered Dictation was produced using [employer] dictation software. please excuse any grammatical, word or spelling errors. Time with Patient: Less than 30
--- NOTE | 2024-09-20 13:28 | P.PN ---
Subjective Progress Note Date: 09/20/24 Principal diagnosis: Reason for follow-up is possible left wrist septic arthritis/cellulitis Patient is a 74-year-old male with a past medical history significant for CVA/TIA, Diabetes Mellitus, Hyperlipidemia, Hypertension, Myocardial Infarction ([place]), Osteoarthritis (OA), Skin Disorder patient presenting to the hospital for evaluation of left wrist pain and swelling patient did have a fever concern for possible septic arthritis. On today's evaluation that is 09/20/2024,the patient remains to be afebrile, patient is on room air not requiring supplemental oxygen and denies any shortness of breath no chest pain or cough.Patient denies having any nausea or vomiting, no abdominal pain and no diarrhea, patient mention improvement of pain to the left wrist as well as the elbow area feeling better wants to go home. No new lab has been repeated today blood culture has been negative Objective - Vital Signs Vital signs: Vital Signs Temp 98.2 F 09/20/24 12:46 Pulse 67 09/20/24 12:46 Resp 16 09/20/24 12:46 BP 155/72 09/20/24 12:46 Pulse Ox 96 09/20/24 12:46 FiO2 Intake & Output 09/19/24 09/20/24 09/20/24 18:59 06:59 18:59 Intake Total 540 1020 Balance 540 1020 Weight 108.862 kg Intake: Oral 540 1020 Other: Voiding Method Toilet # Voids 2 - Exam GENERAL DESCRIPTION: An elderly male up in bed in no distress RESPIRATORY SYSTEM: Unlabored breathing , decreased breath sounds at bases HEART: S1 S2 regular rate and rhythm , ABDOMEN: Soft , no tenderness EXTREMITIES: Left wrist did have some swelling no significant redness or drainage - Labs CBC & Chem 7: 09/20/24 05:09 09/20/24 05:09 Labs: Abnormal Lab Results - Last 24 Hours (Table) 09/19/24 09/20/24 09/20/24 Range/Units 16:07 05:09 05:09 WBC 11.69 H (4.50-10.00) X 10*3/uL RBC 4.13 L (4.40-5.60) X 10*6/uL Hgb 11.2 L (13.0-17.0) g/dL Hct 35.7 L (39.6-50.0) % MCHC 31.4 L (32.0-37.0) g/dL Immature Gran # 0.06 H (0.00-0.04) X 10*3/uL Monocytes # 1.30 H (0.20-1.00) X 10*3/uL Eosinophils # 0.56 H (0.04-0.35) X 10*3/uL Carbon Dioxide 18.3 L (21.6-31.8) mmol/L Anion Gap 12.70 H (4.00-12.00) mmol/L BUN/Creatinine Ratio 30.43 H (12.00-20.00) Ratio Glucose 115 H (70-110) mg/dL POC Glucose (mg/dL) 68 L (70-110) mg/dL 09/20/24 09/20/24 09/20/24 Range/Units 07:13 09:15 12:35 WBC (4.50-10.00) X 10*3/uL RBC (4.40-5.60) X 10*6/uL Hgb (13.0-17.0) g/dL Hct (39.6-50.0) % MCHC (32.0-37.0) g/dL Immature Gran # (0.00-0.04) X 10*3/uL Monocytes # (0.20-1.00) X 10*3/uL Eosinophils # (0.04-0.35) X 10*3/uL Carbon Dioxide (21.6-31.8) mmol/L Anion Gap (4.00-12.00) mmol/L BUN/Creatinine Ratio (12.00-20.00) Ratio Glucose (70-110) mg/dL POC Glucose (mg/dL) 152 H 205 H 128 H (70-110) mg/dL Microbiology - Last 24 Hours (Table) 09/14/24 18:14 Blood Culture - Final Blood Assessment and Plan (1) SIRS (systemic inflammatory response syndrome) Current Visit: Yes Status: Acute Code(s): R65.10 - SIRS OF NON-INFECTIOUS ORIGIN W/O ACUTE ORGAN DYSFUNCTION SNOMED Code(s): 235242664 (2) Septic arthritis Current Visit: Yes Status: Acute Code(s): M00.9 - PYOGENIC ARTHRITIS, UNSPECIFIED SNOMED Code(s): 990072015 (3) Allergy to multiple antibiotics Current Visit: Yes Status: Acute Code(s): Z88.1 - ALLERGY STATUS TO OTHER ANTIBIOTIC AGENTS SNOMED Code(s): 732437779 Plan: 1patient presented to hospital with left wrist pain and swelling in this patient who did have fever and elevated white count meeting criteria for SIRS with a question of septic versus inflammatory arthritis patient mention significant improvement over the last 24 hours that we will go against septic arthritis but not entirely excluded 2-patient with multiple antibiotic ALLERGIES that would limit the number of antibiotic safe to use 3-patient has been evaluated by orthopedics fluid could not be aspirated CT of the wrist has been suggestive of possible CPPD arthropathy and no fluid, blood culture have been negative 4 patient mention improvement to the left wrist as well as to the elbow area we will consider oral colchicine on discharge and no need for antibiotics multiple question concern answered Dictation was produced using [employer] dictation software. please excuse any grammatical, word or spelling errors. Time with Patient: Less than 30
--- NOTE | 2024-09-20 13:35 | P.CNOR ---
History of Present Illness - [facility] Consult date: 09/20/24 Consult reason: other (Evaluation of left wrist and elbow) History of present illness: The patient is a 74 y/o who was previously evaluated by our partner, Dr. Boyd, for left wrist and elbow pain to rule out septic arthritis. Dr. Boyd attempted a wrist aspiration a few days ago. A CT of the wrist ruled out an infectious source and revealed signs of pseudogout. According to the patient, his elbow pain improved greatly on IV steroids and worsened when the steroids were discontinued. He was started on Toradol yesterday with improvement. Today, the patient states his pain is improved again in the elbow and the wrist is feeling almost back to normal. ESR and CRP were elevated on admission. X-ray of the left elbow was completed yesterday. IV antibiotics were discontinued by ID a few days ago. Review of Systems Constitutional: Denies chills, Denies fatigue, Denies fever Cardiovascular: Denies chest pain, Denies shortness of breath Respiratory: Denies cough Gastrointestinal: Denies diarrhea, Denies nausea, Denies vomiting Musculoskeletal: left: elbow pain, elbow stiffness, elbow swelling Past Medical History Past Medical History: Cancer, CVA/TIA, Diabetes Mellitus, Hyperlipidemia, Hypertension, Myocardial Infarction ([place]), Osteoarthritis (OA), Skin Disorder Additional Past Medical History / Comment(s): sinus infections; Pt has itchiness from medications, recent cardiac testing for procedure. hx skin cancer on eyebrow, treated. TIA x2 no residuals. hx of vertigo 05/2021. NH x 7 Last Myocardial Infarction Date:: 2017 History of Any Multi-Drug Resistant Organisms: None Reported Past Surgical History: Appendectomy, Back Surgery, Heart Catheterization With Stent, Orthopedic Surgery, Tonsillectomy Additional Past Surgical History / Comment(s): Pain stimulator in lower back, el ectrodes in upper back. Left knee repair ACL and meniscus tear, L rotator cuff x2, trigger point injections in shoulders Past Anesthesia/Blood Transfusion Reactions: No Reported Reaction Date of Last Stent Placement:: 2017 Past Psychological History: No Psychological Hx Reported Smoking Status: Former smoker Past Alcohol Use History: None Reported Additional Past Alcohol Use History / Comment(s): Quit when he was 55 yrs old. 2ppd Past Drug Use History: None Reported - Past Family History Mother Family Medical History: Cancer, Congestive Heart Failure (CHF), Diabetes Mellitus, Hyperlipidemia, Hypertension Additional Family Medical History / Comment(s): breast cancer Father Family Medical History: Coronary Artery Disease (CAD), Hyperlipidemia, Hypertension Additional Family Medical History / Comment(s): pacemaker and AICD, ALS Medications and Allergies Home Medications Medication Instructions Recorded Confirmed Type Aspirin [Adult Low Dose Aspirin EC] 81 mg PO HS 01/14/20 09/14/24 History Atorvastatin [Lipitor] 80 mg PO HS 01/14/20 09/14/24 History Cetirizine HCl [Zyrtec] 10 mg PO HS 01/14/20 09/14/24 History Clopidogrel [Plavix] 75 mg PO HS 01/14/20 09/14/24 History Lidocaine 5% Patch [Lidoderm 5% 1 patch TOPICAL DAILY 01/14/20 09/14/24 History Patch] Tamsulosin [Flomax] 0.4 mg PO HS 01/14/20 09/14/24 History metFORMIN HCL [Glucophage] 1,000 mg PO BID-W/MEALS 01/14/20 09/14/24 History Losartan Potassium 100 mg PO DAILY 07/22/23 09/14/24 History Albuterol Inhaler [Ventolin Hfa 2 puff INHALATION RT-Q4H PRN 09/14/24 09/14/24 History Inhaler] Ergocalciferol (Vitamin D2) 1,250 mcg PO Q14D 09/14/24 09/14/24 History [Drisdol (50,000 Iu)] Gabapentin [Neurontin] 900 mg PO TID 09/14/24 09/14/24 History HYDROmorphone [Dilaudid] 4 mg PO BID 09/14/24 09/14/24 History Insulin Degludec [Tresiba 80 units SQ HS 09/14/24 09/14/24 History Flextouch U-200 Pen] Linaclotide [Linzess] 145 mcg PO DAILY PRN 09/14/24 09/14/24 History fentaNYL 50MCG/HR PATCH [Duragesic 1 patch TRANSDERM Q72H 09/14/24 09/14/24 History 50MCG/HR] predniSONE [Deltasone] 40 mg PO DAILY #10 tab 09/14/24 Rx sitaGLIPtin [Januvia] 100 mg PO DIRECTED 09/14/24 09/14/24 History Tirzepatide [Mounjaro] 2.5 mg SQ WE 09/15/24 09/15/24 History Colchicine [Colcrys] 0.6 mg PO BID 7 Days #14 each 09/20/24 Rx Ibuprofen [Motrin] 800 mg PO Q6HR PRN #30 tab 09/20/24 Rx Metoprolol Succinate (ER) [Toprol 100 mg PO DAILY #30 tab 09/20/24 Rx XL] hydrALAZINE HCL [Apresoline] 50 mg PO TID 30 Days #90 tab 09/20/24 Rx Allergies Allergy/AdvReac Type Severity Reaction Status Date / Time SAMINA Inhibitors Allergy Rash/Hives Verified 09/14/24 19:07 acetaminophen [From Percocet] Allergy Itching Verified 09/14/24 19:07 ARB-Angiotensin Receptor Allergy Rash/Hives Verified 09/14/24 19:07 Antagonist bacitracin Allergy Rash/Hives Verified 09/14/24 19:07 [From Neosporin ([id number])] cephalexin [From Keflex] Allergy Rash/Hives Verified 09/14/24 19:07 insulin glargine Allergy Swelling Verified 09/14/24 19:07 [From Lantus U-100 Insulin] neomycin Allergy Rash/Hives Verified 09/14/24 19:07 [From Neosporin ([id number])] oxycodone [From Percocet] Allergy Itching Verified 09/14/24 19:07 Penicillins Allergy Rash/Hives Verified 09/14/24 19:07 polymyxin B Allergy Rash/Hives Verified 09/14/24 19:07 [From Neosporin ([id number])] Physical Examination Osteopathic Statement: *. No significant issues noted on an osteopathic structural exam other than those noted in the History and Physical/Consult. The patient is a 74 y/o male who is no acute distress. He is alert and oriented x3. Inspection of the elbow reveals no deformity, no erythema and no skin problems. There is moderate amount of swelling to the elbow joint region. Range of motion of the wrist and hand are normal. He is lacking full extension and flexion of the elbow. Elbow joint stability is normal. Neurologic exam is normal with normal sensation, motor strength and deep tendon reflexes. Circulation of the upper extremity is normal with good radial pulse and normal capillary refill in the fingertips. Palpation demonstrates tenderness about the lateral epicondyle and origin of the extensor muscles. No pain over the joint today. No pain on passive or active ROM. Results X-rays of the left elbow were reviewed today and reveals no acute fracture or osteolysis noted. Arthritic changes noted. - Labs Labs: Abnormal Lab Results - Last 24 Hours (Table) 09/19/24 09/20/24 09/20/24 Range/Units 16:07 05:09 05:09 WBC 11.69 H (4.50-10.00) X 10*3/uL RBC 4.13 L (4.40-5.60) X 10*6/uL Hgb 11.2 L (13.0-17.0) g/dL Hct 35.7 L (39.6-50.0) % MCHC 31.4 L (32.0-37.0) g/dL Immature Gran # 0.06 H (0.00-0.04) X 10*3/uL Monocytes # 1.30 H (0.20-1.00) X 10*3/uL Eosinophils # 0.56 H (0.04-0.35) X 10*3/uL Carbon Dioxide 18.3 L (21.6-31.8) mmol/L Anion Gap 12.70 H (4.00-12.00) mmol/L BUN/Creatinine Ratio 30.43 H (12.00-20.00) Ratio Glucose 115 H (70-110) mg/dL POC Glucose (mg/dL) 68 L (70-110) mg/dL 09/20/24 09/20/24 09/20/24 Range/Units 07:13 09:15 12:35 WBC (4.50-10.00) X 10*3/uL RBC (4.40-5.60) X 10*6/uL Hgb (13.0-17.0) g/dL Hct (39.6-50.0) % MCHC (32.0-37.0) g/dL Immature Gran # (0.00-0.04) X 10*3/uL Monocytes # (0.20-1.00) X 10*3/uL Eosinophils # (0.04-0.35) X 10*3/uL Carbon Dioxide (21.6-31.8) mmol/L Anion Gap (4.00-12.00) mmol/L BUN/Creatinine Ratio (12.00-20.00) Ratio Glucose (70-110) mg/dL POC Glucose (mg/dL) 152 H 205 H 128 H (70-110) mg/dL Microbiology - Last 24 Hours (Table) 09/14/24 18:14 Blood Culture - Final Blood H & H 09/14/24 09/16/24 09/20/24 Range/Units 15:00 06:17 05:09 Hgb 12.7 L 10.0 L 11.2 L (13.0-17.0) g/dL Hct 38.2 L 32.8 L 35.7 L (39.6-50.0) % Result Diagrams: 09/20/24 05:09 09/20/24 05:09 Assessment and Plan (1) Calcium pyrophosphate deposition disease (CPPD) Status: Acute Code(s): M11.20 - OTHER CHONDROCALCINOSIS, UNSPECIFIED SITE SNOMED Code(s): 627541870 (2) Left elbow pain Status: Acute Code(s): M25.522 - PAIN IN LEFT ELBOW SNOMED Code(s): 46949943 Plan: The clinical and x-ray findings were discussed with the patient. The case was discussed with Dr. Boyd and Dr. Eliz Jackson. I have very low suspicion for septic arthritis still. He likely has pseudogout and antiinflammatories are recommended. Due to his cardiac history, he would like to avoid NSAIDs at this time. He was offered a Prednisone taper or a possible cortisone injection in the elbow. He would like to try the oral steroids at this time. The patient was encouraged to work on range of motion of the elbow to prevent stiffness. He may be discharged home from an orthopedic standpoint today. He may follow up in our office in the 1-2 weeks for the left elbow and wrist if needed. Case discussed with Yoli and agree with above. Imaging, labs, and exam is consistent with a resolving inflammatory arthritis of the wrist and elbow. History of a dry tap of the wrist. Agree with anti-inflammatories. Follow up as needed.
== END 2024-09-20 15:19 | disposition home or self-care (01) | DRG 872 ==
LOC: EC 12:57 → 5NMEDONC 18:49
PROVIDERS: ADMIT Hospitalist; ATTEND Hospitalist
PROC: 0RJ Upper Joints, Inspection (ICD-10-PCS; principal; 2024-09-16)
DX: A41.9 Sepsis, unspecified organism (principal); I16.0 Hypertensive urgency; E11.9 Type 2 diabetes mellitus without complications; M00.9 Pyogenic arthritis, unspecified; Z79.4 Long term (current) use of insulin; I10 Essential (primary) hypertension; E78.5 Hyperlipidemia, unspecified; I25.10 Atherosclerotic heart disease of native coronary artery without angina pectoris; M10.9 Gout, unspecified; M11.232 Other chondrocalcinosis, left wrist; Z79.82 Long term (current) use of aspirin; Z79.899 Other long term (current) drug therapy; Z79.84 Long term (current) use of oral hypoglycemic drugs; Z88.1 Allergy status to other antibiotic agents; Z88.5 Allergy status to narcotic agent; Z88.8 Allergy status to other drugs, medicaments and biological substances; Z88.0 Allergy status to penicillin; Z86.73 Personal history of transient ischemic attack (TIA), and cerebral infarction without residual deficits; I25.2 Old myocardial infarction; Z87.891 Personal history of nicotine dependence; Z95.5 Presence of coronary angioplasty implant and graft
CPT/HCPCS: 36415; 80048; 80053; 80202; 82565; 83036; 83735; 85025; 85652; 86140; 87040; 96365; 96366; 96367; 96375; 99285

== ENCOUNTER 2024-10-19 19:54 | Inpatient (IN) | payer MEDICARE, OTHER ==
[2024-10-19 20:25] LABS: Basophils # (A) 0.03 10*3/uL (0.00-0.10); Basophils % (A) 0.2 %; Eosinophils # (A) 0.21 10*3/uL (0.04-0.35); Eosinophils % (A) 1.7 %; HCT 36.8 % (39.6-50.0); HGB 11.9 g/dL (13.0-17.0); Lymphocytes % (A) 3.9 %; MCH 27.5 pg (27.0-32.0); MCHC 32.3 g/dL (32.0-37.0); MCV 85.2 fL (80.0-97.0); Mean Platelet Volume 10.1 fL (9.5-12.2); Monocytes % (A) 5.5 %; Neutrophils # (A) 11.21 10*3/uL (1.80-7.70); Neutrophils % (A) 88.4 %; Platelet Count 227 10*3/uL (140-440); RBC 4.32 10*6/uL (4.40-5.60); RDW 14.4 % (11.5-14.5); WBC 12.69 10*3/uL (4.50-10.00)
[2024-10-19 20:36] LABS: ALT 26 U/L (4-49); AST 26 U/L (17-59); African American GFR (CKD) >90 (>60 ml/min/1.73 sqM); Alkaline Phosphatase 111 U/L (38-126); Anion Gap 12 mmol/L; Blood Urea Nitrogen 15 mg/dL (9-20); Calcium 9.9 mg/dL (8.4-10.2); Carbon Dioxide 21 mmol/L (22-30); Chloride 104 mmol/L (98-107); Glucose 252 mg/dL (74-99); Non-African American GFR(CKD) 79 (>60 ml/min/1.73 sqM); Potassium 4.1 mmol/L (3.5-5.1); Sodium 137 mmol/L (137-145); Total Bilirubin 0.6 mg/dL (0.2-1.3); Total Protein 7.1 g/dL (6.3-8.2)
[2024-10-19 20:41] LABS: Partial Thromboplastin Time 23.2 sec (22.0-30.0); Prothrombin Time 11.4 sec (10.0-12.5)
--- NOTE | 2024-10-19 20:42 | XR ---
EXAMINATION TYPE: XR chest 2V DATE OF EXAM: 10/19/2024 8:36 PM COMPARISON: 02/12/2023 CLINICAL INDICATION: Male, 74 years old with history of difficulty breathing, TECHNIQUE: XR chest 2V view(s) obtained. FINDINGS: The heart size is normal. The pulmonary vasculature is normal. The lungs are clear. Stimulator leads are within the spinal canal. IMPRESSION: 1. No acute pulmonary process. [facility], , 10/19/2024 8:40 PM
--- NOTE | 2024-10-19 20:50 | ED ---
SOB HPI - General Chief Complaint: Shortness of Breath Stated Complaint: GAYATRI Time Seen by Provider: 10/19/24 20:00 Source: patient Mode of arrival: ambulatory Limitations: no limitations - History of Present Illness Initial Comments: 74-year-old male with past medical history of chronic pain with pain stimulator diabetes, hypertension, hyperlipidemia who presents to the emergency department with sudden onset of shortness of breath. Patient provides majority of the history. States that the patient has been sluggish since he was discharged from the hospital at the end of August. Today the patient was more active at home, moving around some boxes. She states that he suddenly started complaining of shortness of breath and palpitations. Patient was feeling extreme myalgias as if he could not get warm. No report of any fevers or sick contacts. Patient denies chest pain. No nausea or vomiting. Denies diarrhea. Was hospitalized for possible septic left wrist in August. He denies having any specific joint pain or skin breakdown. He had several doctors appointments yesterday. states that he was told to hold his losartan and use his hydralazine because he had blood work done that showed that his potassium was high. No abdominal pain. No other alleviating, precipitating or modifying factors - Related Data Home Medications Medication Instructions Recorded Confirmed Aspirin [Adult Low Dose Aspirin EC] 81 mg PO HS 01/14/20 09/14/24 Atorvastatin [Lipitor] 80 mg PO HS 01/14/20 09/14/24 Cetirizine HCl [Zyrtec] 10 mg PO HS 01/14/20 09/14/24 Clopidogrel [Plavix] 75 mg PO HS 01/14/20 09/14/24 Lidocaine 5% Patch [Lidoderm 5% 1 patch TOPICAL DAILY 01/14/20 09/14/24 Patch] Tamsulosin [Flomax] 0.4 mg PO HS 01/14/20 09/14/24 metFORMIN HCL [Glucophage] 1,000 mg PO BID-W/MEALS 01/14/20 09/14/24 Losartan Potassium 100 mg PO DAILY 07/22/23 09/14/24 Albuterol Inhaler [Ventolin Hfa 2 puff INHALATION RT-Q4H PRN 09/14/24 09/14/24 Inhaler] Ergocalciferol (Vitamin D2) 1,250 mcg PO Q14D 09/14/24 09/14/24 [Drisdol (50,000 Iu)] Gabapentin [Neurontin] 900 mg PO TID 09/14/24 09/14/24 HYDROmorphone [Dilaudid] 4 mg PO BID 09/14/24 09/14/24 Insulin Degludec [Tresiba 80 units SQ HS 09/14/24 09/14/24 Flextouch U-200 Pen] Linaclotide [Linzess] 145 mcg PO DAILY PRN 09/14/24 09/14/24 fentaNYL 50MCG/HR PATCH [Duragesic 1 patch TRANSDERM Q72H 09/14/24 09/14/24 50MCG/HR] sitaGLIPtin [Januvia] 100 mg PO DIRECTED 09/14/24 09/14/24 Tirzepatide [Mounjaro] 2.5 mg SQ WE 09/15/24 09/15/24 Previous Rx's Medication Instructions Recorded predniSONE [Deltasone] 40 mg PO DAILY #10 tab 09/14/24 Colchicine [Colcrys] 0.6 mg PO BID 7 Days #14 each 09/20/24 Ibuprofen [Motrin] 800 mg PO Q6HR PRN #30 tab 09/20/24 Metoprolol Succinate (ER) [Toprol 100 mg PO DAILY #30 tab 09/20/24 XL] hydrALAZINE HCL [Apresoline] 50 mg PO TID 30 Days #90 tab 09/20/24 Allergies Allergy/AdvReac Type Severity Reaction Status Date / Time SAMINA Inhibitors Allergy Rash/Hives Verified 10/19/24 19:58 acetaminophen [From Percocet] Allergy Itching Verified 10/19/24 19:58 ARB-Angiotensin Receptor Allergy Rash/Hives Verified 10/19/24 19:58 Antagonist bacitracin Allergy Rash/Hives Verified 10/19/24 19:58 [From Neosporin ([id number])] cephalexin [From Keflex] Allergy Rash/Hives Verified 10/19/24 19:58 insulin glargine Allergy Swelling Verified 10/19/24 19:58 [From Lantus U-100 Insulin] neomycin Allergy Rash/Hives Verified 10/19/24 19:58 [From Neosporin ([id number])] oxycodone [From Percocet] Allergy Itching Verified 10/19/24 19:58 Penicillins Allergy Rash/Hives Verified 10/19/24 19:58 polymyxin B Allergy Rash/Hives Verified 10/19/24 19:58 [From Neosporin ([id number])] Review of Systems ROS Statement: Those systems with pertinent positive or pertinent negative responses have been documented in the HPI. ROS Other: All systems not noted in ROS Statement are negative. Past Medical History Past Medical History: Cancer, CVA/TIA, Diabetes Mellitus, Hyperlipidemia, Hypertension, Myocardial Infarction (GA), Osteoarthritis (OA), Skin Disorder Additional Past Medical History / Comment(s): sinus infections; Pt has itchiness from medications, recent cardiac testing for procedure. hx skin cancer on eyebrow, treated. TIA x2 no residuals. hx of vertigo 05/2021. GA x 7 Last Myocardial Infarction Date:: 2017 History of Any Multi-Drug Resistant Organisms: None Reported Past Surgical History: Appendectomy, Back Surgery, Heart Catheterization With Stent, Orthopedic Surgery, Tonsillectomy Additional Past Surgical History / Comment(s): Pain stimulator in lower back, electrodes in upper back. Left knee repair ACL and meniscus tear, L rotator cuff x2, trigger point injections in shoulders Past Anesthesia/Blood Transfusion Reactions: No Reported Reaction Date of Last Stent Placement:: 2017 Past Psychological History: No Psychological Hx Reported Smoking Status: Former smoker Past Alcohol Use History: None Reported Past Drug Use History: None Reported - Past Family History Mother Family Medical History: Cancer, Congestive Heart Failure (CHF), Diabetes Mellitus, Hyperlipidemia, Hypertension Additional Family Medical History / Comment(s): breast cancer Father Family Medical History: Coronary Artery Disease (CAD), Hyperlipidemia, Hypertension Additional Family Medical History / Comment(s): pacemaker and AICD, ALS General Exam Limitations: no limitations Course Vital Signs 10/19/24 10/19/24 10/19/24 19:56 20:06 20:08 Temperature 100.1 F H 100.4 F H Pulse Rate 140 H Respiratory 22 28 H Rate Blood Pressure 153/72 O2 Sat by Pulse 95 Oximetry 10/19/24 10/19/24 21:01 22:05 Temperature 100.0 F H Pulse Rate 129 H 115 H Respiratory 18 18 Rate Blood Pressure 152/71 128/63 O2 Sat by Pulse 95 96 Oximetry Medical Decision Making - Medical Decision Making Was pt. sent in by a medical professional or institution ([facility], GOLF TECHNICIAN, urgent care, hospital, or retirement...) When possible be specific @ -[No] Did you speak to anyone other than the patient for history (EMS, parent, family, police, friend...)? What history was obtained from this source @ -[No] Did you review nursing and triage notes (agree or disagree)? Why? @ -[I reviewed and agree with nursing and triage notes] Were old charts reviewed (outside hosp., previous admission, EMS record, old EKG, old radiological studies, urgent care reports/EKG's, retirement records)? Report findings @ -[No old charts were reviewed] Differential Diagnosis (chest pain, altered mental status, abdominal pain women, abdominal pain men, vaginal bleeding, weakness, fever, dyspnea, syncope, headache, dizziness, GI bleed, back pain, seizure, CVA, palpatations, mental health, musculoskeletal)? @ -[not applicable] EKG interpreted by me (3pts min.). @ -yes and demonstrates sinus tachycardia with a rate of 133. AL interval 159. QRS 94. QTc of 361. No acute ST segment elevation X-rays interpreted by me (1pt min.). @ -[None done] CT interpreted by me (1pt min.). @ -[None done] U/S interpreted by me (1pt. min.). @ -[None done] What testing was considered but not performed or refused? (CT, X-rays, U/S, la bs)? Why? @ -[None] What meds were considered but not given or refused? Why? @ -[None] Did you discuss the management of the patient with other professionals (professionals i.e. [facility], GOLF TECHNICIAN, lab, RT, psych nurse, geriatric social work professor, oil pipe inspector helper, teacher, correctional officer, home health care case manager)? Give summary @ -[No] Was smoking cessation discussed for >3mins.? @ -[No] Was critical care preformed (if so, how long)? @ -[No] Were there social determinants of health that impacted care today? How? (Homelessness, low income, unemployed, alcoholism, drug addiction, transportation, low edu. Level, literacy, decrease access to med. care, [facility], rehab)? @ -[No] Was there de-escalation of care discussed even if they declined (Discuss DNR or withdrawal of care, Hospice)? DNR status @ -[No] What co-morbidities impacted this encounter? (DM, HTN, Smoking, COPD, CAD, Cancer, CVA, ARF, Chemo, Hep., AIDS, mental health diagnosis, sleep apnea, morbid obesity)? @ -[None] Was patient admitted / discharged? Hospital course, mention meds given and route, prescriptions, significant lab abnormalities, going to OR and other pertinent info. @ -[hospital course] Undiagnosed new problem with uncertain prognosis? @ -[No] Drug Therapy requiring intensive monitoring for toxicity (Heparin, Nitro, Insulin, Cardizem)? @ -[No] Were any procedures done? @ -[No] Diagnosis/symptom? @ -[default] Acute, or Chronic, or Acute on Chronic? @ -[default] Uncomplicated (without systemic symptoms) or Complicated (systemic symptoms)? @ -[default] Side effects of treatment? @ -[No] Exacerbation, Progression, or Severe Exacerbation? @ -[No] Poses a threat to life or bodily function? How? (Chest pain, USA, GA, pneumonia, PE, COPD, DKA, ARF, appy, cholecystitis, CVA, Diverticulitis, Homicidal, Suicidal, threat to staff... and all critical care pts) @ -[No] - Lab Data Result diagrams: 10/19/24 20:09 10/19/24 20:09 Lab Results 10/19/24 10/19/24 10/19/24 Range/Units 20:09 20:09 20:09 WBC 12.69 H (4.50-10.00) 10*3/uL RBC 4.32 L (4.40-5.60) 10*6/uL Hgb 11.9 L (13.0-17.0) g/dL Hct 36.8 L (39.6-50.0) % MCV 85.2 (80.0-97.0) fL MCH 27.5 (27.0-32.0) pg MCHC 32.3 (32.0-37.0) g/dL Plt Count 227 (140-440) 10*3/uL MPV 10.1 (9.5-12.2) fL Immature Gran % (Auto) 0.3 % Neutrophils % 88.4 % Lymphocytes % 3.9 % Monocytes % 5.5 % Eosinophils % 1.7 % Basophils % 0.2 % Immature Gran # 0.04 (0.00-0.04) 10*3/uL Neutrophils # 11.21 H (1.80-7.70) 10*3/uL Lymphocytes # 0.50 L (0.90-5.00) 10*3/uL Monocytes # 0.70 (0.20-1.00) 10*3/uL Eosinophils # 0.21 (0.04-0.35) 10*3/uL Basophils # 0.03 (0.00-0.10) 10*3/uL PT 11.4 (10.0-12.5) sec INR 1.0 (<1.2) APTT 23.2 (22.0-30.0) sec D-Dimer 1.30 H (<0.60) mg/L FEU Sodium 137 (137-145) mmol/L Potassium 4.1 (3.5-5.1) mmol/L Chloride 104 (98-107) mmol/L Carbon Dioxide 21 L (22-30) mmol/L Anion Gap 12 mmol/L BUN 15 (9-20) mg/dL Creatinine 0.96 (0.66-1.25) mg/dL Est GFR (CKD-EPI)AfAm >90 (>60 ml/min/1.73 sqM) Est GFR (CKD-EPI)NonAf 79 (>60 ml/min/1.73 sqM) Glucose 252 H (74-99) mg/dL Lactic Ac Sepsis Rflx Plasma Lactic Acid Rodolfo (0.7-2.0) mmol/L Calcium 9.9 (8.4-10.2) mg/dL Total Bilirubin 0.6 (0.2-1.3) mg/dL AST 26 (17-59) U/L ALT 26 (4-49) U/L Alkaline Phosphatase 111 (38-126) U/L Troponin I (0.000-0.034) ng/mL Total Protein 7.1 (6.3-8.2) g/dL Albumin 4.0 (3.5-5.0) g/dL Influenza Type A (PCR) (Not Detectd) Influenza Type B (PCR) (Not Detectd) RSV (PCR) (Not Detectd) SARS-CoV-2 (PCR) (Not Detectd) 10/19/24 10/19/24 10/19/24 Range/Units 20:09 20:09 20:09 WBC (4.50-10.00) 10*3/uL RBC (4.40-5.60) 10*6/uL Hgb (13.0-17.0) g/dL Hct (39.6-50.0) % MCV (80.0-97.0) fL MCH (27.0-32.0) pg MCHC (32.0-37.0) g/dL Plt Count (140-440) 10*3/uL MPV (9.5-12.2) fL Immature Gran % (Auto) % Neutrophils % % Lymphocytes % % Monocytes % % Eosinophils % % Basophils % % Immature Gran # (0.00-0.04) 10*3/uL Neutrophils # (1.80-7.70) 10*3/uL Lymphocytes # (0.90-5.00) 10*3/uL Monocytes # (0.20-1.00) 10*3/uL Eosinophils # (0.04-0.35) 10*3/uL Basophils # (0.00-0.10) 10*3/uL PT (10.0-12.5) sec INR (<1.2) APTT (22.0-30.0) sec D-Dimer (<0.60) mg/L FEU Sodium (137-145) mmol/L Potassium (3.5-5.1) mmol/L Chloride (98-107) mmol/L Carbon Dioxide (22-30) mmol/L Anion Gap mmol/L BUN (9-20) mg/dL Creatinine (0.66-1.25) mg/dL Est GFR (CKD-EPI)AfAm (>60 ml/min/1.73 sqM) Est GFR (CKD-EPI)NonAf (>60 ml/min/1.73 sqM) Glucose (74-99) mg/dL Lactic Ac Sepsis Rflx Plasma Lactic Acid Rodolfo 2.2 H* (0.7-2.0) mmol/L Calcium (8.4-10.2) mg/dL Total Bilirubin (0.2-1.3) mg/dL AST (17-59) U/L ALT (4-49) U/L Alkaline Phosphatase (38-126) U/L Troponin I 0.026 (0.000-0.034) ng/mL Total Protein (6.3-8.2) g/dL Albumin (3.5-5.0) g/dL Influenza Type A (PCR) Not Detected (Not Detectd) Influenza Type B (PCR) Not Detected (Not Detectd) RSV (PCR) Not Detected (Not Detectd) SARS-CoV-2 (PCR) Not Detected (Not Detectd) 10/19/24 Range/Units 20:40 WBC (4.50-10.00) 10*3/uL RBC (4.40-5.60) 10*6/uL Hgb (13.0-17.0) g/dL Hct (39.6-50.0) % MCV (80.0-97.0) fL MCH (27.0-32.0) pg MCHC (32.0-37.0) g/dL Plt Count (140-440) 10*3/uL MPV (9.5-12.2) fL Immature Gran % (Auto) % Neutrophils % % Lymphocytes % % Monocytes % % Eosinophils % % Basophils % % Immature Gran # (0.00-0.04) 10*3/uL Neutrophils # (1.80-7.70) 10*3/uL Lymphocytes # (0.90-5.00) 10*3/uL Monocytes # (0.20-1.00) 10*3/uL Eosinophils # (0.04-0.35) 10*3/uL Basophils # (0.00-0.10) 10*3/uL PT (10.0-12.5) sec INR (<1.2) APTT (22.0-30.0) sec D-Dimer (<0.60) mg/L FEU Sodium (137-145) mmol/L Potassium (3.5-5.1) mmol/L Chloride (98-107) mmol/L Carbon Dioxide (22-30) mmol/L Anion Gap mmol/L BUN (9-20) mg/dL Creatinine (0.66-1.25) mg/dL Est GFR (CKD-EPI)AfAm (>60 ml/min/1.73 sqM) Est GFR (CKD-EPI)NonAf (>60 ml/min/1.73 sqM) Glucose (74-99) mg/dL Lactic Ac Sepsis Rflx Y Plasma Lactic Acid Rodolfo (0.7-2.0) mmol/L Calcium (8.4-10.2) mg/dL Total Bilirubin (0.2-1.3) mg/dL AST (17-59) U/L ALT (4-49) U/L Alkaline Phosphatase (38-126) U/L Troponin I (0.000-0.034) ng/mL Total Protein (6.3-8.2) g/dL Albumin (3.5-5.0) g/dL Influenza Type A (PCR) (Not Detectd) Influenza Type B (PCR) (Not Detectd) RSV (PCR) (Not Detectd) SARS-CoV-2 (PCR) (Not Detectd) Disposition Clinical Impression: Allergy to multiple antibiotics, Acute respiratory insufficiency, Pyrexia, Tachycardia Disposition: ADMITTED IP TO THIS HOSP Condition: Stable Is patient prescribed a controlled substance at d/c from ED?: No Referrals: Rip Granados MD [Primary Care Provider] - 1-2 days Time of Disposition: 22:55 Decision to Admit Reason: Admit from EC Decision Date: 10/19/24 Decision Time: 22:55
[2024-10-19] MEDS: ACETAMINOPHEN TAB 500 MG TAB PO STA (20:58)
[2024-10-19 21:01] LABS: Influenza A Not Detected (Not Detectd); Influenza B Not Detected (Not Detectd); RSV Not Detected (Not Detectd)
--- NOTE | 2024-10-19 21:43 | CT ---
EXAMINATION TYPE: CT chest angio for PE DATE OF EXAM: 10/19/2024 9:24 PM COMPARISON: r CLINICAL INDICATION: Male, 74 years old with history of sob, tachy, elevated d-dimer, SOB, tachycardi a and elevated dimer, TECHNIQUE: CT of the chest is performed on a spiral scan at 2 mm thick sections. Study is performed with intravenous contrast timed for evaluation for pulmonary embolism. This will limit additional po rtions of the evaluation. 10mm MIP images reconstructed by the technologist are reviewed on the comp uter in the coronal and sagittal planes. Contrast used:100ml mL of Isovue 370 with IV Contrast, (none if empty) Oral contrast used: (none if empty) CT DLP: 491.7 mGycm, Automated exposure control for dose reduction was used. FINDINGS: No persistent filling defects are evident to suggest an acute pulmonary embolism. No mediastinal or hilar adenopathy enlarged by CT criteria is evident. The ascending aorta diameter at the level of the main pulmonary artery is 3.5 cm. The main pulmonary artery diameter at the bifurcation is 0.9 cm. Lung windows are clear. No significant coronary artery calcifications. Limited CT sections were through the upper abdomen. Subtle small gallstones are present IMPRESSION: 1. No acute pulmonary embolism. 2. No acute pulmonary process. 3. Minimal gallstones present [facility], , 10/19/2024 9:41 PM
[2024-10-19] MEDS: IPRATROPIUM-ALBUTEROL 3 ML NEB INHALATION STA (22:52)
[2024-10-19] MEDS ORDERED: NALOXONE 0.4 MG/ML 1 ML VIAL IV PRN (22:55)
[2024-10-19] MEDS ORDERED: DEXTROSE 50% SYRINGE 50 ML IVP PRN ×2 (23:05)
[2024-10-19 23:36] LABS: Glucose,Whole Blood 282 mg/dL (70-110)
[2024-10-20] MEDS: LACTATED RINGERS 1,000 ML IV SCH (00:09)
[2024-10-20] MEDS: hydrALAZINE HCL 50 MG TAB PO SCH (00:25)
[2024-10-20] MEDS: GABAPENTIN 300 MG CAP PO SCH (00:31)
[2024-10-20] MEDS: LORATADINE 10 MG TAB PO SCH (00:31)
[2024-10-20] MEDS: CLOPIDOGREL 75 MG TAB PO SCH (00:31)
[2024-10-20] MEDS: ASPIRIN 81 MG PO SCH (00:31)
[2024-10-20] MEDS: TAMSULOSIN 0.4 MG CAP.ER.24H PO SCH (00:32)
[2024-10-20] MEDS: ATORVASTATIN 80 MG TAB PO SCH (00:32)
[2024-10-20] MEDS ORDERED: VANCOMYCIN IV PER PHARMACY 1 EACH MISC MISCELLANE PRN (00:38)
--- NOTE | 2024-10-20 00:41 | P.HPIM ---
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 He was seen and evaluated in this facility 1 month ago due to pain in his left wrist and there was concern for possible septic arthritis, which was later ruled out by orthopedic surgery. When seen at bedside, his is present as well, states that he had sudden onset shortness of breath today where he reported "he just did not feel well" and became so short of breath he could not breathe. He does endorse having had "a few" of these episodes over the past few weeks, however for those episodes he states that he would step outside and take a few deep breaths which would resolve the issue. His noted that she feels as though these episodes may stem from when he has pain control patches are not replaced in a timely manner, or possibly withdrawal from the fentanyl patch not being replaced on time. Additionally, he and she both know that with increased stress they have noticed that occurring more. Additionally, he notes having had worsening fatigue over the past few months, stating that some days he has difficulty even getting out of bed. He does endorse intermittent feeling of chills which predates this acute episode, as well as a poor appetite and weight loss - however he has been taking Mounjaro, he is unsure whether the weight loss and appetite is solely because of the medication. Denies any nausea, vomiting, abdominal pain, diarrhea, change in bowel or urinary habits. Social history: - Smoking: ~30-year history of 2 pack/day smoking, quit approximately 30 years ago - Alcohol use: Denies - Recreational drug use: Denies Labratory review: - WBCs 12.7, hemoglobin 11.9, hematocrit 36.8, platelet 227; sodium 137, potassium 4.1, bicarb 21, BUN 15, creatinine 0.96, lactic acid 2.2, calcium 9.9, total bilirubin 0.6, AST 26, ALT 26, alkaline phosphatase 111 - Troponin 0.026; D-dimer 1.30 - Respiratory viral panel all negative Imaging: - Chest x-ray done in the ER independently read and interpreted shows no acute cardiopulmonary process - CTA chest shows no acute pulmonary embolism and no acute pulmonary process - EKG done in the ER independently read and interpreted showed heart rate of 133, sinus tachycardia, QTc 361 Vitals: - On arrival: Temp 100.1 F, blood pressure 153/72, heart rate 140, respiratory rate 22, SpO2 95% on room air - Most recently: Temperature 100.0 F, blood pressure 128/63, heart rate 115, respiratory 18, SpO2 96% on 2 L nasal cannula Patient admitted to internal medicine service REVIEW OF SYSTEMS: Pertinent positives and negatives noted in HPI. The rest of the 14-point review of systems is negative. Physical Exam: General: nontoxic, no distress, appears at stated age Derm: warm, dry, intact Head: atraumatic, normocephalic, symmetric Eyes: EOMI, anicteric sclera Mouth: no lip lesion, mucus membranes moist; edentulism Cardiovascular: S1 S2 reg, no murmur, rubs, or gallops Lungs: CTA bilateral, no rales, no accessory muscle use Abdominal: soft, non-tender to palpataion, no appreciable organomegaly Extremities: no gross muscle atrophy, no edema, no contractures Neuro: Alert, Oriented, CNII-XII grossly intact, gait normal Psych: well appearing, appropriate affect Assessment and plan 74-year-old man with PMH of CAD s/p stent placement, hypertension, hyp erlipidemia, alz-[id number] diabetes mellitus who presents to the emergency department after having sudden onset shortness [place] #Sepsis w/no obvious signs of infection #Acute hypoxic respiratory failure, secondary to above #Lactic acidosis, resolved - WBCs 12.69, heart rate 140, lactic acid 2.2 -> 1.8 - Blood culture, urinalysis with reflex to culture ordered, currently pending - CRP, ESR ordered, currently pending - Vancomyci, cefepime and flagyl for broad spectrum coverage without known infection source - not zosyn d/t patient penicillin allergy - Episodes of tachypnea and feeling short of breath with good SpO2 - Has been placed on 2 L of cannula for comfort - Titrate off O2 as possible, maintaining SpO2 > 90% - XR Left wrist ordered, arthrocentesis attempt 1 month prior, without known source of infection - denies any pain or tenderness - CT Abd/Pelvis w/contrast ordered, currently pending - Maintain on LR at 125 cc/h #Chronic, prolonged worsening fatigue - Vitamin D, vitamin B12, folic acid, TSH, morning cortisol level ordered, currently pending #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 - Hold oral medications - Accu-Cheks ACHS - Sliding scale Q6H - Patient has severe allergic reaction to Lantus, utilizes Tresiba FlexTouch pen at home - Most recent hemoglobin A1c from 09/16/24 9.3% - Monitor for hypoglycemia - Continue home gabapentin 900 mg 3 times daily Chronic conditions: #CAD s/p stenting #Hypertension #Hyperlipidemia #Chronic back pain w/neurostimulator - Continue home medications once verified by pharmacy GI prophylaxis: None DVT prophylaxis: Lovenox 40 mg subcu daily The patient is admitted with an anticipated more than than 2 midnight stay for evaluation of acute hypoxic respiratory failure and sepsis. CODE STATUS: Full code Discussed with: Patient and Anticipated discharge place: Home Dictation was produced using Thumb dictation software. please excuse any grammatical, word or spelling errors. Santana Rogel MD PGY-1 Attestation : Patient seen and examined with medical technologist generalist Dr. Rogel. Agree with above assessment and plan. Patient is a 74-year-old with past medical history as mentioned above. He was seen and evaluated recently for left wrist questionable septic arthritis versus pseudogout. He was seen by orthopedic surgery where they had to attempt an arthrocentesis for fluid drainage but not enough fluid . Patient presents today with complaints of shortness of breath associated with chills and not feeling well. Upon arrival to the ED, patient was spiking fevers. He does have leukocytosis and lactic acidosis. Patient met sepsis criteria. Workup so far has been negative and not remarkable. Pending CT abdomen pelvis with contrast. Will consult infectious disease and keep patient on broad-spectrum antibiotics. CT angio of the chest was not remarkable. Patient does have a neurostimulator at his back but no significant tenderness and complaints by patient . Pending 2 sets of blood culture Time spent : 55 min Past Medical History Past Medical History: Cancer, CVA/TIA, Diabetes Mellitus, Hyperlipidemia, Hypertension, Myocardial Infarction (MS), Osteoarthritis (OA), Skin Disorder Additional Past Medical History / Comment(s): sinus infections; Pt has itchiness from medications, recent cardiac testing for procedure. hx skin cancer on eyebrow, treated. TIA x2 no residuals. hx of vertigo 05/2021. MS x 7 Last Myocardial Infarction Date:: 2017 History of Any Multi-Drug Resistant Organisms: None Reported Past Surgical History: Appendectomy, Back Surgery, Heart Catheterization With Stent, Orthopedic Surgery, Tonsillectomy Additional Past Surgical History / Comment(s): Pain stimulator in lower back, electrodes in upper back. Left knee repair ACL and meniscus tear, L rotator cuff x2, trigger point injections in shoulders Past Anesthesia/Blood Transfusion Reactions: No Reported Reaction Date of Last Stent Placement:: 2017 Past Psychological History: No Psychological Hx Reported Smoking Status: Former smoker Past Alcohol Use History: None Reported Past Drug Use History: None Reported - Past Family History Mother Family Medical History: Cancer, Congestive Heart Failure (CHF), Diabetes Mellitus, Hyperlipidemia, Hypertension Additional Family Medical History / Comment(s): breast cancer Father Family Medical History: Coronary Artery Disease (CAD), Hyperlipidemia, Hypertension Additional Family Medical History / Comment(s): pacemaker and AICD, ALS Medications and Allergies Home Medications Medication Instructions Recorded Confirmed Type Aspirin [Adult Low Dose Aspirin EC] 81 mg PO HS 01/14/20 09/14/24 History Atorvastatin [Lipitor] 80 mg PO HS 01/14/20 09/14/24 History Cetirizine HCl [Zyrtec] 10 mg PO HS 01/14/20 09/14/24 History Clopidogrel [Plavix] 75 mg PO HS 01/14/20 09/14/24 History Lidocaine 5% Patch [Lidoderm 5% 1 patch TOPICAL DAILY 01/14/20 09/14/24 History Patch] Tamsulosin [Flomax] 0.4 mg PO HS 01/14/20 09/14/24 History metFORMIN HCL [Glucophage] 1,000 mg PO BID-W/MEALS 01/14/20 09/14/24 History Losartan Potassium 100 mg PO DAILY 07/22/23 09/14/24 History Albuterol Inhaler [Ventolin Hfa 2 puff INHALATION RT-Q4H PRN 09/14/24 09/14/24 History Inhaler] Ergocalciferol (Vitamin D2) 1,250 mcg PO Q14D 09/14/24 09/14/24 History [Drisdol (50,000 Iu)] Gabapentin [Neurontin] 900 mg PO TID 09/14/24 09/14/24 History HYDROmorphone [Dilaudid] 4 mg PO BID 09/14/24 09/14/24 History Insulin Degludec [Tresiba 80 units SQ HS 09/14/24 09/14/24 History Flextouch U-200 Pen] Linaclotide [Linzess] 145 mcg PO DAILY PRN 09/14/24 09/14/24 History fentaNYL 50MCG/HR PATCH [Duragesic 1 patch TRANSDERM Q72H 09/14/24 09/14/24 History 50MCG/HR] predniSONE [Deltasone] 40 mg PO DAILY #10 tab 09/14/24 Rx sitaGLIPtin [Januvia] 100 mg PO DIRECTED 09/14/24 09/14/24 History Tirzepatide [Mounjaro] 2.5 mg SQ WE 09/15/24 09/15/24 History Colchicine [Colcrys] 0.6 mg PO BID 7 Days #14 each 09/20/24 Rx Ibuprofen [Motrin] 800 mg PO Q6HR PRN #30 tab 09/20/24 Rx Metoprolol Succinate (ER) [Toprol 100 mg PO DAILY #30 tab 09/20/24 Rx XL] hydrALAZINE HCL [Apresoline] 50 mg PO TID 30 Days #90 tab 09/20/24 Rx Allergies Allergy/AdvReac Type Severity Reaction Status Date / Time SAMINA Inhibitors Allergy Rash/Hives Verified 10/19/24 19:58 acetaminophen [From Percocet] Allergy Itching Verified 10/19/24 19:58 ARB-Angiotensin Receptor Allergy Rash/Hives Verified 10/19/24 19:58 Antagonist bacitracin Allergy Rash/Hives Verified 10/19/24 19:58 [From Neosporin ([id number])] cephalexin [From Keflex] Allergy Rash/Hives Verified 10/19/24 19:58 insulin glargine Allergy Swelling Verified 10/19/24 19:58 [From Lantus U-100 Insulin] neomycin Allergy Rash/Hives Verified 10/19/24 19:58 [From Neosporin ([id number])] oxycodone [From Percocet] Allergy Itching Verified 10/19/24 19:58 Penicillins Allergy Rash/Hives Verified 10/19/24 19:58 polymyxin B Allergy Rash/Hives Verified 10/19/24 19:58 [From Neosporin ([id number])] Physical Exam Vitals: Vital Signs Temp Pulse Resp BP Pulse Ox 10/19/24 23:00 10 L 18 10/19/24 22:54 104 H 18 10/19/24 22:05 100.0 F H 115 H 18 128/63 96 10/19/24 21:01 129 H 18 152/71 95 10/19/24 20:08 100.4 F H 10/19/24 20:06 28 H 10/19/24 19:56 100.1 F H 140 H 22 153/72 95 Intake and Output 10/19/24 10/19/24 10/20/24 14:59 22:59 06:59 Other: Weight 99.337 kg Results CBC & Chem 7: 10/20/24 03:06 10/20/24 03:06 Labs: Abnormal Lab Results - Last 24 Hours (Table) 10/19/24 10/19/24 10/19/24 Range/Units 20:09 20:09 20:09 WBC 12.69 H (4.50-10.00) 10*3/uL RBC 4.32 L (4.40-5.60) 10*6/uL Hgb 11.9 L (13.0-17.0) g/dL Hct 36.8 L (39.6-50.0) % Neutrophils # 11.21 H (1.80-7.70) 10*3/uL Lymphocytes # 0.50 L (0.90-5.00) 10*3/uL D-Dimer 1.30 H (<0.60) mg/L FEU Carbon Dioxide 21 L (22-30) mmol/L Glucose 252 H (74-99) mg/dL Plasma Lactic Acid Rodolfo (0.7-2.0) mmol/L 10/19/24 Range/Units 20:09 WBC (4.50-10.00) 10*3/uL RBC (4.40-5.60) 10*6/uL Hgb (13.0-17.0) g/dL Hct (39.6-50.0) % Neutrophils # (1.80-7.70) 10*3/uL Lymphocytes # (0.90-5.00) 10*3/uL D-Dimer (<0.60) mg/L FEU Carbon Dioxide (22-30) mmol/L Glucose (74-99) mg/dL Plasma Lactic Acid Rodolfo 2.2 H* (0.7-2.0) mmol/L
[2024-10-20] MEDS ORDERED: CEFEPIME 2 GM in SODIUM CHLORIDE 0.9% 100 ML IVPB SCH (00:45)
[2024-10-20] MEDS: VANCOMYCIN 2,000 MG in SODIUM CHLORIDE 0.9% 500 ML 500 ML IVPB ONE (01:39)
[2024-10-20] MEDS: HYDROmorphone 2 MG TAB PO SCH (01:39)
[2024-10-20 02:08] LABS: Appearance,Urine Clear (Clear); Bilirubin,Urine Negative (Negative); Blood,Urine Negative (Negative); Color,Urine Colorless; Glucose,Urine (UA) 4+ (Negative); Ketones,Urine Negative (Negative); Leukocyte Esterase,Urine Negative (Negative); Nitrite,Urine Negative (Negative); PH, Urine 5.5 (5.0-8.0); Protein,Urine Negative (Negative); Urobilinogen,Urine <2.0 mg/dL (<2.0)
[2024-10-20] MEDS: metFORMIN 500 MG TAB PO SCH (02:14)
[2024-10-20] MEDS: INSULIN DEGLUDEC SQ SCH (02:15)
[2024-10-20 02:16] LABS: Specific Gravity,Urine 1.049 (1.001-1.035)
[2024-10-20] MEDS: SODIUM CHLORIDE 0.9% 1,000 ML IV SCH (02:16)
[2024-10-20] MEDS: INSULIN LISPRO (HumaLOG) 100 UNIT/ML 10 mL VL SQ SCH ×4 (02:16→12:24)
[2024-10-20 02:49] LABS: Glucose,Whole Blood 192 mg/dL (70-110)
[2024-10-20 03:25] LABS: Basophils # (A) 0.01 10*3/uL (0.00-0.10); Basophils % (A) 0.1 %; Eosinophils # (A) 0.27 10*3/uL (0.04-0.35); Eosinophils % (A) 2.5 %; HCT 34.1 % (39.6-50.0); HGB 10.9 g/dL (13.0-17.0); Lymphocytes # (A) 0.55 10*3/uL (0.90-5.00); Lymphocytes % (A) 5.1 %; MCH 28.1 pg (27.0-32.0); MCV 87.9 fL (80.0-97.0); Monocytes % (A) 7.5 %; Neutrophils # (A) 9.07 10*3/uL (1.80-7.70); Neutrophils % (A) 84.5 %; Platelet Count 216 10*3/uL (140-440); RBC 3.88 10*6/uL (4.40-5.60); RDW 14.7 % (11.5-14.5); WBC 10.73 10*3/uL (4.50-10.00)
[2024-10-20 03:36] LABS: African American GFR (CKD) 89 (>60 ml/min/1.73 sqM); Anion Gap 8 mmol/L; Blood Urea Nitrogen 17 mg/dL (9-20); Calcium 10.1 mg/dL (8.4-10.2); Carbon Dioxide 28 mmol/L (22-30); Chloride 102 mmol/L (98-107); Glucose 165 mg/dL (74-99); Non-African American GFR(CKD) 77 (>60 ml/min/1.73 sqM); Potassium 4.1 mmol/L (3.5-5.1); Sodium 138 mmol/L (137-145)
[2024-10-20] MEDS: metroNIDAZOLE-NS PMX 500 MG in SALINE 1 100ML.BAG IVPB SCH (04:35)
[2024-10-20 06:16] LABS: Glucose,Whole Blood 148 mg/dL (70-110)
--- NOTE | 2024-10-20 07:18 | XR ---
EXAMINATION TYPE: XR wrist complete LT DATE OF EXAM: 10/20/2024 12:52 AM COMPARISON: None. CLINICAL INDICATION: Male, 74 years old with history of arthrocentesis one month prior, now septic w/ o giovany, pain TECHNIQUE: 3 view(s) obtained. FINDINGS: No acute fracture or dislocation evident. There is some change along the medial aspect of the lunate which was present previously. Some cortical erosion at this level is not excluded. Remaining osseous structures appear intact. Catheter is present on the distal forearm. IMPRESSION: 1. There may be some stable mild lucency along the medial aspect of the lunate. Underlying osteomyel itis is not excluded. MRI or three-phase bone scan can be performed for sufficient clinical suspicion . [facility], , 10/20/2024 7:16 AM
[2024-10-20] MEDS: ENOXAPARIN 40 MG/0.4 ML SYRINGE SQ SCH (08:39)
[2024-10-20] MEDS: IBUPROFEN 400 MG TAB PO PRN (08:39)
[2024-10-20] MEDS: LIDOCAINE 4% PATCH TOPICAL SCH (08:39)
[2024-10-20] MEDS: IPRATROPIUM-ALBUTEROL 3 ML NEB INHALATION SCH ×2 (08:44→08:45)
[2024-10-20 11:24] LABS: Glucose,Whole Blood 210 mg/dL (70-110)
--- NOTE | 2024-10-20 13:44 | P.PN ---
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 He was seen and evaluated in this facility 1 month ago due to pain in his left wrist and there was concern for possible septic arthritis, which was later ruled out by orthopedic surgery. When seen at bedside, his is present as well, states that he had sudden onset shortness of breath today where he reported "he just did not feel well" and became so short of breath he could not breathe. He does endorse having had "a few" of these episodes over the past few weeks, however for those episodes he states that he would step outside and take a few deep breaths which would resolve the issue. His noted that she feels as though these episodes may stem from when he has pain control patches are not replaced in a timely manner, or possibly withdrawal from the fentanyl patch not being replaced on time. Additionally, he and she both know that with increased stress they have noticed that occurring more. Additionally, he notes having had worsening fatigue over the past few months, stating that some days he has difficulty even getting out of bed. He does endorse intermittent feeling of chills which predates this acute episode, as well as a poor appetite and weight loss - however he has been taking Mounjaro, he is unsure whether the weight loss and appetite is solely because of the medication. Denies any nausea, vomiting, abdominal pain, diarrhea, change in bowel or urinary habits. In the ER he was febrile up to 100.1, tachycardic in the 140s, SpO2 95% on room air, BP stable, lab work revealed leukocytosis 12.7, lactic acid 2.2, D-dimer 1.3, Cepheid negative, chest x-ray no acute process, CTA chest no acute PE or pulmonary process, EKG showed sinus tachycardia. Patient was admitted for further management of sepsis with unknown source, started on vancomycin, cefepime, Flagyl. CT abdomen pelvis ordered and pending, blood cultures obtained and pending. ID consulted, 10/20/2024: Seen and examined at bedside, patient was sweaty, hot to touch. Temperature 101.3, tachycardic in 100s, BP 150/67. Maintained on 2 L SpO2 98%. WBC down to 10.7, neutrophil predominance, kidney function normal, electrolytes normal, vitamin D 27.6, will start on vitamin D supplements, folate 19.5, TSH 0.4, B12 560. MRSA swab and procalcitonin. UA negative for UTI. Patient complains of feeling sick, cannot specify, denies shortness of breath, chest pain, abdominal pain, skin rashes, wounds, joint pain, sinus pain or pressure, ear pain, nasal or ear drainage. Left wrist x-ray showed mild lucency along the medial aspect of the lunate. Patient cannot undergo MRI due to stimulator present. Pertinent Imaging: As above Pertinent positives and negatives as discussed above, a complete review of systems was performed and all other systems are negative. Vitals Signs Reviewed. General: [nontoxic], [no distress], [appears at stated age], diaphoretic, hot to touch Derm: [warm], [dry] Head: [atraumatic], [normocephalic], [symmetric] Eyes: [EOMI], [no lid lag], [anicteric sclera] Mouth: [no lip lesion], [mucus membranes moist] Cardiovascular: [S1S2 reg], [no murmur] Lungs: [CTA bilateral], [no rhonchi, no rales] , [no accessory muscle use] Abdominal: [soft], [ nontender to palpation], [no guarding], [no appreciable organomegaly] Ext: [no gross muscle atrophy], [no edema], [no contractures] Neuro: [ CN II-XI grossly intact], [no focal neuro deficits] Psych: [Alert], [oriented], [appropriate affect] Assessment and Plan: Sepsis w/no obvious signs of infection Sinus tachycardia secondary to above Dyspnea without hypoxia Lactic acidosis, resolved - Blood culture, urine cultures pending - CRP and ESR normal, - Vancomyci, levofloxacin 715 daily and flagyl for broad spectrum coverage without known infection source - not zosyn d/t patient penicillin allergy, SOT 10/19 - Has been placed on 2 L of cannula for comfort - Titrate off O2 as possible, maintaining SpO2 > 90% - XR Left wrist ordered, arthrocentesis attempt 1 month prior, without known source of infection - denies any pain or tenderness - CT Abd/Pelvis w/contrast ordered, currently pending - Decrease LR to 75 cc -Left wrist x-ray showed mild lucency along the medial aspect of the lunate. Patient cannot undergo MRI due to stimulator present. 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 nightly, metoprolol 50 mg p.o. daily hydralazine 50 show TSH, Dilaudid 4 mg p.o. twice daily, lidocaine patch, fentanyl patch 75 q72 hours DVT prophylaxis: Lovenox 40 mg subcu daily CODE STATUS: Full code Anticipated discharge place: Home Objective - Vital Signs Vital signs: Vital Signs Temp 101.3 F H 10/20/24 08:00 Pulse 100 10/20/24 11:59 Resp 20 10/20/24 08:00 BP 150/67 10/20/24 08:00 Pulse Ox 98 10/20/24 08:00 FiO2 Intake & Output 10/19/24 10/20/24 10/20/24 18:59 06:59 18:59 Weight 99.337 kg - Labs CBC & Chem 7: 10/20/24 03:06 10/20/24 03:06 Labs: Abnormal Lab Results - Last 24 Hours (Table) 10/19/24 10/19/24 10/19/24 Range/Units 20:09 20:09 20:09 WBC 12.69 H (4.50-10.00) 10*3/uL RBC 4.32 L (4.40-5.60) 10*6/uL Hgb 11.9 L (13.0-17.0) g/dL Hct 36.8 L (39.6-50.0) % Neutrophils # 11.21 H (1.80-7.70) 10*3/uL Lymphocytes # 0.50 L (0.90-5.00) 10*3/uL D-Dimer 1.30 H (<0.60) mg/L FEU Carbon Dioxide 21 L (22-30) mmol/L Glucose 252 H (74-99) mg/dL POC Glucose (mg/dL) (70-110) mg/dL Plasma Lactic Acid Rodolfo (0.7-2.0) mmol/L Vitamin D 25-Hydroxy (30.0-100.0) ng/mL Ur Specific [place] (1.001-1.035) Urine Glucose (UA) (Negative) 10/19/24 10/19/24 10/20/24 Range/Units 20:09 23:35 01:50 WBC (4.50-10.00) 10*3/uL RBC (4.40-5.60) 10*6/uL Hgb (13.0-17.0) g/dL Hct (39.6-50.0) % Neutrophils # (1.80-7.70) 10*3/uL Lymphocytes # (0.90-5.00) 10*3/uL D-Dimer (<0.60) mg/L FEU Carbon Dioxide (22-30) mmol/L Glucose (74-99) mg/dL POC Glucose (mg/dL) 282 H (70-110) mg/dL Plasma Lactic Acid Rodolfo 2.2 H* (0.7-2.0) mmol/L Vitamin D 25-Hydroxy (30.0-100.0) ng/mL Ur Specific [place] 1.049 H (1.001-1.035) Urine Glucose (UA) 4+ H (Negative) 10/20/24 10/20/24 10/20/24 Range/Units 02:47 03:06 03:06 WBC 10.73 H (4.50-10.00) 10*3/uL RBC 3.88 L (4.40-5.60) 10*6/uL Hgb 10.9 L (13.0-17.0) g/dL Hct 34.1 L (39.6-50.0) % Neutrophils # 9.07 H (1.80-7.70) 10*3/uL Lymphocytes # 0.55 L (0.90-5.00) 10*3/uL D-Dimer (<0.60) mg/L FEU Carbon Dioxide (22-30) mmol/L Glucose 165 H (74-99) mg/dL POC Glucose (mg/dL) 192 H (70-110) mg/dL Plasma Lactic Acid Rodolfo (0.7-2.0) mmol/L Vitamin D 25-Hydroxy (30.0-100.0) ng/mL Ur Specific [place] (1.001-1.035) Urine Glucose (UA) (Negative) 10/20/24 10/20/24 10/20/24 Range/Units 03:06 06:14 11:23 WBC (4.50-10.00) 10*3/uL RBC (4.40-5.60) 10*6/uL Hgb (13.0-17.0) g/dL Hct (39.6-50.0) % Neutrophils # (1.80-7.70) 10*3/uL Lymphocytes # (0.90-5.00) 10*3/uL D-Dimer (<0.60) mg/L FEU Carbon Dioxide (22-30) mmol/L Glucose (74-99) mg/dL POC Glucose (mg/dL) 148 H 210 H (70-110) mg/dL Plasma Lactic Acid Rodolfo (0.7-2.0) mmol/L Vitamin D 25-Hydroxy 27.6 L (30.0-100.0) ng/mL Ur Specific [place] (1.001-1.035) Urine Glucose (UA) (Negative)
[2024-10-20] MEDS ORDERED: VANCOMYCIN 1,750 MG in SODIUM CHLORIDE 0.9% 500 ML 500 ML IVPB SCH (14:00)
[2024-10-20] MEDS: ERGOCALCIFEROL 1,250 MCG (50,000 IU) CAPSULE PO SCH (16:22)
[2024-10-20 17:07] LABS: Glucose,Whole Blood 328 mg/dL (70-110)
[2024-10-20] MEDS: IOPAMIDOL CONTRAST (ORAL USE) VIAL PO PRN (20:27)
[2024-10-20 21:10] LABS: Glucose,Whole Blood 143 mg/dL (70-110)
--- NOTE | 2024-10-20 22:35 | P.CONS ---
History of Present Illness - Reason for Consult Consult date: 10/20/24 Sepsis of unknown source Requesting physician: Dennis Rogel - Chief Complaint Shortness of breath x 1 day - History of Present Illness Patient is a 74-year-old male with a past medical history significant for diabetes mellitus hypertension hyperlipidemia ME CVA TIA was brought into the hospital concerning for increasing shortness of breath patient shortness of breath with exertion even at rest with associated palpitation patient did have some cough but not bringing up any sputum patient denies any headache or URI symptoms some nausea but no vomiting has been complaining of some pain in the left lower quadrant area but denies having any diarrhea. Patient had no urinary symptoms on presentation to the hospital patient did have a low-grade fever of 100.1 F with a temperature of 101.3 F this morning patient was tachycardic but not hypotensive mildly hypoxic currently on 2 L nasal cannula oxygen patient did have a elevated white count 12.69 with a left shift creatinine has been normal liver isms are normal urine has been negative influenza RSV COVID testing was negative patient did have a chest x-ray no acute pulmonary process he did have a CT angiogram of the chest did not mention any pneumonia minimal gallstone present patient was admitted to the hospital infectious disease was consulted because of sepsis unknown source patient is currently Levaquin Flagyl and vancomycin Review of Systems Positive point and negatives has been mentioned in the HPI, complete review of systems was performed and all other systems are negative Past Medical History Past Medical History: Cancer, CVA/TIA, Diabetes Mellitus, Hyperlipidemia, Hypertension, Myocardial Infarction (ME), Osteoarthritis (OA), Skin Disorder Additional Past Medical History / Comment(s): sinus infections; Pt has itchiness from medications, recent cardiac testing for procedure. hx skin cancer on eyebrow, treated. TIA x2 no residuals. hx of vertigo 05/2021. ME x 7 Last Myocardial Infarction Date:: 2017 History of Any Multi-Drug Resistant Organisms: None Reported Past Surgical History: Appendectomy, Back Surgery, Heart Catheterization With Stent, Orthopedic Surgery, Tonsillectomy Additional Past Surgical History / Comment(s): Pain stimulator in lower back, electrodes in upper back. Left knee repair ACL and meniscus tear, L rotator cuff x2, trigger point injections in shoulders Past Anesthesia/Blood Transfusion Reactions: No Reported Reaction Date of Last Stent Placement:: 2017 Past Psychological History: No Psychological Hx Reported Smoking Status: Former smoker Past Alcohol Use History: None Reported Past Drug Use History: None Reported - Past Family History Mother Family Medical History: Cancer, Congestive Heart Failure (CHF), Diabetes Mellitus, Hyperlipidemia, Hypertension Additional Family Medical History / Comment(s): breast cancer Father Family Medical History: Coronary Artery Disease (CAD), Hyperlipidemia, Hypertension Additional Family Medical History / Comment(s): pacemaker and AICD, ALS Medications and Allergies Home Medications Medication Instructions Recorded Confirmed Type Aspirin [Adult Low Dose Aspirin EC] 81 mg PO HS 01/14/20 10/20/24 History Atorvastatin [Lipitor] 80 mg PO HS 01/14/20 10/20/24 History Cetirizine HCl [Zyrtec] 10 mg PO HS 01/14/20 10/20/24 History Clopidogrel [Plavix] 75 mg PO HS 01/14/20 10/20/24 History Lidocaine 5% Patch [Lidoderm 5% 1 patch TRANSDERM DAILY 01/14/20 10/20/24 Hi story Patch] Tamsulosin [Flomax] 0.4 mg PO HS 01/14/20 10/20/24 History metFORMIN HCL [Glucophage] 1,000 mg PO BID-W/MEALS 01/14/20 10/20/24 History Albuterol Inhaler [Ventolin Hfa 2 puff INHALATION RT-Q4H PRN 09/14/24 10/20/24 History Inhaler] Ergocalciferol (Vitamin D2) 1,250 mcg PO Q14D 09/14/24 10/20/24 History [Drisdol (50,000 Iu)] Gabapentin [Neurontin] 900 mg PO TID 09/14/24 10/20/24 History HYDROmorphone [Dilaudid] 4 mg PO BID 09/14/24 10/20/24 History Insulin Degludec [Tresiba 70 units SQ HS 09/14/24 10/20/24 History Flextouch U-200 Pen] Linaclotide [Linzess] 145 mcg PO DAILY PRN 09/14/24 10/20/24 History Tirzepatide [Mounjaro] 2.5 mg SQ TH 09/15/24 10/20/24 History Ibuprofen [Motrin] 800 mg PO Q6HR PRN #30 tab 09/20/24 10/20/24 Rx hydrALAZINE HCL [Apresoline] 50 mg PO TID 30 Days #90 tab 09/20/24 10/20/24 Rx Dapagliflozin Propanediol [Farxiga] 10 mg PO DAILY 10/20/24 10/20/24 History Metoprolol Succinate (ER) [Toprol 50 mg PO DAILY 10/20/24 10/20/24 History Xl] fentaNYL 75MCG/HR PATCH [Duragesic 1 patch TRANSDERM Q3D@0900 10/20/24 10/20/24 History 75MCG/HR] Allergies Allergy/AdvReac Type Severity Reaction Status Date / Time SAMINA Inhibitors Allergy Rash/Hives Verified 10/20/24 09:02 acetaminophen [From Percocet] Allergy Itching Verified 10/20/24 09:02 ARB-Angiotensin Receptor Allergy Rash/Hives Verified 10/20/24 09:02 Antagonist bacitracin Allergy Rash/Hives Verified 10/20/24 09:02 [From Neosporin ([id number])] cephalexin [From Keflex] Allergy Rash/Hives Verified 10/20/24 09:02 insulin glargine Allergy Swelling Verified 10/20/24 09:02 [From Lantus U-100 Insulin] neomycin Allergy Rash/Hives Verified 10/20/24 09:02 [From Neosporin ([id number])] oxycodone [From Percocet] Allergy Itching Verified 10/20/24 09:02 Penicillins Allergy Rash/Hives Verified 10/20/24 09:02 polymyxin B Allergy Rash/Hives Verified 10/20/24 09:02 [From Neosporin ([id number])] Physical Exam Vitals: Vital Signs Temp Pulse Pulse Resp BP BP Pulse Ox 10/20/24 11:50 106 H 10/20/24 09:01 98 10/20/24 08:45 104 H 10/20/24 08:00 101.3 F H 99 20 150/67 98 10/20/24 02:46 98.4 F 90 17 132/66 98 10/20/24 02:06 92 18 123/58 96 10/20/24 00:36 98.2 F 101 H 16 105/48 98 10/19/24 23:00 107 H 18 10/19/24 22:54 104 H 18 10/19/24 22:05 100.0 F H 115 H 18 128/63 96 10/19/24 21:01 129 H 18 152/71 95 10/19/24 20:08 100.4 F H 10/19/24 20:06 28 H 10/19/24 19:56 100.1 F H 140 H 22 153/72 95 Intake and Output 10/19/24 10/20/24 10/20/24 22:59 06:59 14:59 Other: Weight 99.337 kg 99.337 kg GENERAL DESCRIPTION: Elderly male lying in bed, no distress. No tachypnea or accessory muscle of respiration use. HEENT: Shows Pallor , no scleral icterus. Oral mucous membrane is dry. No pharyngeal erythema or thrush NECK: Trachea central, no thyromegaly. LUNGS: Unlabored breathing. Clear to auscultation anteriorly. No wheeze or crackle. HEART: S1, S2, regular rate and rhythm. No loud murmur ABDOMEN: Soft, mild left-sided tenderness EXTREMITIES: No edema of feet. SKIN: No rash, no masses palpable. NEUROLOGICAL: The patient is awake, alert, oriented x3, mood and affect normal. Results CBC & Chem 7: 10/20/24 03:06 10/20/24 03:06 Labs: Abnormal Lab Results - Last 24 Hours (Table) 10/19/24 10/19/24 10/19/24 Range/Units 20:09 20:09 20:09 WBC 12.69 H (4.50-10.00) 10*3/uL RBC 4.32 L (4.40-5.60) 10*6/uL Hgb 11.9 L (13.0-17.0) g/dL Hct 36.8 L (39.6-50.0) % Neutrophils # 11.21 H (1.80-7.70) 10*3/uL Lymphocytes # 0.50 L (0.90-5.00) 10*3/uL D-Dimer 1.30 H (<0.60) mg/L FEU Carbon Dioxide 21 L (22-30) mmol/L Glucose 252 H (74-99) mg/dL POC Glucose (mg/dL) (70-110) mg/dL Plasma Lactic Acid Rodolfo (0.7-2.0) mmol/L Vitamin D 25-Hydroxy (30.0-100.0) ng/mL Ur Specific [place] (1.001-1.035) Urine Glucose (UA) (Negative) 10/19/24 10/19/24 10/20/24 Range/Units 20:09 23:35 01:50 WBC (4.50-10.00) 10*3/uL RBC (4.40-5.60) 10*6/uL Hgb (13.0-17.0) g/dL Hct (39.6-50.0) % Neutrophils # (1.80-7.70) 10*3/uL Lymphocytes # (0.90-5.00) 10*3/uL D-Dimer (<0.60) mg/L FEU Carbon Dioxide (22-30) mmol/L Glucose (74-99) mg/dL POC Glucose (mg/dL) 282 H (70-110) mg/dL Plasma Lactic Acid Rodolfo 2.2 H* (0.7-2.0) mmol/L Vitamin D 25-Hydroxy (30.0-100.0) ng/mL Ur Specific [place] 1.049 H (1.001-1.035) Urine Glucose (UA) 4+ H (Negative) 10/20/24 10/20/24 10/20/24 Range/Units 02:47 03:06 03:06 WBC 10.73 H (4.50-10.00) 10*3/uL RBC 3.88 L (4.40-5.60) 10*6/uL Hgb 10.9 L (13.0-17.0) g/dL Hct 34.1 L (39.6-50.0) % Neutrophils # 9.07 H (1.80-7.70) 10*3/uL Lymphocytes # 0.55 L (0.90-5.00) 10*3/uL D-Dimer (<0.60) mg/L FEU Carbon Dioxide (22-30) mmol/L Glucose 165 H (74-99) mg/dL POC Glucose (mg/dL) 192 H (70-110) mg/dL Plasma Lactic Acid Rodolfo (0.7-2.0) mmol/L Vitamin D 25-Hydroxy (30.0-100.0) ng/mL Ur Specific [place] (1.001-1.035) Urine Glucose (UA) (Negative) 10/20/24 10/20/24 10/20/24 Range/Units 03:06 06:14 11:23 WBC (4.50-10.00) 10*3/uL RBC (4.40-5.60) 10*6/uL Hgb (13.0-17.0) g/dL Hct (39.6-50.0) % Neutrophils # (1.80-7.70) 10*3/uL Lymphocytes # (0.90-5.00) 10*3/uL D-Dimer (<0.60) mg/L FEU Carbon Dioxide (22-30) mmol/L Glucose (74-99) mg/dL POC Glucose (mg/dL) 148 H 210 H (70-110) mg/dL Plasma Lactic Acid Rodolfo (0.7-2.0) mmol/L Vitamin D 25-Hydroxy 27.6 L (30.0-100.0) ng/mL Ur Specific [place] (1.001-1.035) Urine Glucose (UA) (Negative) Assessment and Plan (1) Sepsis Current Visit: Yes Status: Acute Code(s): A41.9 - SEPSIS, UNSPECIFIED ORGANISM SNOMED Code(s): 55155910 (2) Allergy to multiple antibiotics Current Visit: Yes Status: Acute Code(s): Z88.1 - ALLERGY STATUS TO OTHER ANTIBIOTIC AGENTS SNOMED Code(s): 247486010 Plan: 1patient presented to hospital with shortness of breath in this patient who did have features of sepsis with fever tachycardia elevated white count but initial workup did not show clear focus of infection with a negative UA chest x-ray and CT has been negative for pneumonia patient with no joint swelling or cellulitis he did have left-sided tenderness on abdominal examination question of abdominal source. 2patient with multiple antibiotic ALLERGIES that would limit the number of antibiotic safe to use. 3we will obtain a CT of abdominal pelvis with contrast to better define un derlying intra-abdominal pathology. 4we will treat with Levaquin and Flagyl however discontinue vancomycin while waiting for the workup to be completed We will follow on clinical condition and cultures to further adjust medication if needed Thank you for this consultation we will follow the patient along with you Dictation was produced using [employer] dictation software. please excuse any grammatical, word or spelling errors. Time with Patient: Greater than 30
[2024-10-20] MEDS: ACETAMINOPHEN TAB 325 MG TAB PO PRN (22:45)
--- NOTE | 2024-10-21 00:20 | CT ---
EXAMINATION TYPE: CT abdomen pelvis w con CT DLP: 1438.8 mGycm, Automated exposure control for dose reduction was used. DATE OF EXAM: 10/20/2024 11:03 PM COMPARISON: CTA chest 10/19/2024, CT abdomen and pelvis 01/25/2024 CLINICAL INDICATION:Male, 74 years old with history of Abdominal pain, fever; Abdominal pain, fever, isovue TECHNIQUE: Standard CT of the abdomen and pelvis following the administration of 100 cc of Isovue 3 00 IV contrast material and oral contrast. Coronal and sagittal reformats were performed. FINDINGS: LOWER CHEST: The visualized lungs are clear. Small aortic valvular calcifications. Moderate coronary arterial calcifications. No pericardial effusion. Mild bilateral gynecomastia. ABDOMEN LIVER: Calcified granuloma within the left hepatic lobe. GALLBLADDER AND BILE DUCTS: Layering increased densities within the lumen consistent with gallstones are present. Hydropic gallbladder measuring 10.4 x [address] evidence for wall thickening or surr ounding fluid. No surrounding inflammatory changes identified. PANCREAS: Unremarkable. SPLEEN: Unremarkable. ADRENAL GLANDS: Unremarkable. KIDNEYS AND URETERS: No evidence of hydronephrosis or renal calculus. The kidneys enhance symmetrical ly. Contrast is demonstrated within both collecting systems on the delayed phase. Nonspecific bilater al perinephric fat stranding. PELVIS BLADDER: Moderately distended. No surrounding fat stranding. REPRODUCTIVE: Prostate is enlarged in size measuring 7.4 cm in transverse dimension. ABDOMEN & PELVIS STOMACH AND BOWEL: Stomach and duodenum are unremarkable. Enteric contrast reaches the mid to distal small bowel. No evidence of bowel obstruction. The appendix is not identified. No focal bowel wall th ickening or surrounding inflammatory changes identified. PERITONEUM: No evidence of pneumoperitoneum or free fluid. VASCULATURE: Moderate atherosclerotic calcifications are present throughout the abdominal aorta and i ts branches. No evidence of aortic aneurysm. Ectasia of the distal abdominal aorta measuring up to 2. 8 cm. MUSCULOSKELETAL: No acute osseous abnormalities. DISH of the lower thoracic spine. Multilevel degener ative disc disease which is most pronounced at L5-S1. Postsurgical changes of L4-S1 spinous process r esection. Degenerative changes of bilateral SI joints with anterior bridging. LYMPH NODES: No evidence for lymphadenopathy. SOFT TISSUE/ABDOMINAL WALL: Small fat filled umbilical hernia. Small fat filled left in the hernia. M oderate sized right inguinal hernia containing fat and nonobstructing small bowel. Enteric contrast i s demonstrated within the small bowel entering and exiting the hernia. Left lower back stimulator dev ice power pack within the subcutaneous fat layer. The single lead courses superiorly within the midli ne back tissues. IMPRESSION: 1. Cholelithiasis with hydropic gallbladder. No CT evidence for inflammatory changes. Consider furth er evaluation with ultrasound if there is concern for acute cholecystitis. 2. Moderate size right inguinal hernia containing fat and nonobstructing small bowel. Additional smal l fat-containing left inguinal hernia. 3. Prostatomegaly. [facility], , 10/21/2024 12:17 AM
[2024-10-21] MEDS: LEVOFLOXACIN 750MG-D5W PMX 750 MG in DEXTROSE/WATER 1 150ML.BAG IVPB SCH (02:26)
[2024-10-21 06:22] LABS: Glucose,Whole Blood 231 mg/dL (70-110)
[2024-10-21 08:22] LABS: Basophils # (A) 0.04 X 10*3/uL (0.00-0.10); Basophils % (A) 0.3 %; Eosinophils # (A) 0.52 X 10*3/uL (0.04-0.35); Eosinophils % (A) 4.4 %; HCT 33.6 % (39.6-50.0); HGB 10.6 g/dL (13.0-17.0); Lymphocytes # (A) 0.99 X 10*3/uL (0.90-5.00); Lymphocytes % (A) 8.4 %; MCH 27.7 pg (27.0-32.0); MCHC 31.5 g/dL (32.0-37.0); Mean Platelet Volume 11.2 FL (9.5-12.2); Monocytes # (A) 1.26 X 10*3/uL (0.20-1.00); Monocytes % (A) 10.7 %; NRBC Per 100 WBC 0 X 10*3/uL (0.00-0.01); Neutrophils # (A) 8.92 X 10*3/uL (1.80-7.70); Neutrophils % (A) 75.8 %; Platelet Count 192 X 10*3/uL (140-440); RBC 3.82 X 10*6/uL (4.40-5.60); RDW 15.1 % (11.5-14.5); WBC 11.78 X 10*3/uL (4.50-10.00)
[2024-10-21] MEDS: METOPROLOL SUCCINATE (ER) 50 MG TAB.ER.24H PO SCH (09:06)
[2024-10-21 10:02] LABS: Glucose,Whole Blood 258 mg/dL (70-110)
[2024-10-21 10:26] LABS: Blood Urea Nitrogen 14.6 mg/dL (9.0-27.0); Calcium 8.8 mg/dL (8.7-10.3); Carbon Dioxide 22.2 mmol/L (21.6-31.8); Chloride 102 mmol/L (96-109); Glucose 206 mg/dL (70-110); Potassium 4.3 mmol/L (3.5-5.5); Sodium 135 mmol/L (135-145)
[2024-10-21 12:37] LABS: Glucose,Whole Blood 199 mg/dL (70-110)
[2024-10-21] MEDS: INSULIN LISPRO (HumaLOG) 100 UNIT/ML 10 mL VL SQ SCH (13:11)
--- NOTE | 2024-10-21 14:38 | US ---
EXAMINATION TYPE: US abdomen limited DATE OF EXAM: 10/21/2024 COMPARISON: NONE CLINICAL INDICATION: Male, 74 years old with history of f/u CT findings; Hx DM; Patient denies any si gns, symptoms, or other relevant history TECHNIQUE: Grayscale and color Doppler imaging of the right upper quadrant was performed. FINDINGS: EXAM MEASUREMENTS: Liver Length: 18.0 cm Gallbladder Wall: 0.3 cm CBD: 0.5 cm Right Kidney: 12.3 x 5.6 x 5.2 cm CANCER PROGRAM CONSULTANT NOTES: Pancreas: wnl Liver: wnl Gallbladder: Enlarged with echogenic foci within. No pericholecystic fluid is evident. Gallbladder w all 0.3 cm which is borderline. Evidence for sonographic Espinoza's sign: No CBD: Dilated Right Kidney: wnl IMPRESSION: 1. Hepatomegaly. 2. Cholelithiasis. No definite acute cholecystitis. Follow-up as clinically indicated. [facility], , 10/21/2024 2:36 PM
--- NOTE | 2024-10-21 15:02 | P.PN ---
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 He was seen and evaluated in this facility 1 month ago due to pain in his left wrist and there was concern for possible septic arthritis, which was later ruled out by orthopedic surgery. When seen at bedside, his is present as well, states that he had sudden onset shortness of breath today where he reported "he just did not feel well" and became so short of breath he could not breathe. He does endorse having had "a few" of these episodes over the past few weeks, however for those episodes he states that he would step outside and take a few deep breaths which would resolve the issue. His noted that she feels as though these episodes may stem from when he has pain control patches are not replaced in a timely manner, or possibly withdrawal from the fentanyl patch not being replaced on time. Additionally, he and she both know that with increased stress they have noticed that occurring more. Additionally, he notes having had worsening fatigue over the past few months, stating that some days he has difficulty even getting out of bed. He does endorse intermittent feeling of chills which predates this acute episode, as well as a poor appetite and weight loss - however he has been taking Mounjaro, he is unsure whether the weight loss and appetite is solely because of the medication. Denies any nausea, vomiting, abdominal pain, diarrhea, change in bowel or urinary habits. In the ER he was febrile up to 100.1, tachycardic in the 140s, SpO2 95% on room air, BP stable, lab work revealed leukocytosis 12.7, lactic acid 2.2, D-dimer 1.3, Cepheid negative, chest x-ray no acute process, CTA chest no acute PE or pulmonary process, EKG showed sinus tachycardia. Patient was admitted for further management of sepsis with unknown source, started on vancomycin, cefepime, Flagyl. CT abdomen pelvis ordered and pending, blood cultures obtained and pending. ID consulted, vitamin D 27.6, will start on vitamin D supplements, folate 19.5, TSH 0.4, B12 560. . UA negative for UTI. Left wrist x-ray showed mild lucency along the medial aspect of the lunate. Patient cannot undergo MRI due to stimulator present. CT abdomen pelvis showed cholelithiasis with hydropic gallbladder, no CT evidence for inflammatory changes, moderate-sized right inguinal hernia containing fat and nonobstructing small bowel, left inguinal fat-containing hernia, prostate megaly. Abdominal x-ray was ordered, hepatomegaly, cholelithiasis with no definite acute cholecystitis. 10/21: Patient seen examined bedside, complains of ongoing fatigue. He had troubles with urination, straight cathed twice. Flomax increased to 0.8. Leukocytosis stable 11.78, hemoglobin stable 10.6, normal sodium, potassium, creatinine, glucose elevated. Procalcitonin 3.3. Blood cultures preliminary negative. Per ID, continue Levaquin and Flagyl Pertinent Imaging: As above Pertinent positives and negatives as discussed above, a complete review of systems was performed and all other systems are negative. Vitals Signs Reviewed. General: [nontoxic], [no distress], [appears at stated age], diaphoretic, Derm: [warm], [dry] Head: [atraumatic], [normocephalic], [symmetric] Eyes: [EOMI], [no lid lag], [anicteric sclera] Mouth: [no lip lesion], [mucus membranes moist] Cardiovascular: [S1S2 reg], [no murmur] Lungs: [CTA bilateral], [no rhonchi, no rales] , [no accessory muscle use] Abdominal: [soft], [suprapubic tenderness], [no guarding], [no appreciable organomegaly] Ext: [no gross muscle atrophy], [no edema], [no contractures] Neuro: [ CN II-XI grossly intact], [no focal neuro deficits] Psych: [Alert], [oriented], [appropriate affect] Assessment and Plan: Sepsis w/no obvious signs of infection Sinus tachycardia secondary to above Dyspnea without hypoxia Lactic acidosis, resolved - Blood culture, urine cultures pending - CRP and ESR normal, - Vancomyci discontinue, levofloxacin 750daily and flagyl 500 every 12 hours for broad spectrum coverage without known infection source - not zosyn d/t patient penicillin allergy, SOT 10/19 - Has been placed on 2 L of cannula for comfort - Titrate off O2 as possible, maintaining SpO2 > 90% - XR Left wrist ordered, arthrocentesis attempt 1 month prior, without known source of infection - denies any pain or tenderness -Continue LR to 75 cc -Left wrist x-ray showed mild lucency along the medial aspect of the lunate. Patient cannot undergo MRI due to stimulator present. 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 nightly, metoprolol 50 mg p.o. daily hydralazine 50 show TSH, Dilaudid 4 mg p.o. twice daily, lidocaine patch, fentanyl patch 75 q72 hours DVT prophylaxis: Lovenox 40 mg subcu daily CODE STATUS: Full code Anticipated discharge place: Home Objective - Vital Signs Vital signs: Vital Signs Temp 97.4 F L 10/21/24 07:59 Pulse 92 10/21/24 13:11 Resp 18 10/21/24 07:59 BP 132/71 10/21/24 07:59 Pulse Ox 96 10/21/24 09:24 FiO2 Intake & Output 10/20/24 10/21/24 10/21/24 18:59 06:59 18:59 Output Total 975 1600 Balance -975 -1600 Output: Urine 975 1600 Straight 800 1000 Other: Voiding Method Urinal Toilet Urinal - Labs CBC & Chem 7: 10/21/24 05:43 10/21/24 05:43 Labs: Abnormal Lab Results - Last 24 Hours (Table) 10/20/24 10/20/24 10/20/24 Range/Units 09:31 17:03 21:02 WBC (4.50-10.00) X 10*3/uL RBC (4.40-5.60) X 10*6/uL Hgb (13.0-17.0) g/dL Hct (39.6-50.0) % MCHC (32.0-37.0) g/dL RDW (11.5-14.5) % Immature Gran # (0.00-0.04) X 10*3/uL Neutrophils # (1.80-7.70) X 10*3/uL Monocytes # (0.20-1.00) X 10*3/uL Eosinophils # (0.04-0.35) X 10*3/uL Glucose (70-110) mg/dL POC Glucose (mg/dL) 328 H 143 H (70-110) mg/dL Procalcitonin 3.30 H (0.02-0.50) ng/mL 10/21/24 10/21/24 10/21/24 Range/Units 05:43 05:43 06:11 WBC 11.78 H (4.50-10.00) X 10*3/uL RBC 3.82 L (4.40-5.60) X 10*6/uL Hgb 10.6 L (13.0-17.0) g/dL Hct 33.6 L (39.6-50.0) % MCHC 31.5 L (32.0-37.0) g/dL RDW 15.1 H (11.5-14.5) % Immature Gran # 0.05 H (0.00-0.04) X 10*3/uL Neutrophils # 8.92 H (1.80-7.70) X 10*3/uL Monocytes # 1.26 H (0.20-1.00) X 10*3/uL Eosinophils # 0.52 H (0.04-0.35) X 10*3/uL Glucose 206 H (70-110) mg/dL POC Glucose (mg/dL) 231 H (70-110) mg/dL Procalcitonin (0.02-0.50) ng/mL 10/21/24 10/21/24 Range/Units 10:01 12:36 WBC (4.50-10.00) X 10*3/uL RBC (4.40-5.60) X 10*6/uL Hgb (13.0-17.0) g/dL Hct (39.6-50.0) % MCHC (32.0-37.0) g/dL RDW (11.5-14.5) % Immature Gran # (0.00-0.04) X 10*3/uL Neutrophils # (1.80-7.70) X 10*3/uL Monocytes # (0.20-1.00) X 10*3/uL Eosinophils # (0.04-0.35) X 10*3/uL Glucose (70-110) mg/dL POC Glucose (mg/dL) 258 H 199 H (70-110) mg/dL Procalcitonin (0.02-0.50) ng/mL Microbiology - Last 24 Hours (Table) 10/19/24 23:34 Blood Culture - Preliminary Blood
--- NOTE | 2024-10-21 15:37 | P.PN ---
Subjective Progress Note Date: 10/21/24 Principal diagnosis: Reason for follow-up is fever, Patient is a 74-year-old male with a past medical history significant for diabetes mellitus hypertension hyperlipidemia [place] CVA TIA was brought into the hospital concerning for increasing shortness of breath patient shortness of breath with exertion even at rest with associated palpitation, patient did have a fever with initial workup negative prompting this consultation. On today's evaluation that is 10/21/2024, the patient did have resolution of his fever afebrile this morning patient is currently on 2 L nasal oxygen denies any chest pain has been complaining of some abdominal discomfort as well as issues with urinary retention as the patient did require straight cath this morning. Patient white count is 11.78, creatinine is 1.0 Pro-[facility] is [address] abdominal pelvis suggestive of cholelithiasis with hydropic gallbladder, subsequent ultrasound did not show any features of cholelithiasis Objective - Vital Signs Vital signs: Vital Signs Temp 97.4 F L 10/21/24 07:59 Pulse 100 10/21/24 09:35 Resp 18 10/21/24 07:59 BP 132/71 10/21/24 07:59 Pulse Ox 96 10/21/24 09:24 FiO2 Intake & Output 10/20/24 10/21/24 10/21/24 18:59 06:59 18:59 Output Total 975 1600 Balance -975 -1600 Output: Urine 975 1600 Straight 800 1000 Other: Voiding Method Urinal Toilet Urinal - Exam GENERAL DESCRIPTION: An elderly male lying in bed in no distress RESPIRATORY SYSTEM: Unlabored breathing , decreased breath sounds at bases HEART: S1 S2 regular rate and rhythm , ABDOMEN: Soft , mild distention and tenderness EXTREMITIES: No edema feet - Labs CBC & Chem 7: 10/21/24 05:43 10/21/24 05:43 Labs: Abnormal Lab Results - Last 24 Hours (Table) 10/20/24 10/20/24 10/20/24 Range/Units 09:31 11:23 17:03 WBC (4.50-10.00) X 10*3/uL RBC (4.40-5.60) X 10*6/uL Hgb (13.0-17.0) g/dL Hct (39.6-50.0) % MCHC (32.0-37.0) g/dL RDW (11.5-14.5) % Immature Gran # (0.00-0.04) X 10*3/uL Neutrophils # (1.80-7.70) X 10*3/uL Monocytes # (0.20-1.00) X 10*3/uL Eosinophils # (0.04-0.35) X 10*3/uL Glucose (70-110) mg/dL POC Glucose (mg/dL) 210 H 328 H (70-110) mg/dL Procalcitonin 3.30 H (0.02-0.50) ng/mL 10/20/24 10/21/24 10/21/24 Range/Units 21:02 05:43 05:43 WBC 11.78 H (4.50-10.00) X 10*3/uL RBC 3.82 L (4.40-5.60) X 10*6/uL Hgb 10.6 L (13.0-17.0) g/dL Hct 33.6 L (39.6-50.0) % MCHC 31.5 L (32.0-37.0) g/dL RDW 15.1 H (11.5-14.5) % Immature Gran # 0.05 H (0.00-0.04) X 10*3/uL Neutrophils # 8.92 H (1.80-7.70) X 10*3/uL Monocytes # 1.26 H (0.20-1.00) X 10*3/uL Eosinophils # 0.52 H (0.04-0.35) X 10*3/uL Glucose 206 H (70-110) mg/dL POC Glucose (mg/dL) 143 H (70-110) mg/dL Procalcitonin (0.02-0.50) ng/mL 10/21/24 10/21/24 Range/Units 06:11 10:01 WBC (4.50-10.00) X 10*3/uL RBC (4.40-5.60) X 10*6/uL Hgb (13.0-17.0) g/dL Hct (39.6-50.0) % MCHC (32.0-37.0) g/dL RDW (11.5-14.5) % Immature Gran # (0.00-0.04) X 10*3/uL Neutrophils # (1.80-7.70) X 10*3/uL Monocytes # (0.20-1.00) X 10*3/uL Eosinophils # (0.04-0.35) X 10*3/uL Glucose (70-110) mg/dL POC Glucose (mg/dL) 231 H 258 H (70-110) mg/dL Procalcitonin (0.02-0.50) ng/mL Microbiology - Last 24 Hours (Table) 10/19/24 23:34 Blood Culture - Preliminary Blood Assessment and Plan (1) Sepsis Current Visit: Yes Status: Acute Code(s): A41.9 - SEPSIS, UNSPECIFIED ORGANISM SNOMED Code(s): 77657446 (2) Allergy to multiple antibiotics Current Visit: Yes Status: Acute Code(s): Z88.1 - ALLERGY STATUS TO OTHER ANTIBIOTIC AGENTS SNOMED Code(s): 491957107 Plan: 1patient presented to hospital with shortness of breath in this patient who did have features of sepsis with fever tachycardia elevated white count but initial workup did not show clear focus of infection with a negative UA chest x-ray and CT has been negative for pneumonia patient with no joint swelling or cellulitis he did have left-sided tenderness on abdominal examination question of abdominal source. 2patient with multiple antibiotic ALLERGIES that would limit the number of antibiotic safe to use. 3patient did have CT of abdominal pelvis with contrast suggestive of cholelithiasis and hydrops gallbladder ultrasound did not show any features of cholecystitis 4patient did have resolution of fever, for now continue Levaquin and Flagyl waiting for the culture to finalize Dictation was produced using [facility] dictation software. please excuse any grammatical, word or spelling errors. Time with Patient: Less than 30
[2024-10-21 16:32] LABS: Glucose,Whole Blood 210 mg/dL (70-110)
[2024-10-21] MEDS: TAMSULOSIN 0.4 MG CAP.ER.24H PO SCH (21:04)
[2024-10-21 21:58] LABS: Glucose,Whole Blood 189 mg/dL (70-110)
[2024-10-22 05:09] LABS: Glucose,Whole Blood 229 mg/dL (70-110)
[2024-10-22 06:34] LABS: Glucose,Whole Blood 227 mg/dL (70-110)
--- NOTE | 2024-10-22 08:52 | P.PN ---
Subjective Progress Note Date: 10/22/24 Hospital Course: 74-year-old man with PMH of CAD s/p 7 stents placed (most recently 7 years ago), hypertension, hyperlipidemia, 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 He was seen and evaluated in this facility 1 month ago due to pain in his left wrist and there was concern for possible septic arthritis, which was later ruled out by orthopedic surgery. When seen at bedside, his is present as well, states that he had sudden onset shortness of breath today where he reported "he just did not feel well" and became so short of breath he could not breathe. He does endorse having had "a few" of these episodes over the past few weeks, however for those episodes he states that he would step outside and take a few deep breaths which would resolve the issue. His noted that she feels as though these episodes may stem from when he has pain control patches are not replaced in a timely manner, or possibly withdrawal from the fentanyl patch not being replaced on time. Additionally, he and she both know that with increased stress they have noticed that occurring more. Additionally, he notes having had worsening fatigue over the past few months, stating that some days he has difficulty even getting out of bed. He does endorse intermittent feeling of chills which predates this acute episode, as well as a poor appetite and weight loss - however he has been taking Mounjaro, he is unsure whether the weight loss and appetite is solely because of the medication. Denies any nausea, vomiting, abdominal pain, diarrhea, change in bowel or urinary habits. In the ER he was febrile up to 100.1, tachycardic in the 140s, SpO2 95% on room air, BP stable, lab work revealed leukocytosis 12.7, lactic acid 2.2, D-dimer 1.3, Cepheid negative, chest x-ray no acute process, CTA chest no acute PE or pulmonary process, EKG showed sinus tachycardia. Patient was admitted for further management of sepsis with unknown source, started on vancomycin, cefepime, Flagyl. CT abdomen pelvis ordered and pending, blood cultures obtained and pending. ID consulted, vitamin D 27.6, will start on vitamin D supplements, folate 19.5, TSH 0.4, B12 560. . UA negative for UTI. Left wrist x-ray showed mild lucency along the medial aspect of the lunate. Patient cannot undergo MRI due to stimulator present. CT abdomen pelvis showed cholelithiasis with hydropic gallbladder, no CT evidence for inflammatory changes, moderate-sized right inguinal hernia containing fat and nonobstructing small bowel, left inguinal fat-containing hernia, prostate megaly. Abdominal USwas ordered, hepatomegaly, cholelithiasis with no definite acute cholecystitis. 10/21: Patient seen examined bedside, complains of ongoing fatigue. He had troubles with urination, straight cathed twice. Flomax increased to 0.8. Leukocytosis stable 11.78, hemoglobin stable 10.6, normal sodium, potassium, creatinine, glucose elevated. Procalcitonin 3.3. Blood cultures preliminary negative. Per ID, continue Levaquin and Flagyl 10/22: Seen examined at bedside, patient's present during exam. Spiked fever yesterday around 8 PM Tmax 101.5, again this morning 100.1. Blood pressure dropped to 100/57, bolus of LR 500 cc provided. Additional blood cultures obtained, patient feels short of breath, will order chest x-ray Pertinent Imaging: As above Pertinent positives and negatives as discussed above, a complete review of systems was performed and all other systems are negative. Vitals Signs Reviewed. General: [nontoxic], [no distress], [appears at stated age], diaphoretic, Derm: [warm], [dry] Head: [atraumatic], [normocephalic], [symmetric] Eyes: [EOMI], [no lid lag], [anicteric sclera] Mouth: [no lip lesion], [mucus membranes moist] Cardiovascular: [S1S2 reg], [no murmur] Lungs: [CTA bilateral], [no rhonchi, no rales] , [no accessory muscle use] Abdominal: [soft], [suprapubic tenderness], [no guarding], [no appreciable organomegaly] Ext: [no gross muscle atrophy], [no edema], [no contractures] Neuro: [ CN II-XI grossly intact], [no focal neuro deficits] Psych: [Alert], [oriented], [appropriate affect] Assessment and Plan: Sepsis w/no obvious signs of infection Sinus tachycardia secondary to above Dyspnea without hypoxia Lactic acidosis, resolved Cholelithiasis without cholecystitis - Blood culture, urine cultures pending - CRP and ESR normal, - Vancomyci discontinue, levofloxacin 750daily and flagyl 500 every 12 hours for broad spectrum coverage without known infection source - not zosyn d/t patient penicillin allergy, SOT 10/19 - Has been placed on 2 L of cannula for comfort - Titrate off O2 as possible, maintaining SpO2 > 90% - XR Left wrist ordered, arthrocentesis attempt 1 month prior, without known source of infection - denies any pain or tenderness -Continue LR to 75 cc -Left wrist x-ray showed mild lucency along the medial aspect of the lunate. Patient cannot undergo MRI due to stimulator present. 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 nightly, metoprolol 50 mg p.o. daily hydralazine 50 3 times daily holding parameters, Dilaudid 4 mg p.o. twice daily, lidocaine patch, fentanyl patch 75 q72 hours DVT prophylaxis: Lovenox 40 mg subcu daily CODE STATUS: Full code Anticipated discharge place: Home Objective - Vital Signs Vital signs: Vital Signs Temp 97.9 F 10/22/24 08:00 Pulse 86 10/22/24 08:00 Resp 17 10/22/24 08:00 BP 103/52 10/22/24 08:00 Pulse Ox 97 10/22/24 08:00 FiO2 Intake & Output 10/21/24 10/22/24 10/22/24 18:59 06:59 18:59 Intake Total 1200 2160 150 Output Total 700 1750 Balance 500 410 150 Intake: Intake, IV Titration 900 Amount Lactated Ringers 1,000 ml 900 @ 75 mls/hr IV .[id number] [facility] Rx#:[id number] Oral 300 2160 150 Output: Urine 700 1750 Other: Voiding Method Toilet Toilet Urinal Urinal # Voids 1 # Bowel Movements 0 - Labs CBC & Chem 7: 10/21/24 05:43 10/21/24 05:43 Labs: Abnormal Lab Results - Last 24 Hours (Table) 10/21/24 10/21/24 10/21/24 Range/Units 05:43 10:01 12:36 Glucose 206 H (70-110) mg/dL POC Glucose (mg/dL) 258 H 199 H (70-110) mg/dL 10/21/24 10/21/24 10/22/24 Range/Units 16:31 21:56 04:58 Glucose (70-110) mg/dL POC Glucose (mg/dL) 210 H 189 H 229 H (70-110) mg/dL 10/22/24 Range/Units 06:32 Glucose (70-110) mg/dL POC Glucose (mg/dL) 227 H (70-110) mg/dL Microbiology - Last 24 Hours (Table) 10/19/24 23:34 Blood Culture - Preliminary Blood
[2024-10-22 09:20] LABS: Basophils # (A) 0.06 X 10*3/uL (0.00-0.10); Basophils % (A) 0.7 %; Blood Urea Nitrogen 15.4 mg/dL (9.0-27.0); Calcium 8.6 mg/dL (8.7-10.3); Carbon Dioxide 23.2 mmol/L (21.6-31.8); Chloride 102 mmol/L (96-109); Eosinophils # (A) 0.78 X 10*3/uL (0.04-0.35); Eosinophils % (A) 9.1 %; Glucose 176 mg/dL (70-110); HCT 31.8 % (39.6-50.0); HGB 9.8 g/dL (13.0-17.0); Lymphocytes # (A) 0.98 X 10*3/uL (0.90-5.00); Lymphocytes % (A) 11.4 %; MCH 27.3 pg (27.0-32.0); MCHC 30.8 g/dL (32.0-37.0); MCV 88.6 FL (80.0-97.0); Mean Platelet Volume 11.1 FL (9.5-12.2); Monocytes # (A) 1.15 X 10*3/uL (0.20-1.00); Monocytes % (A) 13.4 %; NRBC Per 100 WBC 0 X 10*3/uL (0.00-0.01); Neutrophils # (A) 5.59 X 10*3/uL (1.80-7.70); Neutrophils % (A) 64.9 %; Platelet Count 188 X 10*3/uL (140-440); Potassium 4.2 mmol/L (3.5-5.5); RBC 3.59 X 10*6/uL (4.40-5.60); RDW 15.1 % (11.5-14.5); Sodium 134 mmol/L (135-145)
--- NOTE | 2024-10-22 09:31 | XR ---
EXAMINATION TYPE: XR chest 1V portable DATE OF EXAM: 10/22/2024 9:04 AM COMPARISON: 10/19/2024 CLINICAL INDICATION: Male, 74 years old with history of hypoxia, fever, TECHNIQUE: XR chest 1V portable view(s) obtained. FINDINGS: The heart size is normal. The pulmonary vasculature is normal. The lungs are clear. IMPRESSION: 1. No acute pulmonary process. [facility], , 10/22/2024 9:29 AM
[2024-10-22 12:16] LABS: Glucose,Whole Blood 187 mg/dL (70-110)
[2024-10-22 16:59] LABS: Glucose,Whole Blood 162 mg/dL (70-110)
[2024-10-22 20:52] LABS: Glucose,Whole Blood 197 mg/dL (70-110)
[2024-10-23 06:03] LABS: Glucose,Whole Blood 315 mg/dL (70-110)
--- NOTE | 2024-10-23 08:43 | P.PN ---
Subjective Progress Note Date: 10/23/24 Principal diagnosis: Reason for follow-up is fever, Patient is a 74-year-old male with a past medical history significant for diabetes mellitus hypertension hyperlipidemia [place] CVA TIA was brought into the hospital concerning for increasing shortness of breath patient shortness of breath with exertion even at rest with associated palpitation, patient did have a fever with initial workup negative prompting this consultation. On today's evaluation that is 10/23/2023, patient did have a temperature of 101 F last night however did have 98 F this afternoon, patient is on room air and breathing comfortably no chest pain or cough, the patient did not have any nausea vomiting abdominal pain or any diarrhea. Patient did have normalization of white count to 8.60 creatinine is 1.0 blood culture negative chest x-ray no acute pulmonary process Objective - Vital Signs Vital signs: Vital Signs Temp 97.9 F 10/22/24 08:00 Pulse 84 10/22/24 12:39 Resp 17 10/22/24 08:40 BP 103/52 10/22/24 08:00 Pulse Ox 96 10/22/24 08:54 FiO2 Intake & Output 10/21/24 10/22/24 10/22/24 18:59 06:59 18:59 Intake Total 1200 2160 150 Output Total 700 1750 Balance 500 410 150 Intake: Intake, IV Titration 900 Amount Lactated Ringers 1,000 ml 900 @ 75 mls/hr IV .[id number] [facility] Rx#:[id number] Oral 300 2160 150 Output: Urine 700 1750 Other: Voiding Method Toilet Toilet Indwelling Catheter Urinal Urinal # Voids 1 # Bowel Movements 0 - Exam GENERAL DESCRIPTION: An elderly male lying in bed in no distress RESPIRATORY SYSTEM: Unlabored breathing , decreased breath sounds at bases HEART: S1 S2 regular rate and rhythm , ABDOMEN: Soft , mild distention and tenderness EXTREMITIES: No edema feet - Labs CBC & Chem 7: 10/22/24 04:15 10/22/24 04:15 Labs: Abnormal Lab Results - Last 24 Hours (Table) 10/21/24 10/21/24 10/22/24 Range/Units 16:31 21:56 04:15 RBC 3.59 L (4.40-5.60) X 10*6/uL Hgb 9.8 L (13.0-17.0) g/dL Hct 31.8 L (39.6-50.0) % MCHC 30.8 L (32.0-37.0) g/dL RDW 15.1 H (11.5-14.5) % Monocytes # 1.15 H (0.20-1.00) X 10*3/uL Eosinophils # 0.78 H (0.04-0.35) X 10*3/uL Sodium (135-145) mmol/L Glucose (70-110) mg/dL POC Glucose (mg/dL) 210 H 189 H (70-110) mg/dL Calcium (8.7-10.3) mg/dL 10/22/24 10/22/24 10/22/24 Range/Units 04:15 04:58 06:32 RBC (4.40-5.60) X 10*6/uL Hgb (13.0-17.0) g/dL Hct (39.6-50.0) % MCHC (32.0-37.0) g/dL RDW (11.5-14.5) % Monocytes # (0.20-1.00) X 10*3/uL Eosinophils # (0.04-0.35) X 10*3/uL Sodium 134 L (135-145) mmol/L Glucose 176 H (70-110) mg/dL POC Glucose (mg/dL) 229 H 227 H (70-110) mg/dL Calcium 8.6 L (8.7-10.3) mg/dL 10/22/24 Range/Units 12:14 RBC (4.40-5.60) X 10*6/uL Hgb (13.0-17.0) g/dL Hct (39.6-50.0) % MCHC (32.0-37.0) g/dL RDW (11.5-14.5) % Monocytes # (0.20-1.00) X 10*3/uL Eosinophils # (0.04-0.35) X 10*3/uL Sodium (135-145) mmol/L Glucose (70-110) mg/dL POC Glucose (mg/dL) 187 H (70-110) mg/dL Calcium (8.7-10.3) mg/dL Microbiology - Last 24 Hours (Table) 10/20/24 18:00 Nasal Screen MRSA/MSSA - Final Nasal Swab 10/19/24 23:34 Blood Culture - Preliminary Blood Assessment and Plan (1) Sepsis Current Visit: Yes Status: Acute Code(s): A41.9 - SEPSIS, UNSPECIFIED ORGANISM SNOMED Code(s): 56263494 (2) Allergy to multiple antibiotics Current Visit: Yes Status: Acute Code(s): Z88.1 - ALLERGY STATUS TO OTHER ANTIBIOTIC AGENTS SNOMED Code(s): 262748855 Plan: 1patient presented to hospital with shortness of breath in this patient who did have features of sepsis with fever tachycardia elevated white count but initial workup did not show clear focus of infection with a negative UA chest x-ray and CT has been negative for pneumonia patient with no joint swelling or cellulitis he did have left-sided tenderness on abdominal examination question of abdominal source. 2patient with multiple antibiotic ALLERGIES that would limit the number of antibiotic safe to use. 3patient did have CT of abdominal pelvis with contrast suggestive of cholelithiasis and hydrops gallbladder ultrasound did not show any features of cholecystitis 4patient did have a fever last night however his white count has normalized blood culture has been negative so far MRSA nasal screen is negative, continue with the Levaquin and Flagyl Dictation was produced using [employer] [place] dictation software. please excuse any grammatical, word or spelling errors. Time with Patient: Less than 30
[2024-10-23 08:54] LABS: Basophils # (A) 0.03 10*3/uL (0.00-0.10); Basophils % (A) 0.4 %; Eosinophils % (A) 9.1 %; HCT 28.7 % (39.6-50.0); Lymphocytes # (A) 0.97 10*3/uL (0.90-5.00); Lymphocytes % (A) 12.6 %; MCH 28.1 pg (27.0-32.0); MCHC 32.8 g/dL (32.0-37.0); MCV 85.9 fL (80.0-97.0); Mean Platelet Volume 10.9 fL (9.5-12.2); Neutrophils % (A) 64.8 %; Platelet Count 167 10*3/uL (140-440); RBC 3.34 10*6/uL (4.40-5.60); RDW 14.7 % (11.5-14.5); WBC 7.71 10*3/uL (4.50-10.00)
[2024-10-23 09:07] LABS: African American GFR (CKD) >90 (>60 ml/min/1.73 sqM); Anion Gap 8 mmol/L; Blood Urea Nitrogen 14 mg/dL (9-20); Calcium 9.4 mg/dL (8.4-10.2); Carbon Dioxide 22 mmol/L (22-30); Chloride 102 mmol/L (98-107); Glucose 225 mg/dL (74-99); Non-African American GFR(CKD) 87 (>60 ml/min/1.73 sqM); Potassium 4.1 mmol/L (3.5-5.1); Sodium 132 mmol/L (137-145)
[2024-10-23 09:11] LABS: HGB 9.4 g/dL (13.0-17.0)
[2024-10-23 09:20] LABS: Glucose,Whole Blood 154 mg/dL (70-110)
[2024-10-23 12:05] LABS: Glucose,Whole Blood 159 mg/dL (70-110)
--- NOTE | 2024-10-23 12:38 | P.PN ---
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 He was seen and evaluated in this facility 1 month ago due to pain in his left wrist and there was concern for possible septic arthritis, which was later ruled out by orthopedic surgery. When seen at bedside, his is present as well, states that he had sudden onset shortness of breath today where he reported "he just did not feel well" and became so short of breath he could not breathe. He does endorse having had "a few" of these episodes over the past few weeks, however for those episodes he states that he would step outside and take a few deep breaths which would resolve the issue. His noted that she feels as though these episodes may stem from when he has pain control patches are not replaced in a timely manner, or possibly withdrawal from the fentanyl patch not being replaced on time. Additionally, he and she both know that with increased stress they have noticed that occurring more. Additionally, he notes having had worsening fatigue over the past few months, stating that some days he has difficulty even getting out of bed. He does endorse intermittent feeling of chills which predates this acute episode, as well as a poor appetite and weight loss - however he has been taking Mounjaro, he is unsure whether the weight loss and appetite is solely because of the medication. Denies any nausea, vomiting, abdominal pain, diarrhea, change in bowel or urinary habits. In the ER he was febrile up to 100.1, tachycardic in the 140s, SpO2 95% on room air, BP stable, lab work revealed leukocytosis 12.7, lactic acid 2.2, D-dimer 1.3, Cepheid negative, chest x-ray no acute process, CTA chest no acute PE or pulmonary process, EKG showed sinus tachycardia. Patient was admitted for further management of sepsis with unknown source, started on vancomycin, cefepime, Flagyl. CT abdomen pelvis ordered and pending, blood cultures obtained and pending. ID consulted, vitamin D 27.6, will start on vitamin D supplements, folate 19.5, TSH 0.4, B12 560. . UA negative for UTI. Left wrist x-ray showed mild lucency along the medial aspect of the lunate. Patient cannot undergo MRI due to stimulator present. CT abdomen pelvis showed cholelithiasis with hydropic gallbladder, no CT evidence for inflammatory changes, moderate-sized right inguinal hernia containing fat and nonobstructing small bowel, left inguinal fat-containing hernia, prostate megaly. Abdominal USwas ordered, hepatomegaly, cholelithiasis with no definite acute cholecystitis. Patient has been dealing with urinary retention, CT showed prostatomegaly, he previously was complaining of nocturia, frequency, Flomax increased to 0.8, Flomax placed after several straight cath Per ID, continue Levaquin and Flagyl 10/23Seen examined at bedside, patient's present during exam. Spiked fever yesterday around 7 PM Tmax 100.7 blood pressure remained stable, chest x-ray from 10/22 showed no acute process. Patient would like his Chapa catheter to be removed for void trials. Still no clear source for infection, cultures negative after 72 hours. Pertinent Imaging: As above Pertinent positives and negatives as discussed above, a complete review of systems was performed and all other systems are negative. Vitals Signs Reviewed. General: [nontoxic], [no distress], [appears at stated age], diaphoretic, Derm: [warm], [dry] Head: [atraumatic], [normocephalic], [symmetric] Eyes: [EOMI], [no lid lag], [anicteric sclera] Mouth: [no lip lesion], [mucus membranes moist] Cardiovascular: [S1S2 reg], [no murmur] Lungs: [CTA bilateral], [no rhonchi, no rales] , [no accessory muscle use] Abdominal: [soft], [suprapubic tenderness], [no guarding], [no appreciable organomegaly] Ext: [no gross muscle atrophy], [no edema], [no contractures] Neuro: [ CN II-XI grossly intact], [no focal neuro deficits] Psych: [Alert], [oriented], [appropriate affect] Assessment and Plan: Sepsis w/no obvious signs of infection Sinus tachycardia secondary to above Dyspnea without hypoxia Lactic acidosis, resolved Cholelithiasis without cholecystitis - Blood culture, urine cultures pending - CRP and ESR normal, - Vancomyci discontinue, levofloxacin 750daily and flagyl 500 every 12 hours for broad spectrum coverage without known infection source - not zosyn d/t patient penicillin allergy, SOT 10/19 - Has been placed on 2 L of cannula for comfort - Titrate off O2 as possible, maintaining SpO2 > 90% - XR Left wrist ordered, arthrocentesis attempt 1 month prior, without known source of infection - denies any pain or tenderness -Continue LR to 75 cc -Left wrist x-ray showed mild lucency along the medial aspect of the lunate. Patient cannot undergo MRI due to stimulator present. 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 nightly, metoprolol 50 mg p.o. daily hydralazine 50 3 times daily holding parameters, Dilaudid 4 mg p.o. twice daily, lidocaine patch, fentanyl patch 75 q72 hours DVT prophylaxis: Lovenox 40 mg subcu daily CODE STATUS: Full code Anticipated discharge place: Home Objective - Vital Signs Vital signs: Vital Signs Temp 98.2 F 10/23/24 09:15 Pulse 98 10/23/24 09:15 Resp 17 10/23/24 09:15 BP 131/56 10/23/24 09:15 Pulse Ox 95 10/23/24 09:15 FiO2 21 10/23/24 08:43 Intake & Output 10/22/24 10/23/24 10/23/24 18:59 06:59 18:59 Intake Total 150 Output Total 1701949 Balance -1550 -1950 Intake: Oral 150 Output: Urine 1699 1949 Other: Voiding Method Indwelling Catheter Indwelling Catheter Indwelling Catheter - Labs CBC & Chem 7: 10/23/24 07:52 10/23/24 07:52 Labs: Abnormal Lab Results - Last 24 Hours (Table) 10/22/24 10/22/24 10/23/24 Range/Units 16:58 20:50 06:02 RBC (4.40-5.60) 10*6/uL Hgb (13.0-17.0) g/dL Hct (39.6-50.0) % RDW (11.5-14.5) % Eosinophils # (0.04-0.35) 10*3/uL Sodium (137-145) mmol/L Glucose (74-99) mg/dL POC Glucose (mg/dL) 162 H 197 H 315 H (70-110) mg/dL 10/23/24 10/23/24 10/23/24 Range/Units 07:52 07:52 09:19 RBC 3.34 L (4.40-5.60) 10*6/uL Hgb 9.4 L D (13.0-17.0) g/dL Hct 28.7 L (39.6-50.0) % RDW 14.7 H (11.5-14.5) % Eosinophils # 0.70 H (0.04-0.35) 10*3/uL Sodium 132 L (137-145) mmol/L Glucose 225 H (74-99) mg/dL POC Glucose (mg/dL) 154 H (70-110) mg/dL 10/23/24 Range/Units 12:03 RBC (4.40-5.60) 10*6/uL Hgb (13.0-17.0) g/dL Hct (39.6-50.0) % RDW (11.5-14.5) % Eosinophils # (0.04-0.35) 10*3/uL Sodium (137-145) mmol/L Glucose (74-99) mg/dL POC Glucose (mg/dL) 159 H (70-110) mg/dL Microbiology - Last 24 Hours (Table) 10/19/24 23:34 Blood Culture - Preliminary Blood 10/20/24 18:00 Nasal Screen MRSA/MSSA - Final Nasal Swab
[2024-10-23 16:51] LABS: Glucose,Whole Blood 213 mg/dL (70-110)
--- NOTE | 2024-10-23 17:26 | P.PN ---
Subjective Progress Note Date: 10/23/24 Principal diagnosis: Reason for follow-up is fever, Patient is a 74-year-old male with a past medical history significant for diabetes mellitus hypertension hyperlipidemia [facility] CVA TIA was brought into the hospital concerning for increasing shortness of breath patient shortness of breath with exertion even at rest with associated palpitation, patient did have a fever with initial workup negative prompting this consultation. On today's evaluation that is 10/23/2024, Patient did have a low-grade fever of 100.7 F last night however is afebrile today patient is currently on room air and denies having any shortness of breath, the patient denies any chest pain or cough, the patient denies any nausea vomiting did not have any abdominal pain and no diarrhea, has been complaining of suprapubic discomfort and inability urinate after discontinuation of his Chapa catheter. The patient white count is 7.71 creatinine 0.85 blood culture has been negative so far Objective - Vital Signs Vital signs: Vital Signs Temp 97.6 F 10/23/24 14:00 Pulse 100 10/23/24 14:49 Resp 17 10/23/24 14:00 BP 155/67 10/23/24 14:00 Pulse Ox 99 10/23/24 14:00 FiO2 21 10/23/24 08:43 Intake & Output 10/22/24 10/23/24 10/23/24 18:59 06:59 18:59 Intake Total 150 200 Output Total 1700 1950 550 Balance -1550 -1950 -350 Intake: Oral 150 200 Output: Urine 1700 1950 550 Straight 550 Other: Voiding Method Indwelling Catheter Indwelling Catheter Indwelling Catheter - Exam GENERAL DESCRIPTION: An elderly male lying in bed in no distress RESPIRATORY SYSTEM: Unlabored breathing , decreased breath sounds at bases HEART: S1 S2 regular rate and rhythm , ABDOMEN: Soft , mild distention and tenderness EXTREMITIES: No edema feet - Labs CBC & Chem 7: 10/23/24 07:52 10/23/24 07:52 Labs: Abnormal Lab Results - Last 24 Hours (Table) 10/22/24 10/23/24 10/23/24 Range/Units 20:50 06:02 07:52 RBC 3.34 L (4.40-5.60) 10*6/uL Hgb 9.4 L D (13.0-17.0) g/dL Hct 28.7 L (39.6-50.0) % RDW 14.7 H (11.5-14.5) % Eosinophils # 0.70 H (0.04-0.35) 10*3/uL Sodium (137-145) mmol/L Glucose (74-99) mg/dL POC Glucose (mg/dL) 197 H 315 H (70-110) mg/dL 10/23/24 10/23/24 10/23/24 Range/Units 07:52 09:19 12:03 RBC (4.40-5.60) 10*6/uL Hgb (13.0-17.0) g/dL Hct (39.6-50.0) % RDW (11.5-14.5) % Eosinophils # (0.04-0.35) 10*3/uL Sodium 132 L (137-145) mmol/L Glucose 225 H (74-99) mg/dL POC Glucose (mg/dL) 154 H 159 H (70-110) mg/dL 10/23/24 Range/Units 16:49 RBC (4.40-5.60) 10*6/uL Hgb (13.0-17.0) g/dL Hct (39.6-50.0) % RDW (11.5-14.5) % Eosinophils # (0.04-0.35) 10*3/uL Sodium (137-145) mmol/L Glucose (74-99) mg/dL POC Glucose (mg/dL) 213 H (70-110) mg/dL Microbiology - Last 24 Hours (Table) 10/22/24 05:53 Blood Culture - Preliminary Blood 10/19/24 23:34 Blood Culture - Preliminary Blood Assessment and Plan (1) Sepsis Current Visit: Yes Status: Acute Code(s): A41.9 - SEPSIS, UNSPECIFIED ORGANISM SNOMED Code(s): 78933073 (2) Allergy to multiple antibiotics Current Visit: Yes Status: Acute Code(s): Z88.1 - ALLERGY STATUS TO OTHER ANTIBIOTIC AGENTS SNOMED Code(s): 253895863 Plan: 1patient presented to hospital with shortness of breath in this patient who did have features of sepsis with fever tachycardia elevated white count but initial workup did not show clear focus of infection with a negative UA chest x-ray and CT has been negative for pneumonia patient with no joint swelling or cellulitis he did have left-sided tenderness on abdominal examination question of abdominal source. 2patient with multiple antibiotic ALLERGIES that would limit the number of antibiotic safe to use. 3patient did have CT of abdominal pelvis with contrast suggestive of cholelithiasis and hydrops gallbladder ultrasound did not show any features of cholecystitis 4patient did have resolution of his fever white count has normalized culture have been negative so far to continue with the Levaquin and Flagyl at this point Dictation was produced using [email or web address] dictation software. please excuse any grammatical, word or spelling errors. Time with Patient: Less than 30
[2024-10-23 18:29] LABS: Appearance,Urine Cloudy (Clear); Bacteria,Urine Rare /hpf; Bilirubin,Urine Negative (Negative); Blood,Urine Large (Negative); Color,Urine Light Yellow; Glucose,Urine (UA) 4+ (Negative); Ketones,Urine Negative (Negative); Leukocyte Esterase,Urine Large (Negative); Nitrite,Urine Negative (Negative); PH, Urine 6.5 (5.0-8.0); Protein,Urine 1+ (Negative); RBC,Urine 150 /hpf (0-5); Specific Gravity,Urine 1.006 (1.001-1.035); Squamous Epithelial Cell,Urine 4 /hpf (0-4); Urobilinogen,Urine <2.0 mg/dL (<2.0); WBC,Urine 41 /hpf (0-5)
[2024-10-23 20:31] LABS: Glucose,Whole Blood 195 mg/dL (70-110)
[2024-10-24 06:02] LABS: Glucose,Whole Blood 248 mg/dL (70-110)
[2024-10-24 08:01] LABS: Basophils # (A) 0.05 X 10*3/uL (0.00-0.10); Basophils % (A) 0.8 %; Eosinophils # (A) 0.94 X 10*3/uL (0.04-0.35); Eosinophils % (A) 14.4 %; HCT 29.4 % (39.6-50.0); HGB 9.4 g/dL (13.0-17.0); Lymphocytes # (A) 1.03 X 10*3/uL (0.90-5.00); Lymphocytes % (A) 15.8 %; MCH 28.2 pg (27.0-32.0); MCV 88.3 FL (80.0-97.0); Mean Platelet Volume 11.5 FL (9.5-12.2); Monocytes # (A) 0.93 X 10*3/uL (0.20-1.00); Monocytes % (A) 14.2 %; NRBC Per 100 WBC 0 X 10*3/uL (0.00-0.01); Neutrophils # (A) 3.57 X 10*3/uL (1.80-7.70); Neutrophils % (A) 54.6 %; Platelet Count 181 X 10*3/uL (140-440); RBC 3.33 X 10*6/uL (4.40-5.60); RDW 14.6 % (11.5-14.5); WBC 6.53 X 10*3/uL (4.50-10.00)
[2024-10-24 08:16] LABS: BUN/Creat Ratio 15.12 Ratio (12.00-20.00); Blood Urea Nitrogen 12.1 mg/dL (9.0-27.0); Carbon Dioxide 22.1 mmol/L (21.6-31.8); Chloride 105 mmol/L (96-109); Glucose 234 mg/dL (70-110); Potassium 3.9 mmol/L (3.5-5.5); Sodium 136 mmol/L (135-145)
[2024-10-24] MEDS: ALPRAZolam 0.5 MG TAB PO STA (09:07)
[2024-10-24 11:23] LABS: Glucose,Whole Blood 245 mg/dL (70-110)
--- NOTE | 2024-10-24 12:40 | CDI ---
Documentation Clarification Form Date: 10/24/2024 12:01:15 PM From: Susan Dominguez RN CCDS Phone: [phone] Admit Date: 10/20/2024 08:39:00 AM Patient Name: Beto Poole Visit Number: [id number] Discharge Date: ATTENTION: The Clinical Documentation Specialists (CDI) and [facility] Coding Staff appreciate your assistance in clarifying documentation. Please respond to the clarification below the line at the bottom and electronically sign. The CDI & [facility] Coding staff will review the response and follow-up if needed. Please note: Queries are made part of the Legal Health Record. If you have any questions, please contact the author of this message via ITS. Dr. Leslye Martell Acute Hypoxic Respiratory Failure is documented , which may lack sufficient clinical evidence/support in the medical record. Additional clarification is requested. Patient history/risk factors: 74 year old male presents to the ED with sudden onset of shortness of breath. With palpitations. Patient was feeling extreme myalgias as if he could not get warm. No sick contacts. Medical History hospitalized in August for possible septic wrist in August. CVA, DM, HLD Cancer and HTN. 10/19, ED note. Clinical Indicators: 10/19, 19:56 VVS: B/P 153/72, HR 140, Temp 100.1F Oral, RR 22, SpO2 95% ra 10/19, 22:05; VVS: B/P 128/63, HR 115, RR 18, Temp 100.0F Oral, SpO2 96%2L nc 10/19, CXR: No acute pulmonary process. HP: Lung exam: CTA bilateral, no rales, no accessor muscle use 10/20, ID Consult: Lung exam: Unlabored breathing. Clear to auscultation anteriorly. No wheeze or crackle. Treatment: 10/19 2L nasal cannula After work up and study, please clarify which diagnosis is most appropriate? [x ] Acute Hypoxic Respiratory Failure ruled out [ ] Acute Hypoxic Respiratory Failure is a valid diagnosis as evidenced by the following: [ ] Respiratory Insufficiency [ ] Unable to determine [ ] Other, please specify (Template Last Revised: May 2023) MTDD
--- NOTE | 2024-10-24 12:59 | CDI ---
Documentation Clarification Form Date: 10/24/2024 12:32:39 PM From: Susan Dominguez RN CCDS Phone: [phone] Admit Date: 10/20/2024 08:39:00 AM Patient Name: Beto Poole Visit Number: [id number] Discharge Date: ATTENTION: The Clinical Documentation Specialists (CDI) and [facility] Coding Staff appreciate your assistance in clarifying documentation. Please respond to the clarification below the line at the bottom and electronically sign. The CDI & [facility] Coding staff will review the response and follow-up if needed. Please note: Queries are made part of the Legal Health Record. If you have any questions, please contact the author of this message via ITS. Doctor: Leslye Martell Sepsis is documented [insert date, location] which may lack sufficient clinical evidence/support in the medical record. Additional clarification is requested. Patient history/risk factors: 74 year old male presents to the ED with sudden onset of shortness of breath. With palpitations. Patient was feeling extreme myalgias as if he could not get warm. No sick contacts. Medical History hospitalized in August for possible septic wrist in August. CVA, DM, HLD Cancer and HTN. 10/19, ED note. Clinical Indicators: 10/19, 19:56 VVS: B/P 153/72, HR 140, Temp 100.1F Oral, RR 22, SpO2 95% ra 10/19, LABS: Wbc12.69, Neutrophils 11.21 10/21, US ABD: Hepatomegaly, Cholelithiasis 10/23 ID, Note: 3patient did have CT of abdominal pelvis with contrast suggestive of cholelithiasis and hydrops gallbladder ultrasound did not show any features of cholecystitis 4patient did have resolution of his fever white count has normalized culture have been negative so far to continue with the Levaquin and Flagyl at this point Treatment: 10/20 Vanomycin IVPB x 1; 10/21 Levofloxacin IVPB Q24H; 10/20 Metronidazole IVPB Q12H After work up and study, please clarify which diagnosis is most appropriate? [ ] Sepsis ruled out [ ] Sepsis treated prophylactically [ x] Sepsis is a valid diagnosis as evidence by the following: (Please add rationale): __leukocytosis + tachycardia [ ] Non-Infectious SIRS due to (please specify) [ ] Non-infectious SIRS due to with organ dysfunction as evidenced by [list organ dysfunction] [ ] Other, please specify [ ] Unable to determine SIRS Criteria: 2 or more of the following may indicate SIRS Temperature < 96.8F (36C) or > 101.0F (38.3C) Heart Rate > 90 bpm Respiratory Rate > 20 breaths/min or PaCO2 < 32 mmHg White Blood Cell Count > 12,000 or < 4,000 cells/mm3 or > 10% bands (Template Last Reviewed: May 2023) _ MADELEINED
--- NOTE | 2024-10-24 14:51 | P.PN ---
Subjective Progress Note Date: 10/24/24 Patient was seen and examined. UA done yesterday shows large LE with 150 RBC and 41 WBC with 4 Sq Epi cells. CBC and BMP done today shows RBC 3.33, Hg 9.4, Hct 39.4, glu 234. BCx negative so far. MRSA nasal screen was negative as well. General: not toxic, no distress, appears at stated age Derm: warm, dry Head: atraumatic, normocephalic, symmetric Eyes: EOMI, no lid lag, anicteric sclera Mouth: no lip lesion, mucus membranes moist Cardiovascular: Good distal perfusion in all 4 extremities Lungs: Breathing comfortably Ext: no gross muscle atrophy, no edema, no contractures Neuro: no focal neuro deficits Psych: Alert, oriented + Chapa Based on my assessment of this patient, this patient meets a high complexity level of care. Sepsis possibly due to UTI: Procal 3.3. Continue Levaquin 750 mg IV QD + Flagyl 500 mg IV BID. Follow UCx. BCx prelim neg. MRSA nasal swab neg. Urinary retention: Flomax 0.8 mg PO QHS. Continue Chapa catheter. Consult Urology. Vit D def.: Vit D 27.6. Replace with 50k units D2 weekly. Normocytic anemia: Stable with no signs of acute bleeding. Recommending age appropriate CA screening. Cholelithiasis without cholecystitis: As seen on GB US. Diabetes mellitus: ISS ACHS. Lispro 8 units TID. Hypertension: Hydralazine 50 mg PO TID. Metoprolol 50 mg PO QD. CAD with stenting: ASA 81 mg PO QD. Lipitor 80 mg PO QHS. Plavix 75 mg PO QHS. Chronic back pain: Fentanyl 75 mcg/hr patch Q3D. Gabapentin 900 mg PO TID. Dilaudid 4 mg PO BID. Lidocaine path 4% daily. CODE STATUS: FULL CODE DVT Prophylaxis: Lovenox SQ GI Prophylaxis: Designated medical POA if patient is not able to make medical decisions for themselves: I have reviewed the following customer service sales consultant notes: I have reviewed the results of the following tests: CBC, BMP, UA, BCx, MRSA nasal screen. I have ordered the following tests: I have discussed the care of this patient with the following independent historian: I have independently interpreted the following test below: I have discussed the management of this patient with the following physician: Dr. Lott Objective - Vital Signs Vital signs: Vital Signs Temp 98.7 F 10/24/24 14:00 Pulse 84 10/24/24 14:00 Resp 18 10/24/24 14:00 BP 122/62 10/24/24 14:00 Pulse Ox 96 10/24/24 14:00 FiO2 21 10/23/24 08:43 Intake & Output 10/23/24 10/24/24 10/24/24 18:59 06:59 18:59 Intake Total 200 Output Total 550 1900 1575 Balance -350 -1900 -1575 Intake: Oral 200 Output: Urine 550 1900 1575 Straight 550 1900 800 Other: Voiding Method Indwelling Catheter Urinal # Voids 1 1 # Bowel Movements 1 - Labs CBC & Chem 7: 10/24/24 03:20 10/24/24 03:20 Labs: Abnormal Lab Results - Last 24 Hours (Table) 10/23/24 10/23/24 10/23/24 Range/Units 16:49 18:10 20:29 RBC (4.40-5.60) X 10*6/uL Hgb (13.0-17.0) g/dL Hct (39.6-50.0) % RDW (11.5-14.5) % Eosinophils # (0.04-0.35) X 10*3/uL Glucose (70-110) mg/dL POC Glucose (mg/dL) 213 H 195 H (70-110) mg/dL Urine Protein 1+ H (Negative) Urine Glucose (UA) 4+ H (Negative) Urine Blood Large H (Negative) Ur Leukocyte Esterase Large H (Negative) Urine RBC 150 H (0-5) /hpf Urine WBC 41 H (0-5) /hpf Urine Bacteria Rare H (None) /hpf 10/24/24 10/24/24 10/24/24 Range/Units 03:20 03:20 06:01 RBC 3.33 L (4.40-5.60) X 10*6/uL Hgb 9.4 L (13.0-17.0) g/dL Hct 29.4 L (39.6-50.0) % RDW 14.6 H (11.5-14.5) % Eosinophils # 0.94 H (0.04-0.35) X 10*3/uL Glucose 234 H (70-110) mg/dL POC Glucose (mg/dL) 248 H (70-110) mg/dL Urine Protein (Negative) Urine Glucose (UA) (Negative) Urine Blood (Negative) Ur Leukocyte Esterase (Negative) Urine RBC (0-5) /hpf Urine WBC (0-5) /hpf Urine Bacteria (None) /hpf 10/24/24 Range/Units 11:21 RBC (4.40-5.60) X 10*6/uL Hgb (13.0-17.0) g/dL Hct (39.6-50.0) % RDW (11.5-14.5) % Eosinophils # (0.04-0.35) X 10*3/uL Glucose (70-110) mg/dL POC Glucose (mg/dL) 245 H (70-110) mg/dL Urine Protein (Negative) Urine Glucose (UA) (Negative) Urine Blood (Negative) Ur Leukocyte Esterase (Negative) Urine RBC (0-5) /hpf Urine WBC (0-5) /hpf Urine Bacteria (None) /hpf Microbiology - Last 24 Hours (Table) 10/22/24 05:53 Blood Culture - Preliminary Blood
[2024-10-24 16:45] LABS: Glucose,Whole Blood 246 mg/dL (70-110)
[2024-10-24 20:50] LABS: Glucose,Whole Blood 216 mg/dL (70-110)
[2024-10-24] MEDS: BISMUTH SUBSALICYLATE 4,192 MG/240 ML BOTTLE PO PRN (21:24)
[2024-10-25 06:06] LABS: Glucose,Whole Blood 225 mg/dL (70-110)
--- NOTE | 2024-10-25 08:12 | P.GSCN ---
History of Present Illness Consult date: 10/25/24 History of present illness: 74 yo male in the hospital with sob. We were asked to see for urine retention. there is no history of retention. The patient does however admit to some difficulty voiding over the last year. He voids frequently with symptoms of incomplete emptying. On CT scan his prostate is quite big. There is no history of infection. There is no history of previous urologic intervention. He has not been on any alpha blockers prior to this. There is no history of hematuria. His urine on admission is clear. He has an indwelling catheter present. He has been on Flomax since 10/20/2024 Review of Systems All systems: negative - Constitutional Denies fever, Denies weight loss - EENT Eyes: denies blurred vision Ears, nose, mouth and throat: Denies dysphagia - Cardiovascular Denies chest pain, Denies shortness of breath - Respiratory Denies cough, Denies 7 - Gastrointestinal Reports as per HPI - Genitourinary Denies dysuria, Denies hematuria - Integumentary Denies rash, Denies unusual bruising - Neurological Denies headaches, Denies syncope - Hematologic/Lymphatic Denies easy bleeding, Denies easy bruising Past Medical History Past Medical History: Cancer, CVA/TIA, Diabetes Mellitus, Hyperlipidemia, Hypertension, Myocardial Infarction (IA), Osteoarthritis (OA), Skin Disorder Additional Past Medical History / Comment(s): sinus infections; Pt has itchiness from medications, recent cardiac testing for procedure. hx skin cancer on eyebrow, treated. TIA x2 no residuals. hx of vertigo 05/2021. IA x 7 Last Myocardial Infarction Date:: 2017 History of Any Multi-Drug Resistant Organisms: None Reported Past Surgical History: Appendectomy, Back Surgery, Heart Catheterization With Stent, Orthopedic Surgery, Tonsillectomy Additional Past Surgical History / Comment(s): Pain stimulator in lower back, electrodes in upper back. Left knee repair ACL and meniscus tear, L rotator cuff x2, trigger point injections in shoulders Past Anesthesia/Blood Transfusion Reactions: No Reported Reaction Date of Last Stent Placement:: 2017 Past Psychological History: No Psychological Hx Reported Smoking Status: Former smoker Past Alcohol Use History: None Reported Past Drug Use History: None Reported - Past Family History Mother Family Medical History: Cancer, Congestive Heart Failure (CHF), Diabetes Mellitus, Hyperlipidemia, Hypertension Additional Family Medical History / Comment(s): breast cancer Father Family Medical History: Coronary Artery Disease (CAD), Hyperlipidemia, Hypertension Additional Family Medical History / Comment(s): pacemaker and AICD, ALS Medications and Allergies Home Medications Medication Instructions Recorded Confirmed Type Aspirin [Adult Low Dose Aspirin EC] 81 mg PO HS 01/14/20 10/20/24 History Atorvastatin [Lipitor] 80 mg PO HS 01/14/20 10/20/24 History Cetirizine HCl [Zyrtec] 10 mg PO HS 01/14/20 10/20/24 History Clopidogrel [Plavix] 75 mg PO HS 01/14/20 10/20/24 History Lidocaine 5% Patch [Lidoderm 5% 1 patch TRANSDERM DAILY 01/14/20 10/20/24 History Patch] Tamsulosin [Flomax] 0.4 mg PO HS 01/14/20 10/20/24 History metFORMIN HCL [Glucophage] 1,000 mg PO BID-W/MEALS 01/14/20 10/20/24 History Albuterol Inhaler [Ventolin Hfa 2 puff INHALATION RT-Q4H PRN 09/14/24 10/20/24 History Inhaler] Ergocalciferol (Vitamin D2) 1,250 mcg PO Q14D 09/14/24 10/20/24 History [Drisdol (50,000 Iu)] Gabapentin [Neurontin] 900 mg PO TID 09/14/24 10/20/24 History HYDROmorphone [Dilaudid] 4 mg PO BID 09/14/24 10/20/24 History Insulin Degludec [Tresiba 70 units SQ HS 09/14/24 10/20/24 History Flextouch U-200 Pen] Linaclotide [Linzess] 145 mcg PO DAILY PRN 09/14/24 10/20/24 History Tirzepatide [Mounjaro] 2.5 mg SQ TH 09/15/24 10/20/24 History Ibuprofen [Motrin] 800 mg PO Q6HR PRN #30 tab 09/20/24 10/20/24 Rx hydrALAZINE HCL [Apresoline] 50 mg PO TID 30 Days #90 tab 09/20/24 10/20/24 Rx Dapagliflozin Propanediol [Farxiga] 10 mg PO DAILY 10/20/24 10/20/24 History Metoprolol Succinate (ER) [Toprol 50 mg PO DAILY 10/20/24 10/20/24 History Xl] fentaNYL 75MCG/HR PATCH [Duragesic 1 patch TRANSDERM Q3D@0900 10/20/24 10/20/24 History 75MCG/HR] Allergies Allergy/AdvReac Type Severity Reaction Status Date / Time SAMINA Inhibitors Allergy Rash/Hives Verified 10/20/24 09:02 acetaminophen [From Percocet] Allergy Itching Verified 10/20/24 09:02 ARB-Angiotensin Receptor Allergy Rash/Hives Verified 10/20/24 09:02 Antagonist bacitracin Allergy Rash/Hives Verified 10/20/24 09:02 [From Neosporin ([id number])] cephalexin [From Keflex] Allergy Rash/Hives Verified 10/20/24 09:02 insulin glargine Allergy Swelling Verified 10/20/24 09:02 [From Lantus U-100 Insulin] neomycin Allergy Rash/Hives Verified 10/20/24 09:02 [From Neosporin ([id number])] oxycodone [From Percocet] Allergy Itching Verified 10/20/24 09:02 Penicillins Allergy Rash/Hives Verified 10/20/24 09:02 polymyxin B Allergy Rash/Hives Verified 10/20/24 09:02 [From Neosporin ([id number])] Surgical - Exam Vital Signs Temp Pulse Resp BP Pulse Ox 100.1 F H 140 H 22 153/72 95 10/19/24 19:56 10/19/24 19:56 10/19/24 19:56 10/19/24 19:56 10/19/24 19:56 - General well developed, well nourished, no distress - Eyes normal ocular movement, no icteric - ENT no hearing loss, no congestion - Neck no masses, trachea midline - Respiratory normal respiratory effort, clear to auscultation - Abdomen Abdomen: soft, non tender, no guarding, no rigid, no rebound - Integumentary no rash, no abnormal pigmentation - Neurologic no disoriented, no combative - Psychiatric oriented to time, oriented to person, oriented to place, speech is normal, memory intact Results - Labs 10/24/24 03:20 10/24/24 03:20 Abnormal Lab Results - Last 24 Hours (Table) 10/24/24 10/24/24 10/24/24 Range/Units 03:20 03:20 11:21 RBC 3.33 L (4.40-5.60) X 10*6/uL Hgb 9.4 L (13.0-17.0) g/dL Hct 29.4 L (39.6-50.0) % RDW 14.6 H (11.5-14.5) % Eosinophils # 0.94 H (0.04-0.35) X 10*3/uL Glucose 234 H (70-110) mg/dL POC Glucose (mg/dL) 245 H (70-110) mg/dL 10/24/24 10/24/24 10/25/24 Range/Units 16:43 20:49 06:05 RBC (4.40-5.60) X 10*6/uL Hgb (13.0-17.0) g/dL Hct (39.6-50.0) % RDW (11.5-14.5) % Eosinophils # (0.04-0.35) X 10*3/uL Glucose (70-110) mg/dL POC Glucose (mg/dL) 246 H 216 H 225 H (70-110) mg/dL Microbiology - Last 24 Hours (Table) 10/19/24 23:34 Blood Culture - Final Blood 10/22/24 05:53 Blood Culture - Preliminary Blood Diabetes panel 10/24/24 Range/Units 03:20 Sodium 136 (135-145) mmol/L Potassium 3.9 (3.5-5.5) mmol/L Chloride 105 (96-109) mmol/L Carbon Dioxide 22.1 (21.6-31.8) mmol/L BUN 12.1 (9.0-27.0) mg/dL Creatinine 0.8 (0.6-1.5) mg/dL Glucose 234 H (70-110) mg/dL Calcium 9.0 (8.7-10.3) mg/dL Calcium panel 10/24/24 Range/Units 03:20 Calcium 9.0 (8.7-10.3) mg/dL Pituitary panel 10/24/24 Range/Units 03:20 Sodium 136 (135-145) mmol/L Potassium 3.9 (3.5-5.5) mmol/L Chloride 105 (96-109) mmol/L Carbon Dioxide 22.1 (21.6-31.8) mmol/L BUN 12.1 (9.0-27.0) mg/dL Creatinine 0.8 (0.6-1.5) mg/dL Glucose 234 H (70-110) mg/dL Calcium 9.0 (8.7-10.3) mg/dL Adrenal panel 10/24/24 Range/Units 03:20 Sodium 136 (135-145) mmol/L Potassium 3.9 (3.5-5.5) mmol/L Chloride 105 (96-109) mmol/L Carbon Dioxide 22.1 (21.6-31.8) mmol/L BUN 12.1 (9.0-27.0) mg/dL Creatinine 0.8 (0.6-1.5) mg/dL Glucose 234 H (70-110) mg/dL Calcium 9.0 (8.7-10.3) mg/dL Assessment and Plan Assessment: Impression: urine retention Recommendations: the patient was just started on flomax a few days ago. He does have a larger than normal prostate on exam and ct scan. I will increase his flomax to bid and then he should have a voiding trial prior to discharge. If he still is unable to void then he should go home with the catheter and have a fu evaluation in our office. Time with Patient: Greater than 30
[2024-10-25] MEDS: ALPRAZolam 0.5 MG TAB PO PRN (10:36)
[2024-10-25 11:16] LABS: Glucose,Whole Blood 207 mg/dL (70-110)
--- NOTE | 2024-10-25 13:54 | P.PN ---
Subjective Progress Note Date: 10/25/24 Patient was seen and examined. UCx has come back negative. No new labs done today. General: not toxic, no distress, appears at stated age Derm: warm, dry Head: atraumatic, normocephalic, symmetric Eyes: EOMI, no lid lag, anicteric sclera Mouth: no lip lesion, mucus membranes moist Cardiovascular: Good distal perfusion in all 4 extremities Lungs: Breathing comfortably Ext: no gross muscle atrophy, no edema, no contractures Neuro: no focal neuro deficits Psych: Alert, oriented + Chapa Based on my assessment of this patient, this patient meets a high complexity level of care. Sepsis possibly due to UTI: Procal 3.3. Continue Levaquin 750 mg IV QD + Flagyl 500 mg IV BID. UCx neg. BCx prelim neg. MRSA nasal swab neg. Urinary retention: Flomax 0.8 mg PO QHS. DC Chapa catheter and attempt voiding t rial. Urology on board. Vit D def.: Vit D 27.6. Replace with 50k units D2 weekly. Normocytic anemia: Stable with no signs of acute bleeding. Recommending age appropriate CA screening. Cholelithiasis without cholecystitis: As seen on GB US. Diabetes mellitus: ISS ACHS. Lispro 8 units TID. Hypertension: Hydralazine 50 mg PO TID. Metoprolol 50 mg PO QD. CAD with stenting: ASA 81 mg PO QD. Lipitor 80 mg PO QHS. Plavix 75 mg PO QHS. Chronic back pain: Fentanyl 75 mcg/hr patch Q3D. Gabapentin 900 mg PO TID. Dilaudid 4 mg PO BID. Lidocaine path 4% daily. CODE STATUS: FULL CODE DVT Prophylaxis: Lovenox SQ GI Prophylaxis: Designated medical POA if patient is not able to make medical decisions for themselves: I have reviewed the following vendor management consultant notes: Urology, ID I have reviewed the results of the following tests: UCx. I have ordered the following tests: I have discussed the care of this patient with the following independent historian: I have independently interpreted the following test below: I have discussed the management of this patient with the following physician: Objective - Vital Signs Vital signs: Vital Signs Temp 98.7 F 10/25/24 08:00 Pulse 88 10/25/24 12:36 Resp 18 10/25/24 08:00 BP 149/70 10/25/24 08:00 Pulse Ox 94 L 10/25/24 08:00 FiO2 21 10/23/24 08:43 Intake & Output 10/24/24 10/25/24 10/25/24 18:59 06:59 18:59 Intake Total 2160 Output Total 2325 1300 Balance -2325 860 Intake: Oral 2160 Output: Urine 2325 1300 Straight 1100 Other: Voiding Method Urinal Indwelling Catheter - Labs CBC & Chem 7: 10/24/24 03:20 10/24/24 03:20 Labs: Abnormal Lab Results - Last 24 Hours (Table) 10/24/24 10/24/24 10/25/24 Range/Units 16:43 20:49 06:05 POC Glucose (mg/dL) 246 H 216 H 225 H (70-110) mg/dL 10/25/24 Range/Units 11:14 POC Glucose (mg/dL) 207 H (70-110) mg/dL Microbiology - Last 24 Hours (Table) 10/22/24 05:53 Blood Culture - Preliminary Blood 10/23/24 18:10 Urine Culture - Final Urine,Voided 10/19/24 23:34 Blood Culture - Final Blood
--- NOTE | 2024-10-25 15:34 | P.PN ---
Subjective Progress Note Date: 10/25/24 Principal diagnosis: Reason for follow-up is fever, Patient is a 74-year-old male with a past medical history significant for diabetes mellitus hypertension hyperlipidemia AL CVA TIA was brought into the hospital concerning for increasing shortness of breath patient shortness of breath with exertion even at rest with associated palpitation, patient did have a fever with initial workup negative prompting this consultation. On today's evaluation that is 10/25/2024, Patient is afebrile this morning patient denies having any chest pain shortness of breath or cough, the patient is currently on room air, patient denies any abdominal pain no diarrhea no nausea no vomiting does seem to be concerned about his urinary retention Chapa catheter. No new lab has been obtained today culture has been negative Objective - Vital Signs Vital signs: Vital Signs Temp 98.1 F 10/25/24 14:00 Pulse 92 10/25/24 14:00 Resp 18 10/25/24 14:00 BP 162/67 10/25/24 14:00 Pulse Ox 93 L 10/25/24 14:00 FiO2 21 10/23/24 08:43 Intake & Output 10/24/24 10/25/24 10/25/24 18:59 06:59 18:59 Intake Total 2160 Output Total 2325 1300 Balance -2325 860 Intake: Oral 2160 Output: Urine 2325 1300 Straight 1100 Other: Voiding Method Urinal Indwelling Catheter - Exam GENERAL DESCRIPTION: An elderly male lying in bed in no distress RESPIRATORY SYSTEM: Unlabored breathing , decreased breath sounds at bases HEART: S1 S2 regular rate and rhythm , ABDOMEN: Soft , mild distention and tenderness EXTREMITIES: No edema feet - Labs CBC & Chem 7: 10/24/24 03:20 10/24/24 03:20 Labs: Abnormal Lab Results - Last 24 Hours (Table) 10/24/24 10/24/24 10/25/24 Range/Units 16:43 20:49 06:05 POC Glucose (mg/dL) 246 H 216 H 225 H (70-110) mg/dL 10/25/24 Range/Units 11:14 POC Glucose (mg/dL) 207 H (70-110) mg/dL Microbiology - Last 24 Hours (Table) 10/22/24 05:53 Blood Culture - Preliminary Blood 10/23/24 18:10 Urine Culture - Final Urine,Voided 10/19/24 23:34 Blood Culture - Final Blood Assessment and Plan (1) Sepsis Current Visit: Yes Status: Acute Code(s): A41.9 - SEPSIS, UNSPECIFIED ORGANISM SNOMED Code(s): 78056627 (2) Allergy to multiple antibiotics Current Visit: Yes Status: Acute Code(s): Z88.1 - ALLERGY STATUS TO OTHER ANTIBIOTIC AGENTS SNOMED Code(s): 375680223 Plan: 1patient presented to hospital with shortness of breath in this patient who did have features of sepsis with fever tachycardia elevated white count but initial workup did not show clear focus of infection with a negative UA chest x-ray and CT has been negative for pneumonia patient with no joint swelling or cellulitis he did have left-sided tenderness on abdominal examination question of abdominal source. 2patient with multiple antibiotic ALLERGIES that would limit the number of anti biotic safe to use. 3patient did have CT of abdominal pelvis with contrast suggestive of cholelithi asis and hydrops gallbladder ultrasound did not show any features of cholecystitis 4patient did have resolution of his fever white count has normalized culture have been negative so far, patient did have a UA obtained for his urinary symptoms however culture has been negative 5patient did have resolution of his fever and white count with Levaquin and Flagyl to continue for about a week on discharge discussed with admitting physician Dictation was produced using [employer] dictation software. please excuse any grammatical, word or spelling errors. Time with Patient: Less than 30
--- NOTE | 2024-10-25 15:34 | P.PN ---
Subjective Progress Note Date: 10/24/24 Principal diagnosis: Reason for follow-up is fever, Patient is a 74-year-old male with a past medical history significant for diabetes mellitus hypertension hyperlipidemia [place] CVA TIA was brought into the hospital concerning for increasing shortness of breath patient shortness of breath with exertion even at rest with associated palpitation, patient did have a fever with initial workup negative prompting this consultation. On today's evaluation that is 10/24/2024, patient has been afebrile, patient is breathing comfortably and is currently on room air, patient denies having any chest pain and cough, patient denies nausea vomiting or diarrhea and no abdominal pain has been complaining of mostly suprapubic discomfort with the Chapa catheter. Patient white count is 6.53, creatinine 0.8 urine cultures currently pending Objective - Vital Signs Vital signs: Vital Signs Temp 97.9 F 10/24/24 07:26 Pulse 96 10/24/24 09:25 Resp 16 10/24/24 07:47 BP 158/72 10/24/24 07:26 Pulse Ox 97 10/24/24 07:26 FiO2 21 10/23/24 08:43 Intake & Output 10/23/24 10/24/24 10/24/24 18:59 06:59 18:59 Intake Total 200 Output Total 550 1900 800 Balance -350 -1900 -800 Intake: Oral 200 Output: Urine 550 1900 800 Straight 550 1900 800 Other: Voiding Method Indwelling Catheter Urinal # Voids 1 1 # Bowel Movements 1 - Exam GENERAL DESCRIPTION: An elderly male lying in bed in no distress RESPIRATORY SYSTEM: Unlabored breathing , decreased breath sounds at bases HEART: S1 S2 regular rate and rhythm , ABDOMEN: Soft , mild distention and tenderness EXTREMITIES: No edema feet - Labs CBC & Chem 7: 10/24/24 03:20 10/24/24 03:20 Labs: Abnormal Lab Results - Last 24 Hours (Table) 10/23/24 10/23/24 10/23/24 Range/Units 12:03 16:49 18:10 RBC (4.40-5.60) X 10*6/uL Hgb (13.0-17.0) g/dL Hct (39.6-50.0) % RDW (11.5-14.5) % Eosinophils # (0.04-0.35) X 10*3/uL Glucose (70-110) mg/dL POC Glucose (mg/dL) 159 H 213 H (70-110) mg/dL Urine Protein 1+ H (Negative) Urine Glucose (UA) 4+ H (Negative) Urine Blood Large H (Negative) Ur Leukocyte Esterase Large H (Negative) Urine RBC 150 H (0-5) /hpf Urine WBC 41 H (0-5) /hpf Urine Bacteria Rare H (None) /hpf 10/23/24 10/24/24 10/24/24 Range/Units 20:29 03:20 03:20 RBC 3.33 L (4.40-5.60) X 10*6/uL Hgb 9.4 L (13.0-17.0) g/dL Hct 29.4 L (39.6-50.0) % RDW 14.6 H (11.5-14.5) % Eosinophils # 0.94 H (0.04-0.35) X 10*3/uL Glucose 234 H (70-110) mg/dL POC Glucose (mg/dL) 195 H (70-110) mg/dL Urine Protein (Negative) Urine Glucose (UA) (Negative) Urine Blood (Negative) Ur Leukocyte Esterase (Negative) Urine RBC (0-5) /hpf Urine WBC (0-5) /hpf Urine Bacteria (None) /hpf 10/24/24 Range/Units 06:01 RBC (4.40-5.60) X 10*6/uL Hgb (13.0-17.0) g/dL Hct (39.6-50.0) % RDW (11.5-14.5) % Eosinophils # (0.04-0.35) X 10*3/uL Glucose (70-110) mg/dL POC Glucose (mg/dL) 248 H (70-110) mg/dL Urine Protein (Negative) Urine Glucose (UA) (Negative) Urine Blood (Negative) Ur Leukocyte Esterase (Negative) Urine RBC (0-5) /hpf Urine WBC (0-5) /hpf Urine Bacteria (None) /hpf Microbiology - Last 24 Hours (Table) 10/22/24 05:53 Blood Culture - Preliminary Blood Assessment and Plan (1) Sepsis Current Visit: Yes Status: Acute Code(s): A41.9 - SEPSIS, UNSPECIFIED ORGANISM SNOMED Code(s): 93467261 (2) Allergy to multiple antibiotics Current Visit: Yes Status: Acute Code(s): Z88.1 - ALLERGY STATUS TO OTHER ANTIBIOTIC AGENTS SNOMED Code(s): 467087418 Plan: 1patient presented to hospital with shortness of breath in this patient who did have features of sepsis with fever tachycardia elevated white count but initial workup did not show clear focus of infection with a negative UA chest x-ray and CT has been negative for pneumonia patient with no joint swelling or cellulitis he did have left-sided tenderness on abdominal examination question of abdominal source. 2patient with multiple antibiotic ALLERGIES that would limit the number of antibiotic safe to use. 3patient did have CT of abdominal pelvis with contrast suggestive of cholelithiasis and hydrops gallbladder ultrasound did not show any features of cholecystitis 4patient did have resolution of his fever white count has normalized culture have been negative so far, patient did have a UA obtained for his urinary symptoms yesterday which was positive cultures are pending 5we will keep the patient on Levaquin and Flagyl while waiting for the culture to finalize discussed with admitting team to get a urology evaluation for his urinary retention Dictation was produced using [email or web address] dictation software. please excuse any grammatical, word or spelling errors. Time with Patient: Less than 30
[2024-10-25] MEDS ORDERED: TAMSULOSIN 0.4 MG CAP.ER.24H PO SCH (16:30)
[2024-10-25 16:51] LABS: Glucose,Whole Blood 287 mg/dL (70-110)
[2024-10-25] MEDS: TAMSULOSIN 0.4 MG CAP.ER.24H PO SCH ×2 (17:02→17:10)
[2024-10-25 20:25] LABS: Glucose,Whole Blood 203 mg/dL (70-110)
[2024-10-26 04:19] LABS: HCT 28.3 % (39.6-50.0); HGB 9.1 g/dL (13.0-17.0); MCH 27.9 pg (27.0-32.0); MCHC 32.2 g/dL (32.0-37.0); MCV 86.8 fL (80.0-97.0); Mean Platelet Volume 10.7 fL (9.5-12.2); Platelet Count 193 10*3/uL (140-440); RBC 3.26 10*6/uL (4.40-5.60); RDW 14.6 % (11.5-14.5); WBC 9.05 10*3/uL (4.50-10.00)
[2024-10-26 04:35] LABS: African American GFR (CKD) >90 (>60 ml/min/1.73 sqM); Anion Gap 7 mmol/L; Blood Urea Nitrogen 9 mg/dL (9-20); Calcium 9.6 mg/dL (8.4-10.2); Carbon Dioxide 25 mmol/L (22-30); Chloride 102 mmol/L (98-107); Glucose 232 mg/dL (74-99); Non-African American GFR(CKD) >90 (>60 ml/min/1.73 sqM); Potassium 3.9 mmol/L (3.5-5.1); Sodium 134 mmol/L (137-145)
[2024-10-26 06:21] LABS: Glucose,Whole Blood 316 mg/dL (70-110)
--- NOTE | 2024-10-26 09:43 | P.PN ---
Subjective Progress Note Date: 10/26/24 Patient was seen for urinary retention. His Flomax was on at 0.4 twice daily. Objective - Vital Signs Vital signs: Vital Signs Temp 97.8 F 10/26/24 08:00 Pulse 79 10/26/24 08:00 Resp 16 10/26/24 08:00 BP 130/65 10/26/24 08:00 Pulse Ox 96 10/26/24 08:00 FiO2 21 10/23/24 08:43 Intake & Output 10/25/24 10/26/24 10/26/24 18:59 06:59 18:59 Output Total 1999 1199 Balance -1999 -1199 Output: Urine 1999 1200 Other: Voiding Method Indwelling Catheter - Labs CBC & Chem 7: 10/26/24 03:49 10/26/24 03:49 Labs: Abnormal Lab Results - Last 24 Hours (Table) 10/25/24 10/25/24 10/25/24 Range/Units 11:14 16:50 20:24 RBC (4.40-5.60) 10*6/uL Hgb (13.0-17.0) g/dL Hct (39.6-50.0) % RDW (11.5-14.5) % Sodium (137-145) mmol/L Glucose (74-99) mg/dL POC Glucose (mg/dL) 207 H 287 H 203 H (70-110) mg/dL 10/26/24 10/26/24 10/26/24 Range/Units 03:49 03:49 06:19 RBC 3.26 L (4.40-5.60) 10*6/uL Hgb 9.1 L (13.0-17.0) g/dL Hct 28.3 L (39.6-50.0) % RDW 14.6 H (11.5-14.5) % Sodium 134 L (137-145) mmol/L Glucose 232 H (74-99) mg/dL POC Glucose (mg/dL) 316 H (70-110) mg/dL Microbiology - Last 24 Hours (Table) 10/22/24 05:53 Blood Culture - Preliminary Blood 10/23/24 18:10 Urine Culture - Final Urine,Voided Assessment and Plan Assessment: Impression: If the patient michele in the hospital another 24 to 48 hours the c atheter can be removed prior to discharge for voiding trial. If he goes home today then I would do a voiding trial as an outpatient in the office. Should go home on Flomax 0.4 twice daily
[2024-10-26 11:10] LABS: Glucose,Whole Blood 228 mg/dL (70-110)
--- NOTE | 2024-10-26 12:31 | P.PN ---
Subjective Progress Note Date: 10/26/24 Principal diagnosis: Reason for follow-up is fever, Patient is a 74-year-old male with a past medical history significant for diabetes mellitus hypertension hyperlipidemia [place] CVA TIA was brought into the hospital concerning for increasing shortness of breath patient shortness of breath with exertion even at rest with associated palpitation, patient did have a fever with initial workup negative prompting this consultation. On today's evaluation that is 10/26/2024,the patient denies any fever or any chills, patient is breathing comfortably on room air, the patient denies chest pain shortness of breath and no significant cough, patient denies abdominal pain, no nausea vomiting or diarrhea. The patient continued to be complaining about his Chapa catheter. Patient white count is 9.05, creatinine 0.77 culture has been negative Objective - Vital Signs Vital signs: Vital Signs Temp 97.8 F 10/26/24 08:00 Pulse 79 10/26/24 08:00 Resp 16 10/26/24 08:00 BP 130/65 10/26/24 08:00 Pulse Ox 96 10/26/24 08:00 FiO2 21 10/23/24 08:43 Intake & Output 10/25/24 10/26/24 10/26/24 18:59 06:59 18:59 Output Total 1999 1200 Balance -1999 -1199 Output: Urine 1999 1200 Other: Voiding Method Indwelling Catheter - Exam GENERAL DESCRIPTION: An elderly male lying in bed in no distress RESPIRATORY SYSTEM: Unlabored breathing , decreased breath sounds at bases HEART: S1 S2 regular rate and rhythm , ABDOMEN: Soft , mild distention and tenderness EXTREMITIES: No edema feet - Labs CBC & Chem 7: 10/26/24 03:49 10/26/24 03:49 Labs: Abnormal Lab Results - Last 24 Hours (Table) 10/25/24 10/25/24 10/25/24 Range/Units 11:14 16:50 20:24 RBC (4.40-5.60) 10*6/uL Hgb (13.0-17.0) g/dL Hct (39.6-50.0) % RDW (11.5-14.5) % Sodium (137-145) mmol/L Glucose (74-99) mg/dL POC Glucose (mg/dL) 207 H 287 H 203 H (70-110) mg/dL 10/26/24 10/26/24 10/26/24 Range/Units 03:49 03:49 06:19 RBC 3.26 L (4.40-5.60) 10*6/uL Hgb 9.1 L (13.0-17.0) g/dL Hct 28.3 L (39.6-50.0) % RDW 14.6 H (11.5-14.5) % Sodium 134 L (137-145) mmol/L Glucose 232 H (74-99) mg/dL POC Glucose (mg/dL) 316 H (70-110) mg/dL Microbiology - Last 24 Hours (Table) 10/22/24 05:53 Blood Culture - Preliminary Blood 10/23/24 18:10 Urine Culture - Final Urine,Voided Assessment and Plan (1) Sepsis Current Visit: Yes Status: Acute Code(s): A41.9 - SEPSIS, UNSPECIFIED ORGANISM SNOMED Code(s): 00771916 (2) Allergy to multiple antibiotics Current Visit: Yes Status: Acute Code(s): Z88.1 - ALLERGY STATUS TO OTHER ANTIBIOTIC AGENTS SNOMED Code(s): 677370610 Plan: 1patient presented to hospital with shortness of breath in this patient who did have features of sepsis with fever tachycardia elevated white count but initial workup did not show clear focus of infection with a negative UA chest x-ray and CT has been negative for pneumonia patient with no joint swelling or cellulitis he did have left-sided tenderness on abdominal examination question of abdominal source. 2patient with multiple antibiotic ALLERGIES that would limit the number of antibiotic safe to use. 3patient did have CT of abdominal pelvis with contrast suggestive of cho lelithiasis and hydrops gallbladder ultrasound did not show any features of cholecystitis 4patient did have resolution of his fever white count has normalized culture have been negative so far, patient did have a UA obtained for his urinary symptoms however culture has been negative 5patient currently being treated with Levaquin and Flagyl, with the patient will continue for about a week on discharge. Dictation was produced using [employer] software. please excuse any grammatical, word or spelling errors. Time with Patient: Less than 30
[2024-10-26 16:23] LABS: Glucose,Whole Blood 179 mg/dL (70-110)
--- NOTE | 2024-10-26 16:31 | P.PN ---
Subjective Progress Note Date: 10/26/24 Patient was seen and examined. CBC and BMP significant for RBC 3.26, Hg 9.1, Hct 28.3, Na 134, glu 232. General: not toxic, no distress, appears at stated age Derm: warm, dry Head: atraumatic, normocephalic, symmetric Eyes: EOMI, no lid lag, anicteric sclera Mouth: no lip lesion, mucus membranes moist Cardiovascular: Good distal perfusion in all 4 extremities Lungs: Breathing comfortably Ext: no gross muscle atrophy, no edema, no contractures Neuro: no focal neuro deficits Psych: Alert, oriented Based on my assessment of this patient, this patient meets a high complexity level of care. Sepsis possibly due to UTI: Procal 3.3. Continue Levaquin 750 mg IV QD + Flagyl 500 mg IV BID. UCx neg. BCx prelim neg. MRSA nasal swab neg. Urinary retention: Flomax 0.8 mg PO QHS. DC Chapa catheter and attempt voiding trial. Urology on board. Vit D def.: Vit D 27.6. Replace with 50k units D2 weekly. Normocytic anemia: Stable with no signs of acute bleeding. Recommending age appropriate CA screening. Cholelithiasis without cholecystitis: As seen on GB US. Diabetes mellitus: ISS ACHS. Lispro 8 units TID. Hypertension: Hydralazine 50 mg PO TID. Metoprolol 50 mg PO QD. CAD with stenting: ASA 81 mg PO QD. Lipitor 80 mg PO QHS. Plavix 75 mg PO QHS. Chronic back pain: Fentanyl 75 mcg/hr patch Q3D. Gabapentin 900 mg PO TID. Dilaudid 4 mg PO BID. Lidocaine path 4% daily. Attempt voiding trial today. Plans for DC tomorrow on 7 days of Levaquin and Flagyl per ID. CODE STATUS: FULL CODE DVT Prophylaxis: Lovenox SQ GI Prophylaxis: Designated medical POA if patient is not able to make medical decisions for themselves: I have reviewed the following outside solar sales consultant notes: Urology, ID I have reviewed the results of the following tests: CBC, BMP. I have ordered the following tests: I have discussed the care of this patient with the following independent historian: GURMEET. I have independently interpreted the following test below: I have discussed the management of this patient with the following physician: Objective - Vital Signs Vital signs: Vital Signs Temp 97.9 F 10/26/24 13:59 Pulse 83 10/26/24 13:59 Resp 16 10/26/24 13:59 BP 156/84 10/26/24 13:59 Pulse Ox 97 10/26/24 13:59 FiO2 21 10/23/24 08:43 Intake & Output 10/25/24 10/26/24 10/26/24 18:59 06:59 18:59 Output Total 1999 1200 400 Balance -1999 -1200 -400 Output: Urine 1999 1200 400 Other: Voiding Method Indwelling Catheter Indwelling Catheter - Labs CBC & Chem 7: 10/26/24 03:49 10/26/24 03:49 Labs: Abnormal Lab Results - Last 24 Hours (Table) 10/25/24 10/25/24 10/26/24 Range/Units 16:50 20:24 03:49 RBC 3.26 L (4.40-5.60) 10*6/uL Hgb 9.1 L (13.0-17.0) g/dL Hct 28.3 L (39.6-50.0) % RDW 14.6 H (11.5-14.5) % Sodium (137-145) mmol/L Glucose (74-99) mg/dL POC Glucose (mg/dL) 287 H 203 H (70-110) mg/dL 10/26/24 10/26/24 10/26/24 Range/Units 03:49 06:19 11:09 RBC (4.40-5.60) 10*6/uL Hgb (13.0-17.0) g/dL Hct (39.6-50.0) % RDW (11.5-14.5) % Sodium 134 L (137-145) mmol/L Glucose 232 H (74-99) mg/dL POC Glucose (mg/dL) 316 H 228 H (70-110) mg/dL 10/26/24 Range/Units 16:21 RBC (4.40-5.60) 10*6/uL Hgb (13.0-17.0) g/dL Hct (39.6-50.0) % RDW (11.5-14.5) % Sodium (137-145) mmol/L Glucose (74-99) mg/dL POC Glucose (mg/dL) 179 H (70-110) mg/dL Microbiology - Last 24 Hours (Table) 10/22/24 05:53 Blood Culture - Preliminary Blood
[2024-10-26 20:14] LABS: Glucose,Whole Blood 230 mg/dL (70-110)
[2024-10-27 06:19] LABS: Glucose,Whole Blood 340 mg/dL (70-110)
[2024-10-27 11:22] LABS: Glucose,Whole Blood 312 mg/dL (70-110)
--- NOTE | 2024-10-27 12:57 | P.DS ---
Providers Date of admission: 10/20/24 08:39 Expected date of discharge: 10/27/24 Attending physician: Dutch Echevarria MD Consults: 10/20/24 11:02 Consult Physician Routine Consulting Provider: Sunny Lott Consult Reason/Comments: sepsis on unkown source Do you want consulting provider notified?: Yes 10/24/24 14:27 Consult Physician Routine Consulting Provider: Meir Razo Consult Reason/Comments: urinary retention requiring Chapa Do you want consulting provider notified?: Yes Primary care physician: Rip Granados MD Hospital Course: 74-year-old man with PMH of CAD s/p 7 stents placed (most recently 7 years ago), hypertension, hyperlipidemia, 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 In the ED he underwent extensive evaluation. Temp 100.1 F, blood pressure 153/72, heart rate 140, respiratory rate 22, SpO2 95% on room air. WBCs 12.7, hemoglobin 11.9, hematocrit 36.8, platelet 227; sodium 137, potassium 4.1, bicarb 21, BUN 15, creatinine 0.96, lactic acid 2.2, calcium 9.9, total bilirubin 0.6, AST 26, ALT 26, alkaline phosphatase 111. Troponin 0.026; D-dimer 1.30. Respiratory viral panel all negative. CXR showed no acute process. CTA chest was negative for PE and showed no acute process. EKG showed sinus tachycardia with HR of 133. Patient was started on Vancomycin, Cefepime and Flagyl and admitted for further workup and management. ID was consulted. BCx, nasal MRSA swab, UCx came back all negative. CT AP was ordered which showed cholelithiasis with hydropic gallbladder along with moderate inguinal hernia with nonobstructing small bowel and prostatomegaly. Abd US was done showing cholelithiasis with no cholecystitis. Hospital course was complicated with urinary retention requiring Chapa catheter. Urology consulted, started on Flomax BID, recommending outpatient follow up for Chapa removal. UA collected at that time did show large LE but UCx came back negative. 6/12 Patient was seen and examined. Reports discomfort due to Chapa catheter. Discussed with Dr. Lott recommending Levaquin and Flagyl for one week on discharge. No new labs are done today. Discharge Plan: Levaquin + Flagyl x 1 week per ID recommendations. Prescribed Flomax BID as well with Urology follow up within 1 week of discharge. Follow up with PCP within 1-2 days of discharge. General: not toxic, no distress, appears at stated age Derm: warm, dry Head: atraumatic, normocephalic, symmetric Eyes: EOMI, no lid lag, anicteric sclera Mouth: no lip lesion, mucus membranes moist Cardiovascular: S1 S2 reg. No murmurs. Lungs: Clear to auscultation bilaterally Ext: no gross muscle atrophy, no edema, no contractures Neuro: no focal neuro deficits Psych: Alert, oriented + Chapa Discharge Diagnosis: Sepsis unknown etiology Urinary retention Vit D def. Normocytic anemia Cholelithiasis without cholecystitis Diabetes mellitus Hypertension CAD with stenting Chronic back pain This complex discharge took 35 minutes to complete. Patient Condition at Discharge: Stable Plan - Discharge Summary Discharge Rx Participant: No New Discharge Prescriptions: New metroNIDAZOLE [Flagyl] 500 mg PO TID #21 tab Levofloxacin [Levaquin] 750 mg PO DAILY 7 Days #7 tab Tamsulosin [Flomax] 0.4 mg PO BID-W/MEALS #60 cap Continue metFORMIN HCL [Glucophage] 1,000 mg PO BID-W/MEALS Lidocaine 5% Patch [Lidoderm 5% Patch] 1 patch TRANSDERM DAILY Clopidogrel [Plavix] 75 mg PO HS Cetirizine HCl [Zyrtec] 10 mg PO HS Atorvastatin [Lipitor] 80 mg PO HS Aspirin [Adult Low Dose Aspirin EC] 81 mg PO HS Ergocalciferol (Vitamin D2) [Drisdol (50,000 Iu)] 1,250 mcg PO Q14D Gabapentin [Neurontin] 900 mg PO TID Tirzepatide [Mounjaro] 2.5 mg SQ TH Ibuprofen [Motrin] 800 mg PO Q6HR PRN #30 tab PRN Reason: Mild Pain Or Fever > 100.5 Metoprolol Succinate (ER) [Toprol XL] 50 mg PO DAILY fentaNYL 75MCG/HR PATCH [Duragesic 75MCG/HR] 1 patch TRANSDERM Q3D@0900 Albuterol Inhaler [Ventolin Hfa Inhaler] 2 puff INHALATION RT-Q4H PRN PRN Reason: Shortness Of Breath HYDROmorphone [Dilaudid] 4 mg PO BID Insulin Degludec [Tresiba Flextouch U-200 Pen] 70 units SQ HS Linaclotide [Linzess] 145 mcg PO DAILY PRN PRN Reason: Constipation hydrALAZINE HCL [Apresoline] 50 mg PO TID 30 Days #90 tab Dapagliflozin Propanediol [Farxiga] 10 mg PO DAILY Discontinued Tamsulosin [Flomax] 0.4 mg PO HS Discharge Medication List Aspirin [Adult Low Dose Aspirin EC] 81 mg PO HS 01/14/20 [History] Atorvastatin [Lipitor] 80 mg PO HS 01/14/20 [History] Cetirizine HCl [Zyrtec] 10 mg PO HS 01/14/20 [History] Clopidogrel [Plavix] 75 mg PO HS 01/14/20 [History] Lidocaine 5% Patch [Lidoderm 5% Patch] 1 patch TRANSDERM DAILY 01/14/20 [History] metFORMIN HCL [Glucophage] 1,000 mg PO BID-W/MEALS 01/14/20 [History] Albuterol Inhaler [Ventolin Hfa Inhaler] 2 puff INHALATION RT-Q4H PRN 09/14/24 [History] Ergocalciferol (Vitamin D2) [Drisdol (50,000 Iu)] 1,250 mcg PO Q14D 09/14/24 [History] Gabapentin [Neurontin] 900 mg PO TID 09/14/24 [History] HYDROmorphone [Dilaudid] 4 mg PO BID 09/14/24 [History] Insulin Degludec [Tresiba Flextouch U-200 Pen] 70 units SQ HS 09/14/24 [History] Linaclotide [Linzess] 145 mcg PO DAILY PRN 09/14/24 [History] Tirzepatide [Mounjaro] 2.5 mg SQ TH 09/15/24 [History] Ibuprofen [Motrin] 800 mg PO Q6HR PRN #30 tab 09/20/24 [Rx] hydrALAZINE HCL [Apresoline] 50 mg PO TID 30 Days #90 tab 09/20/24 [Rx] Dapagliflozin Propanediol [Farxiga] 10 mg PO DAILY 10/20/24 [History] Metoprolol Succinate (ER) [Toprol XL] 50 mg PO DAILY 10/20/24 [History] fentaNYL 75MCG/HR PATCH [Duragesic 75MCG/HR] 1 patch TRANSDERM Q3D@0900 10/20/24 [History] Levofloxacin [Levaquin] 750 mg PO DAILY 7 Days #7 tab 10/27/24 [Rx] Tamsulosin [Flomax] 0.4 mg PO BID-W/MEALS #60 cap 10/27/24 [Rx] metroNIDAZOLE [Flagyl] 500 mg PO TID #21 tab 10/27/24 [Rx] Follow up Appointment(s)/Referral(s): [facility], [NON-STAFF] - 1 Week Rip Granados MD [Primary Care Provider] - 1-2 days Jayme Hammonds MD [STAFF PHYSICIAN] - 1 Week Discharge/Stand Alone Forms: Who Do I Call?, Community Resources Discharge Disposition: HOME SELF-CARE
[2024-10-27 13:10] VITALS: BP 160/71; PULSE 94; RESP 17; TEMP 98.4
[2024-10-27 14:45] VITALS: BMI 25.9
--- NOTE | 2024-10-27 16:11 | P.PN ---
Subjective Progress Note Date: 10/27/24 Principal diagnosis: Reason for follow-up is fever, Patient is a 74-year-old male with a past medical history significant for diabetes mellitus hypertension hyperlipidemia [place] CVA TIA was brought into the hospital concerning for increasing shortness of breath patient shortness of breath with exertion even at rest with associated palpitation, patient did have a fever with initial workup negative prompting this consultation. On today's evaluation that is 10/27/2024,the patient remains to be afebrile, patient is on room air not requiring supplemental oxygen and denies any shortness of breath no chest pain or cough.Patient denies having any nausea or vomiting, no abdominal pain and no diarrhea has been reported still complaining of his urinary issues as the Chapa has to be reinserted. No new lab has been obtained today's blood and urine culture have been negative Objective - Vital Signs Vital signs: Vital Signs Temp 98 F 10/27/24 08:00 Pulse 79 10/27/24 08:00 Resp 16 10/27/24 08:00 BP 160/75 10/27/24 08:00 Pulse Ox 95 10/27/24 08:00 FiO2 21 10/23/24 08:43 Intake & Output 10/26/24 10/27/24 10/27/24 18:59 06:59 18:59 Intake Total 1000 Output Total 550 1430 Balance 450 -1430 Intake: Intake, IV Titration 1000 Amount Lactated Ringers 1,000 ml 900 @ 75 mls/hr IV .[id number] NEEL Rx#:[id number] metroNIDAZOLE-NS PMX 500 100 mg In Saline 1 100ml.bag @ 100 mls/hr IVPB Q12H NEEL Rx#:[id number] Output: Urine 475 1430 Post Void Residual 75 Other: Voiding Method Indwelling Catheter Urinal # Voids 2 - Exam GENERAL DESCRIPTION: An elderly male lying in bed in no distress RESPIRATORY SYSTEM: Unlabored breathing , decreased breath sounds at bases HEART: S1 S2 regular rate and rhythm , ABDOMEN: Soft , mild distention and tenderness EXTREMITIES: No edema feet - Labs CBC & Chem 7: 10/26/24 03:49 10/26/24 03:49 Labs: Abnormal Lab Results - Last 24 Hours (Table) 10/26/24 10/26/24 10/26/24 Range/Units 11:09 16:21 20:13 POC Glucose (mg/dL) 228 H 179 H 230 H (70-110) mg/dL 10/27/24 Range/Units 06:18 POC Glucose (mg/dL) 340 H (70-110) mg/dL Assessment and Plan (1) Sepsis Status: Acute Code(s): A41.9 - SEPSIS, UNSPECIFIED ORGANISM SNOMED Code(s): 86709651 (2) Allergy to multiple antibiotics Status: Acute Code(s): Z88.1 - ALLERGY STATUS TO OTHER ANTIBIOTIC AGENTS SNOMED Code(s): 012508076 Plan: 1patient presented to hospital with shortness of breath in this patient who did have features of sepsis with fever tachycardia elevated white count but initial workup did not show clear focus of infection with a negative UA chest x-ray and CT has been negative for pneumonia patient with no joint swelling or cellulitis he did have left-sided tenderness on abdominal examination question of abdominal source. 2patient with multiple antibiotic ALLERGIES that would limit the number of antibiotic safe to use. 3patient did have CT of abdominal pelvis with contrast suggestive of cholelithiasis and hydrops gallbladder ultrasound did not show any features of cholecystitis 4patient did have resolution of his fever white count has normalized culture have been negative so far, patient did have a UA obtained for his urinary symptoms however culture has been negative 5patient has been advised a week of oral Levaquin and Flagyl on discharge and close outpatient follow-up Dictation was produced using [employer] dictation software. please excuse any grammatical, word or spelling errors. Time with Patient: Less than 30
== END 2024-10-27 15:14 | disposition home health service (06) | DRG 872 ==
LOC: EC 19:54 → 4SSUR 22:55 → OBSVTOIN 10-20 08:39 → 4SSUR 10-25 11:55
PROVIDERS: ADMIT Student in an Organized Health Care Education/Training Program; ATTEND Student in an Organized Health Care Education/Training Program
DX: A41.9 Sepsis, unspecified organism (principal); E87.20 Acidosis, unspecified; K82.1 Hydrops of gallbladder; R16.0 Hepatomegaly, not elsewhere classified; D64.9 Anemia, unspecified; E11.42 Type 2 diabetes mellitus with diabetic polyneuropathy; I10 Essential (primary) hypertension; Z79.4 Long term (current) use of insulin; E55.9 Vitamin D deficiency, unspecified; E78.5 Hyperlipidemia, unspecified; G89.29 Other chronic pain; I25.10 Atherosclerotic heart disease of native coronary artery without angina pectoris; M19.90 Unspecified osteoarthritis, unspecified site; I25.2 Old myocardial infarction; K40.90 Unilateral inguinal hernia, without obstruction or gangrene, not specified as recurrent; K80.20 Calculus of gallbladder without cholecystitis without obstruction; N40.1 Benign prostatic hyperplasia with lower urinary tract symptoms; M54.9 Dorsalgia, unspecified; R33.8 Other retention of urine; Z79.02 Long term (current) use of antithrombotics/antiplatelets; Z79.82 Long term (current) use of aspirin; Z79.84 Long term (current) use of oral hypoglycemic drugs; Z79.899 Other long term (current) drug therapy; Z86.73 Personal history of transient ischemic attack (TIA), and cerebral infarction without residual deficits; Z87.891 Personal history of nicotine dependence; Z88.1 Allergy status to other antibiotic agents; Z95.5 Presence of coronary angioplasty implant and graft; Z85.828 Personal history of other malignant neoplasm of skin; Z88.6 Allergy status to analgesic agent; Z88.0 Allergy status to penicillin; Z88.8 Allergy status to other drugs, medicaments and biological substances; Z11.52 Encounter for screening for COVID-19; Z79.891 Long term (current) use of opiate analgesic
CPT/HCPCS: 36415; 71045; 71046; 71275; 74177; 76705; 80048; 80053; 81001; 81003; 82306; 82533; 82607; 82746; 83605; 84145; 84443; 84484; 85025; 85027; 85379; 85610; 85652; 85730; 86038; 86140; 87040; 87070; 87086; 87636; 93005; 94640; 94760; 96365; 99285